=== PATIENT | female | born 1930 | race Caucasian/White ===

== ENCOUNTER 2017-07-16 15:35 | Emergency (ER) | payer OTHER ==
[~2017-07-16] VITALS: Ht 147.3 cm; Wt 52.0 kg
[~2017-07-16 15:35] MED LIST: APIX1TAB PO; ASPEC81 PO; CHOLTAB3 PO; EVS60 PO; EZET10TA63 PO; LEVO-217 PO; LISI-725 PO; METO100T14 PO; METO50TA16 PO; SIMV40TA2 PO; ZNTT/150 PO
[2017-07-16 15:37] VITALS: TEMP 36.5; Ht 147.3 cm; Wt 52.0 kg
--- NOTE | 2017-07-16 16:22 | EMERGENCY ROOM VISIT NOTE ---
History First contact with patient: 15:42 Chief Complaint: CONFUSION Stated Complaint: CONFUSED, HALLUCINATING History of Present Illness The patient is a 87 year old female who presents to the Emergency Room with complaints of hallucinations. She is accompanied by her grandnephew, who is one of her main caretakers. Her grandnephew notes that for the past 2 days she's been hallucinating. He called her on 2 occasions and stated that she has been seeing children in the house. He is gone over the house to investigate this, and they're not been any children there. When I asked the patient, the patient states that after her grandnephew came to investigate and stated there were no children there, she felt like perhaps she was seeing things. She also states that she's been hearing voices of her grandson and daughter outside of her house, when she looked outside they were there. Her grandnephew states that she does not have a grandson or daughter. The patient denies any nausea, vomiting, diarrhea or constipation. She states "My stomach always bothers me". Her grandson states that this is a chronic complaint. She has not had any urinary complaints including dysuria or urinary frequency. However the grandson states that he went over today, and noted that her urine in the toilet bowl was very concentrated. He denies noting any caryn purulence in the urine or blood. She denies any chest pain, palpitations, orthopnea, presyncope or syncope. She' s not had any worsening lower extremity edema. There is no history of falls at home, or head trauma. Her grandnephew view states that at her baseline she does very well. She is independent, lives alone, manage her own medications, and is usually alert and oriented to person place and time. Review of Systems A 10 point review of systems was negative unless stated above. Past Medical/Surgical History Medical Problems: (1) CAD (coronary artery disease) (2) Knee pain Surgical Problems: (1) Hx of CABG The patient difficulty providing her own medical history. History is gathered from review of medication. Coronary artery disease with CABG and stenting Hypothyroidism Hypertension Hyperlipidemia GERD Osteoporosis History of pacemaker placement Social History Smoking Status: Never Smoker Smokeless Tobacco Use: No Marital Status: Occupation Status: retired Current/Historical Medications Scheduled Apixaban (Eliquis), 1 TAB PO BID Aspirin Enteric Coated (Ecotrin Or Generic *), 81 MG PO DAILY Cholecalciferol (Vitamin D3), 1,000 INTER.UNIT PO DAILY Donepezil HCl (Donepezil HCl), 5 MG PO DAILY Ezetimibe (Zetia), 10 MG PO DAILY Levothyroxine Sodium (Levothyroxine Sodium), 25 MCG PO QAM Losartan Potassium (Losartan Potassium), 50 MG PO DAILY Metoprolol Tartrate (Lopressor) (Lopressor), 100 MG PO HS Metoprolol Tartrate (Lopressor) (Lopressor), 50 MG PO HS Ranitidine (Zantac), 150 MG PO BID Sertraline HCl (Sertraline HCl), 25 MG PO DAILY Simvastatin (Zocor), 40 MG PO QPM Allergies NKA Physical Exam Vital Signs Date Time Temp Pulse Resp B/P (MAP) Pulse Ox O2 Delivery O2 Flow Rate FiO2 07/16/17 18:25 71 173/103 95 07/16/17 16:50 65 173/101 96 Room Air 07/16/17 15:37 36.5 76 20 170/113 97 Room Air Pain Rating (0-10): 0 Physical Exam Constitutional: Vital signs as above were reviewed. Eyes: Pupils equal, round, and reactive to light. Extraocular muscles are intact. No proptosis. No photophobia. ENT: Mucous membranes are moist. Oropharynx is clear. No sinus tenderness. TMs are clear bilaterally. Cardiovascular: Heart with a irregular rate and rhythm. No pedal edema appreciated. Midline sternotomy scar well-healed Respiratory: Lungs clear to auscultation bilaterally. No wheezes, rales, or rhonchi appreciated. No accessory muscle use. No retractions. No increased work of breathing. GI: Abdomen soft, nontender, nondistended. Normal active bowel sounds. No abdominal hernias appreciated. No rebound. No guarding. Mild tenderness to palpation with left flank palpation : No CVA tenderness appreciated. Musculoskeletal: No midline cervical or vertebral tenderness. No gross deformities. No bony tenderness. No calf swelling or tenderness. Integumentary: Warm, dry, no rashes appreciated. Neurological: Patient awake, alert, and oriented x 3. Normal level of consciousness. Cranial nerves two through 12 grossly intact. Motor 5 out of 5 strength bilateral upper and lower extremities. Normal finger to nose testing Negative pronator drift Lymph: No cervical lymphadenopathy appreciated. Medical Decision & Procedures Laboratory Results 07/16/17 16:15 Red Blood Count 4.63, Mean Corpuscular Volume 90.9, Mean Corpuscular Hemoglobin 29.6, Mean Corpuscular Hemoglobin Concent 32.5, Mean Platelet Volume 11.9, Neutrophils (%) (Auto) 70.6, Lymphocytes (%) (Auto) 15.3, Monocytes (%) (Auto) 12.7, Eosinophils (%) (Auto) 1.0, Basophils (%) (Auto) 0.2, Neutrophils # (Auto ) 4.05, Lymphocytes # (Auto) 0.88, Monocytes # (Auto) 0.73, Eosinophils # (Auto ) 0.06, Basophils # (Auto) 0.01 07/16/17 16:15 Test 07/16/17 16:15 07/16/17 17:15 White Blood Count 5.74 K/uL (4.8-10.8) Red Blood Count 4.63 M/uL (4.2-5.4) Hemoglobin 13.7 g/dL (12.0-16.0) Hematocrit 42.1 % (37-47) Mean Corpuscular Volume 90.9 fL (80-100) Mean Corpuscular Hemoglobin 29.6 pg (25-34) Mean Corpuscular Hemoglobin Concent 32.5 g/dl (32-36) Platelet Count 188 K/uL (130-400) Mean Platelet Volume 11.9 fL (7.4-10.4) Neutrophils (%) (Auto) 70.6 % Lymphocytes (%) (Auto) 15.3 % Monocytes (%) (Auto) 12.7 % Eosinophils (%) (Auto) 1.0 % Basophils (%) (Auto) 0.2 % Neutrophils # (Auto) 4.05 K/uL (1.4-6.5) Lymphocytes # (Auto) 0.88 K/uL (1.2-3.4) Monocytes # (Auto) 0.73 K/uL (0.11-0.59) Eosinophils # (Auto) 0.06 K/uL (0-0.5) Basophils # (Auto) 0.01 K/uL (0-0.2) RDW Standard Deviation 49.3 fL (36.4-46.3) RDW Coefficient of Variation 14.8 % (11.5-14.5) Immature Granulocyte % (Auto) 0.2 % Immature Granulocyte # (Auto) 0.01 K/uL (0.00-0.02) Anion Gap 8.0 mmol/L (3-11) Est Creatinine Clear Calc Drug Dose 46.0 ml/min Estimated GFR () 94.3 Estimated GFR (Non- 81.4 BUN/Creatinine Ratio 32.8 (10-20) Calcium Level 8.9 mg/dl (8.5-10.1) Total Bilirubin 0.4 mg/dl (0.2-1) Aspartate Amino Transf (AST/SGOT) 18 U/L (15-37) Alanine Aminotransferase (ALT/SGPT) 15 U/L (12-78) Alkaline Phosphatase 63 U/L (45-117) Troponin I 0.016 ng/ml (0-0.045) Total Protein 6.1 gm/dl (6.4-8.2) Albumin 3.3 gm/dl (3.4-5.0) Globulin 2.8 gm/dl (2.5-4.0) Albumin/Globulin Ratio 1.2 (0.9-2) Thyroid Stimulating Hormone (TSH) 5.150 uIu/ml (0.300-4.500) Urine Color YELLOW Urine Appearance CLEAR (CLEAR) Urine pH 5.5 (4.5-7.5) Urine Specific [place] 1.025 (1.000-1.030) Urine Protein NEG (NEG) Urine Glucose (UA) NEG (NEG) Urine Ketones TRACE (NEG) Urine Occult Blood NEG (NEG) Urine Nitrite NEG (NEG) Urine Bilirubin NEG (NEG) Urine Urobilinogen NEG (NEG) Urine Leukocyte Esterase NEG (NEG) ED Course 15:45 - The patient was seen and evaluated by Dr. Erich Wasserman MD [facility] Orders: CBC, CMP, Trop, UA, EKG, CXR, CT brain non-contrast 16:00 - Discussed case with Dr. Arnold, ER attending physician 17:30 - Reviewed lab studies No acute increase in white count; normal troponin No evidence of pneumonia on x-ray; UA is grossly normal EKG reviewed: Atrial fibrillation, rate controlled at 69 beats per minutes, anterolateral T wave inversions with a previous EKG to compare to 17:50 - temperature to call patient's PCP to discuss further; was unable to contact 17:55 - Reassess the patient; she is feeling well at this time Discussed normal workup; as long as patient and family were comfortable going home, we will discharge back to the care of the PCP with emphasis on close follow-up Patient and grandnephew agreeable to the plan. Grandnephew does think she will be all right at home. He will help arrange follow-up tomorrow morning. 18:05 - Patient discharged home in stable condition Medical Decision The patient presents with hallucinations. Differential for his presentation is broad and includes urinary tract infection , pneumonia, electrolyte disturbance, dehydration, acute coronary syndrome, hypoxia. We pursued a fairly extensive lab workup on her here in the emergency department. There were no gross electro abnormalities. I I had a suspicion that perhaps her urine would be positive given the family members report of very concentrated-looking urine. However given the urine itself is fairly clean appearing. Chest x-ray was unremarkable for an acute process such as pneumonia and she was not hypoxic here in the emergency department. Review of her EKG did show atrial fibrillation that is rate controlled. She is also noted to be on Eliquisat home and therefore my suspicion for cardioembolic phenomenon is very low. She did have some anterolateral T-wave inversion, but in the setting of a normal troponin, as well as not reporting any chest pain, shortness of breath, I have a very low suspicion that her presentation is ACS- related. I sat down with the family discussed my findings with the patient and her grandnephew. I noted to them the negative lab workup pursued here in the emergency department, and as long as the patient and he felt she could manage safely at home, that I would be amenable to having him discharged and to follow up closely with her family doctor. Both the patient and grandnephew were agreement with this plan. The grandnephew noted he would make an appointment for the patient this week. I myself to make an attempt to call the primary care provider to discuss this case further but she was unavailable. The patient was feeling well at the time of discharge. In my opinion she had very good insight and seemed to be aware that her hallucinations were not actually there. At this time I I feel she can be discharged home, with close PCP follow-up, and vigilance from family members. I provided him with instructions on signs and symptoms that should prompt return to the primary care provider or the emergency room for evaluation. The patient was discharged home in stable condition. Head Trauma GCS Score: 15 Blood Pressure Screening Patient's blood pressure: Elevated blood pressure Blood pressure disposition: Elevated BP felt to be situational, Referred to PCP Impression Primary Impression: Hallucination Departure Information Dispostion Home / Self-Care Condition GOOD Referrals No Doctor, Assigned (PCP) Patient Instructions My [facility] Additional Instructions You came to the emergency department because of concerns for hallucinations. We checked her labs, and they were all normal. There is no sign of an infection. Your chest x-ray is negative for pneumonia. Your urine is negative for urinary tract infection. We checked your EKG which showed some abnormalities, but in the setting of your history of heart disease with bypass and stenting, and the fact that you are not having any cardiac symptoms, this does not need to be pursued further at this time. You have atrial fibrillation, which her heart rate is well- controlled and you're on a blood thinner, both of which are the appropriate therapies for this. Because your evaluation in the emergency room was normal, and you are feeling quite well, we felt it was safe to discharge home and have you follow up closely with her primary care provider. It is very important that you see your primary care provider this week to ensure that your symptoms continue to improve. If your symptoms fail to improve, acutely worsen, please seek medical attention immediately by either calling your primary care provider or going to your nearest emergency department. Otherwise, please see your primary care provider within 3 days to ensure that your symptoms continue to improve. It was a pleasure to be involved in your care and we wish you all the best.
--- NOTE | 2017-07-16 16:37 | DIAGNOSTIC IMAGING REPORT ---
CHEST ONE VIEW PORTABLE HISTORY: altered mental status; rule-out infection COMPARISON: None. FINDINGS: Left-sided dual-chamber pacemaker. The heart is mildly enlarged. No pneumothorax. No pleural effusions. No evidence for pulmonary edema. Incidental note is made of a right-sided azygos lobe. IMPRESSION: Mild cardiomegaly. No focal lung consolidations to suggest pneumonia. Electronically signed by: Vernon Saravia M.D. 07/16/2017 4:36 PM Dictated Date/Time: 07/16/2017 4:34 PM
[2017-07-16 16:39] LABS: BASO % 0.2 %; BASO ABS # 0.01 K/uL (0-0.2); COMPLETE YES; HEMATOCRIT 42.1 % (37-47); IG% 0.2 %; LYMPH % 15.3 %; LYMPH ABS # 0.88 K/uL (1.2-3.4); MEAN CELL VOLUME 90.9 fL (80-100); MEAN CORPUSCULAR HEMOGLOBIN 29.6 pg (25-34); MEAN CORPUSCULAR HGB CONC 32.5 g/dl (32-36); MEAN PLATELET VOLUME 11.9 fL (7.4-10.4); MONO % 12.7 %; NEUT % 70.6 %; PLATELET COUNT 188 K/uL (130-400); RED BLOOD COUNT 4.63 M/uL (4.2-5.4); WHITE BLOOD COUNT 5.74 K/uL (4.8-10.8)
--- NOTE | 2017-07-16 16:52 | DIAGNOSTIC IMAGING REPORT ---
HEAD CT NONCONTRAST CT DOSE: 537.48 mGy.cm HISTORY: Altered mental status, hallucinations x 2 days TECHNIQUE: Multiaxial CT images of the head were performed without the use of intravenous contrast. Automated exposure control was utilized for this study. A dose lowering technique was utilized adhering to the principles of ALARA. Comparison: Head CT 10/29/2010. Findings: The paranasal sinuses and mastoid air cells are clear. The calvarium and skull base are intact. There is no mass, hematoma, midline shift, acute infarct. White matter hypodensity is nonspecific but suggestive of microvascular ischemic change. The ventricles and sulci demonstrate mild age-related involutional changes. Impression: No significant change compared to the prior study. No acute intracranial abnormality. Electronically signed by: Vernon Saravia M.D. 07/16/2017 4:50 PM Dictated Date/Time: 07/16/2017 4:43 PM
[2017-07-16 17:00] LABS: BUN/CREATININE RATIO 32.8 (10-20); CALCIUM 8.9 mg/dl (8.5-10.1); CREATININE 0.64 mg/dl (0.60-1.20); POTASSIUM 3.9 mmol/L (3.5-5.1)
[2017-07-16 17:05] LABS: ALB/GLOB RATIO 1.2 (0.9-2)
[2017-07-16] MEDS ORDERED: CZR50 PO (17:06)
[2017-07-16] MEDS ORDERED: ARC5 PO (17:06)
[2017-07-16] MEDS ORDERED: LEVO25TA5 PO (17:06)
[2017-07-16] MEDS ORDERED: SERT1TAB88 PO (17:06)
[2017-07-16] MEDS ORDERED: CHOL1000 PO (17:08)
[2017-07-16 17:28] LABS: URINE APPEARANCE CLEAR (CLEAR); URINE BILIRUBIN NEG (NEG); URINE COLOR YELLOW; URINE NITRITE NEG (NEG); URINE PH 5.5 (4.5-7.5); URINE SPECIFIC GRAVITY 1.025 (1.000-1.030); UROBILINOGEN NEG (NEG); ZZUR CULT IF INDIC CLEAN CATCH NO
[2017-07-16 17:40] LABS: MANUAL MICROSCOPIC REQUIRED? NO; REVIEW REQ? NO
[2017-07-16 18:25] VITALS: BP 173/103; PULSE 71; O2SAT 95
--- NOTE | 2017-07-16 20:13 | EMERGENCY ROOM VISIT NOTE ---
History Report prepared by Satish: Brad Chao Under the Supervision of: Dr. Kal Arnold M.D. First contact with patient: 15:42 Chief Complaint: CONFUSION Stated Complaint: CONFUSED, HALLUCINATING History of Present Illness The patient is a 87 year old female who presents to the Emergency Room with complaints of intermittent visual and auditory hallucinations beginning two days ago. She states that she has been seeing children who are not actually there. She states that she has been hearing voices that are not there as well. The patient estimates that she has had four episodes where she believed to see children. She has no psychiatric history. Per family, the patient is normally independent at home. He denies any known recent falls, trauma, or head injury. He states the patient is at baseline mentally other than the hallucinations. The patient has a pacemaker in place. She has a history of CABG and has two cardiac stents in place. She has complained of a headache and abdominal pain, but states that these are normal for her. The patient denies any speech slur, fevers, chills, diaphoresis, numbness, or weakness. She denies any new changes to her ambulation. Source of History: patient, family Onset: two days ago Symptom Intensity: visual and auditory Quality: other (hallucinations) Timing: intermittent Associated Symptoms: + headache, + abdominal pain, No fevers, No chills, No diaphoresis Review of Systems See HPI for pertinent positives & negatives. A total of 10 systems reviewed and were otherwise negative. Past Medical & Surgical Medical Problems: (1) CAD (coronary artery disease) (2) Knee pain Surgical Problems: (1) Hx of CABG Family History No pertinent family history stated. Social History Smoking Status: Never Smoker Marital Status: Occupation Status: retired Current/Historical Medications Scheduled Apixaban (Eliquis), 1 TAB PO BID Aspirin Enteric Coated (Ecotrin Or Generic *), 81 MG PO DAILY Cholecalciferol (Vitamin D3), 1,000 INTER.UNIT PO DAILY Donepezil HCl (Donepezil HCl), 5 MG PO DAILY Ezetimibe (Zetia), 10 MG PO DAILY Levothyroxine Sodium (Levothyroxine Sodium), 25 MCG PO QAM Losartan Potassium (Losartan Potassium), 50 MG PO DAILY Metoprolol Tartrate (Lopressor) (Lopressor), 100 MG PO HS Metoprolol Tartrate (Lopressor) (Lopressor), 50 MG PO HS Ranitidine (Zantac), 150 MG PO BID Sertraline HCl (Sertraline HCl), 25 MG PO DAILY Simvastatin (Zocor), 40 MG PO QPM Allergies Coded Allergies: No Known Allergies (Unverified , 07/16/17) Physical Exam Vital Signs Date Time Temp Pulse Resp B/P (MAP) Pulse Ox O2 Delivery O2 Flow Rate FiO2 07/16/17 18:25 71 173/103 95 07/16/17 16:50 65 173/101 96 Room Air 07/16/17 15:37 36.5 76 20 170/113 97 Room Air Physical Exam Constitutional: Vital signs reviewed. Eyes: Pupils are equal round reactive to light. Conjunctiva are noninjected. ENT: Pharynx is clear without erythema or exudate. Mucous membranes are moist. Neck supple without meningeal signs. Respiratory: Clear to auscultation bilaterally. Breath sounds are equal bilaterally. Cardiovascular: Regular rate and rhythm. No rubs or gallops. GI: Soft, nondistended and nontender. Bowel sounds are present. Musculoskeletal: No peripheral edema. No lower extremity tenderness. Integumentary: No cyanosis. Neurological: Patient is awake, alert and oriented x3. Oriented to place, but thinks she is in [facility]. Cranial nerves II-XII are intact. Motor is 5 out of 5 all extremities. Sensation is intact to light touch all extremities. Normal speech. No pronator drift. No limb ataxia. Psychiatric: Normal affect. Medical Decision & Procedures ER Provider Diagnostic Interpretation: Radiology results as stated below per my review and the radiologist's interpretation: HEAD CT NONCONTRAST Findings: The paranasal sinuses and mastoid air cells are clear. The calvarium and skull base are intact. There is no mass, hematoma, midline shift, acute infarct. White matter hypodensity is nonspecific but suggestive of microvascular ischemic change. The ventricles and sulci demonstrate mild age-related involutional changes. Impression: No significant change compared to the prior study. No acute intracranial abnormality. Electronically signed by: Vernon Saravia M.D. 07/16/2017 4:50 PM CHEST ONE VIEW PORTABLE FINDINGS: Left-sided dual-chamber pacemaker. The heart is mildly enlarged. No pneumothorax. No pleural effusions. No evidence for pulmonary edema. Incidental note is made of a right-sided azygos lobe. IMPRESSION: Mild cardiomegaly. No focal lung consolidations to suggest pneumonia. Electronically signed by: Vernon Saravia M.D. 07/16/2017 4:36 PM Laboratory Results 07/16/17 16:15 Red Blood Count 4.63, Mean Corpuscular Volume 90.9, Mean Corpuscular Hemoglobin 29.6, Mean Corpuscular Hemoglobin Concent 32.5, Mean Platelet Volume 11.9, Neutrophils (%) (Auto) 70.6, Lymphocytes (%) (Auto) 15.3, Monocytes (%) (Auto) 12.7, Eosinophils (%) (Auto) 1.0, Basophils (%) (Auto) 0.2, Neutrophils # (Auto ) 4.05, Lymphocytes # (Auto) 0.88, Monocytes # (Auto) 0.73, Eosinophils # (Auto ) 0.06, Basophils # (Auto) 0.01 07/16/17 16:15 Test 07/16/17 16:15 07/16/17 17:15 White Blood Count 5.74 K/uL (4.8-10.8) Red Blood Count 4.63 M/uL (4.2-5.4) Hemoglobin 13.7 g/dL (12.0-16.0) Hematocrit 42.1 % (37-47) Mean Corpuscular Volume 90.9 fL (80-100) Mean Corpuscular Hemoglobin 29.6 pg (25-34) Mean Corpuscular Hemoglobin Concent 32.5 g/dl (32-36) Platelet Count 188 K/uL (130-400) Mean Platelet Volume 11.9 fL (7.4-10.4) Neutrophils (%) (Auto) 70.6 % Lymphocytes (%) (Auto) 15.3 % Monocytes (%) (Auto) 12.7 % Eosinophils (%) (Auto) 1.0 % Basophils (%) (Auto) 0.2 % Neutrophils # (Auto) 4.05 K/uL (1.4-6.5) Lymphocytes # (Auto) 0.88 K/uL (1.2-3.4) Monocytes # (Auto) 0.73 K/uL (0.11-0.59) Eosinophils # (Auto) 0.06 K/uL (0-0.5) Basophils # (Auto) 0.01 K/uL (0-0.2) RDW Standard Deviation 49.3 fL (36.4-46.3) RDW Coefficient of Variation 14.8 % (11.5-14.5) Immature Granulocyte % (Auto) 0.2 % Immature Granulocyte # (Auto) 0.01 K/uL (0.00-0.02) Anion Gap 8.0 mmol/L (3-11) Est Creatinine Clear Calc Drug Dose 46.0 ml/min Estimated GFR () 94.3 Estimated GFR (Non- 81.4 BUN/Creatinine Ratio 32.8 (10-20) Calcium Level 8.9 mg/dl (8.5-10.1) Total Bilirubin 0.4 mg/dl (0.2-1) Aspartate Amino Transf (AST/SGOT) 18 U/L (15-37) Alanine Aminotransferase (ALT/SGPT) 15 U/L (12-78) Alkaline Phosphatase 63 U/L (45-117) Troponin I 0.016 ng/ml (0-0.045) Total Protein 6.1 gm/dl (6.4-8.2) Albumin 3.3 gm/dl (3.4-5.0) Globulin 2.8 gm/dl (2.5-4.0) Albumin/Globulin Ratio 1.2 (0.9-2) Thyroid Stimulating Hormone (TSH) 5.150 uIu/ml (0.300-4.500) Urine Color YELLOW Urine Appearance CLEAR (CLEAR) Urine pH 5.5 (4.5-7.5) Urine Specific [place] 1.025 (1.000-1.030) Urine Protein NEG (NEG) Urine Glucose (UA) NEG (NEG) Urine Ketones TRACE (NEG) Urine Occult Blood NEG (NEG) Urine Nitrite NEG (NEG) Urine Bilirubin NEG (NEG) Urine Urobilinogen NEG (NEG) Urine Leukocyte Esterase NEG (NEG) Laboratory results as reviewed by me. ECG Indication: altered mental status Rate (beats per minute): 69 Rhythm: atrial fibrillation Findings: PVC, T-wave inversion (V3-V6) ED Course 1542: The patient was evaluated in room C5. A complete history and physical exam was performed. Medical Decision This is an 87-year-old female who presents with hallucinations. Differential diagnosis includes intracranial mass, intracranial hemorrhage, psychiatric illness, metabolic derangement, infection. I did perform a limited focused review of portions of the patient's old chart on the electronic medical record. The patient has had no recent pertinent visits to this hospital. I did evaluate the patient as noted above. IV access was established. The patient was placed on a continuous community service aide. I did order and personally review the patient's 12-lead EKG and chest x-ray as described above. I did order and review the patient's blood work as noted in the electronic medical record. Urinalysis is negative for infection. I did order a CT of the head. I did review the images myself as well as the radiology report as described above. There is no evidence of acute intracranial process. On reassessment the patient has no complaints. At this time the cause of her hallucinations of unclear. She will follow up closely with her doctor. She was discharged in good condition. Resident Physician Supervision Note: I did evaluate and examine this patient myself. I did guide management for the patient. I agree with the resident's (Dr. Wasserman) assessment as discussed. Please see the resident's dictation for further details. Medication Reconcilliation Current Medication List: was personally reviewed by me Blood Pressure Screening Patient's blood pressure: Elevated blood pressure Blood pressure disposition: Referred to PCP Impression Primary Impression: Hallucination Additional Impression: Poorly controlled blood pressure Scribe Attestation The scribe's documentation has been prepared under my direct and personally reviewed by me in its entirety. I confirm that the note above accurately reflects all work, treatment, procedures, and medical decision making performed by me. Departure Information Dispostion Home / Self-Care Referrals No Doctor, Assigned (PCP) Forms HOME CARE DOCUMENTATION FORM, IMPORTANT VISIT INFORMATION, WORK / SCHOOL INSTRUCTIONS Patient Instructions My [facility] Additional Instructions You came to the emergency department because of concerns for hallucinations. We checked her labs, and they were all normal. There is no sign of an infection. Your chest x-ray is negative for pneumonia. Your urine is negative for urinary tract infection. We checked your EKG which showed some abnormalities, but in the setting of your history of heart disease with bypass and stenting, and the fact that you are not having any cardiac symptoms, this does not need to be pursued further at this time. You have atrial fibrillation, which her heart rate is well- controlled and you're on a blood thinner, both of which are the appropriate therapies for this. Because your evaluation in the emergency room was normal, and you are feeling quite well, we felt it was safe to discharge home and have you follow up closely with her primary care provider. It is very important that you see your primary care provider this week to ensure that your symptoms continue to improve. If your symptoms fail to improve, acutely worsen, please seek medical attention immediately by either calling your primary care provider or going to your nearest emergency department. Otherwise, please see your primary care provider within 3 days to ensure that your symptoms continue to improve. It was a pleasure to be involved in your care and we wish you all the best. Problem Qualifiers
== END 2017-07-16 18:26 | disposition home or self-care (01) ==
LOC: C.EDB 15:36 → C.EDC 18:26
DX: R44.3 Hallucinations, unspecified (principal); I48.91 Unspecified atrial fibrillation; I25.10 Atherosclerotic heart disease of native coronary artery without angina pectoris; Z95.1 Presence of aortocoronary bypass graft; Z95.5 Presence of coronary angioplasty implant and graft; E03.9 Hypothyroidism, unspecified; I10 Essential (primary) hypertension; E78.5 Hyperlipidemia, unspecified; K21.9 Gastro-esophageal reflux disease without esophagitis; M81.0 Age-related osteoporosis without current pathological fracture; Z95.0 Presence of cardiac pacemaker; Z79.01 Long term (current) use of anticoagulants; Z79.899 Other long term (current) drug therapy; Z79.82 Long term (current) use of aspirin

== ENCOUNTER 2017-08-02 12:21 | Inpatient (IN) | payer OTHER ==
[~2017-08-02] VITALS: Ht 147.3 cm; Wt 54.9 kg
[~2017-08-02 12:21] MED LIST changes: +ARC5 PO; +CHOL1000 PO; -CHOLTAB3 PO; +CZR50 PO; -EVS60 PO; -LEVO-217 PO; +LEVO25TA5 PO; -LISI-725 PO; +SERT1TAB88 PO
[2017-08-02] MEDS ORDERED: MoRPHine SULFATE 4 MG/ML 1 ML CARP\\VIAL IV STA (13:07)
[2017-08-02] MEDS ORDERED: ONDANSETRON INJ 2 MG/ML 2 ML VIAL IV STA (13:07)
--- NOTE | 2017-08-02 13:41 | DIAGNOSTIC IMAGING REPORT ---
HEAD WITHOUT CONTRAST (CT) CLINICAL HISTORY: 87 years-old Female with fall; ? head strike. Acute head injury status post fall TECHNIQUE: Multiple axial CT images of the head were obtained without contrast. A dose lowering technique was utilized adhering to the principles of ALARA. CT DOSE: 638.56 mGycm COMPARISON: CT head 07/16/2017. FINDINGS: No acute intracranial hemorrhage, midline shift, mass, or large territorial ischemia. Moderate interval atrophy, notably involving the bilateral frontal lobes. Cavum septum lucidum noted. No definite extra-axial fluid collections. Moderate background chronic microvascular ischemic changes are noted. Cerebral vascular calcifications are seen at the level of the skull base. Remote lacunar infarction of the left lentiform nucleus. The calvarium is intact. The paranasal sinuses, mastoid air cells, and middle ear cavities are clear. IMPRESSION: 1. No acute intracranial abnormality. 2. Atrophy with chronic microvascular ischemic changes. The above report was generated using voice recognition software. It may contain grammatical, syntax or spelling errors. Electronically signed by: Jaspal Og M.D. 08/02/2017 1:40 PM Dictated Date/Time: 08/02/2017 1:37 PM
[2017-08-02] MEDS ORDERED: ASPI81TA28 PO (13:54)
--- NOTE | 2017-08-02 14:13 | DIAGNOSTIC IMAGING REPORT ---
PELVIS/BILATERAL HIP 2 VIEWS CLINICAL HISTORY: fall; L pelvis and hip pain trauma. Pain. COMPARISON STUDY: None FINDINGS: Subcapital fracture left hip mild superior displacement left femoral shaft. Moderate degenerative change right hip. No additional fracture. Soft tissue vascular calcifications. IMPRESSION: Subcapital fracture left hip with moderate superior migration left femoral shaft. The above report was generated using voice recognition software. It may contain grammatical, syntax or spelling errors. Electronically signed by: Cholo Lainez M.D. 08/02/2017 2:12 PM Dictated Date/Time: 08/02/2017 2:12 PM
[2017-08-02 14:30] LABS: BASO % 0.2 %; BASO ABS # 0.02 K/uL (0-0.2); COMPLETE YES; EOS % 0.3 %; HEMATOCRIT 43.2 % (37-47); IG% 0.4 %; LYMPH ABS # 0.73 K/uL (1.2-3.4); MEAN CELL VOLUME 91.9 fL (80-100); MEAN CORPUSCULAR HEMOGLOBIN 30.2 pg (25-34); MEAN CORPUSCULAR HGB CONC 32.9 g/dl (32-36); MEAN PLATELET VOLUME 12.1 fL (7.4-10.4); MONO % 5.8 %; NEUT % 87.3 %; PLATELET COUNT 191 K/uL (130-400)
[2017-08-02 14:32] LABS: BLOOD UREA NITROGEN 15 mg/dl (7-18); BUN/CREATININE RATIO 20.9 (10-20); CALCIUM 9.2 mg/dl (8.5-10.1); CARBON DIOXIDE 27 mmol/L (21-32); CHLORIDE 106 mmol/L (98-107); CREATININE 0.72 mg/dl (0.60-1.20); GLUCOSE 125 mg/dl (70-99); POTASSIUM 4.5 mmol/L (3.5-5.1); SODIUM 139 mmol/L (136-145)
[2017-08-02 14:37] LABS: PROTHROMBIN TIME (PATIENT) 10.8 SECONDS (9.0-12.0)
--- NOTE | 2017-08-02 14:41 | EMERGENCY ROOM VISIT NOTE ---
ED Visit Note First contact with patient: 12:46 87-year-old female fell earlier today and injured her hip. The patient was fully evaluated by Manuel Arnold PA-C. Please see his note. I also independently evaluated the patient. The patient does not appear to have a head injury but does appear to have a hip fracture. Patient will require further evaluation in the hospital. The hospitalist was consulted. A consult was also placed with orthopedics.
--- NOTE | 2017-08-02 14:51 | DIAGNOSTIC IMAGING REPORT ---
CHEST ONE VIEW PORTABLE HISTORY: 87 years-old Female hip fracture preoperative exam in a patient with acute left hip fracture COMPARISON: Chest radiograph 07/16/2017 TECHNIQUE: Portable upright AP view of the chest FINDINGS: Cardiac silhouette is moderately enlarged. Prior median sternotomy. Atherosclerosis of the aorta. Surgical clips project over the left heart border. Left subclavian pacer is noted with leads overlying the right atrium and right ventricle. Azygos lobe and fissure noted. There is no pneumothorax, pleural effusion or focal airspace consolidation. No overt pulmonary edema. Bones appear grossly intact. Degenerative changes of the shoulders and spine are noted. IMPRESSION: 1. No acute cardiopulmonary process. 2. Cardiomegaly without overt pulmonary edema. The above report was generated using voice recognition software. It may contain grammatical, syntax or spelling errors. Electronically signed by: Jaspal Og M.D. 08/02/2017 2:50 PM Dictated Date/Time: 08/02/2017 2:48 PM
[2017-08-02] MEDS ORDERED: ONDANSETRON INJ 2 MG/ML 2 ML VIAL IV PRN (15:30)
[2017-08-02] MEDS ORDERED: SOD PHOSPHATE/SOD BIPHOSPHATE ENEMA 132 ML BTL PR PRN (15:45)
[2017-08-02] MEDS ORDERED: BISACODYL 10 MG SUPP PR PRN (15:45)
[2017-08-02] MEDS ORDERED: NALOXONE HCL 0.4 MG/1 ML VIAL/CARP IV PRN (15:45)
[2017-08-02] MEDS ORDERED: MAGNESIUM HYDROXIDE SUSP 30 ML UDC PO PRN (15:45)
[2017-08-02] MEDS ORDERED: IV FLUIDS COMPLETED PRN (16:00)
--- NOTE | 2017-08-02 16:21 | EMERGENCY ROOM VISIT NOTE ---
ED Visit Note First contact with patient: 12:46 Chief Complaint: I fell and hurt my left hip. History of Present Illness: Ms. Espino is a 87-year-old white female who is brought into the ED via wheelchair accompanied by her grandnephew complaining of left hip pain following a fall. Patient and grandnephew reports that she is an independent person. She does have someone help her when she needs to go to the store but she lives alone. Reported today she was going to a clinic to get her flu shot. While stepping up to the curb she tripped on the curb and fell onto her left hip. An patient reports she's been having pain since that event which happened approximately 2 hours ago. It is also reported she struck her head but did not have a loss of consciousness. Patient feels she did not strike her head. Currently she is complaining of severe pain over the greater trochanter and the anterior aspect of the hip joint. She rates her discomfort 5/10. Her pain is nonradiating. Her pain worsens with palpation, weightbearing and all movements of the hip. She has not identified any alleviating factors related to the pain. She has not had any medications for pain prior to arrival at the hospital. She denies headache, dizziness, lightheadedness, abnormal neurological symptoms , neck pain, back pain, chest pain, shortness of breath, abdominal pain, nausea , vomiting, left lower extremity weakness/numbness/tingling, right lower extremity pain. Review of Systems: As noted above in history of present illness. All body systems were reviewed and found to be negative as noted above. Past Medical History: Coronary artery disease, atrial fibrillation, hypertension , bronchitis, status post CABG. Current Medications: Medications Dose Route/Sig Max Daily Dose Days Date Category Aspirin Ec (Aspirin) 81 Mg Tab 81 Mg PO DAILY 08/02/17 Reported Vitamin D3 (Cholecalciferol) 1,000 Unit Tab 1,000 Inter.unit PO DAILY 07/16/17 Reported Sertraline HCl 25 Mg Tab 25 Mg PO DAILY 07/16/17 Reported Donepezil HCl 5 Mg Tab 5 Mg PO HS 07/16/17 Reported Losartan Potassium 50 Mg Tab 50 Mg PO DAILY 07/16/17 Reported Levothyroxine Sodium 25 Mcg Tab 25 Mcg PO QAM 07/16/17 Reported Zocor (Simvastatin) 40 Mg Tab 40 Mg PO QPM 04/30/15 Reported Eliquis (Apixaban) 2.5 Mg Tab 1 Tab PO BID 04/30/15 Reported Lopressor (Metoprolol Tartrate) 100 Mg Tab 100 Mg PO HS 04/30/15 Reported Zantac (Ranitidine HCl) 150 Mg Tab 150 Mg PO BID 10/29/10 Reported Zetia (Ezetimibe) 10 Mg Tab 10 Mg PO DAILY 10/29/10 Reported Allergies to Medications: Patient denies. Social History: Patient is currently retired; she feels safe in her home environment; she denies tobacco and alcohol use. Physical Examination: Vital Signs: Date Time Temp Pulse Resp B/P (MAP) Pulse Ox O2 Delivery O2 Flow Rate FiO2 08/02/17 15:22 75 12 138/82 95 Room Air 08/02/17 14:12 81 16 174/101 97 Nasal Cannula 2.0 08/02/17 13:29 Nasal Cannula 2.0 08/02/17 13:01 74 08/02/17 12:38 37.3 76 18 168/93 93 Room Air GENERAL: 87-year-old female in mild to moderate distress due to pain, nontoxic- appearing, afebrile and hemodynamically stable. NEUROLOGICAL: Awake, alert and oriented to person, place but not time. Answering questions appropriately and following commands. Good hand eye coordination. No focal motor sensory deficits. Cranial nerves II through XII grossly intact. SKIN: Warm, dry and pink. No soft tissue eruptions or trauma noted. HEENT: Atraumatic and normocephalic. Skull: No bony deformity, bony tenderness , swelling or ecchymosis. No raccoon's eyes or ferreira signs. No drainage in the ears of the nostril; no hemotympanum. Face: No bony tenderness, swelling or ecchymosis. PERRL. Sclera white and conjunctiva pale . No malocclusion. No intraoral trauma. Airway patent. Trachea midline. No jugular venous distention. BACK: No tenderness over the bony cervical and thoracic spine. THORAX: Lungs sounds are clear to auscultation and equal bilaterally with symmetrical chest wall. No crepitus, tenderness, subcutaneous air or deformities noted. HEART: Irregular rate and rhythm. No gallops, rubs or murmurs are appreciated. ABDOMEN: Flat, soft and nontender. Positive bowel sounds in all quadrants. No guarding, rigidity or organomegaly. PELVIS: Stable and nontender to compression and rock. UPPER EXTREMITIES: No gross bony deformity. No tenderness over the shoulders, upper arms, elbows, forearms, wrists and hands. Distal pulses and sensation are intact. LOWER EXTREMITIES: No gross bony deformity. There is mild external rotation of the left hip but no shortening. She has moderate tenderness over the entire left hip joint without any palpable crepitus. There is no swelling or ecchymosis in this area. She refused to do range of motion throughout the left extremity due to pain in the hip. There was no tenderness over the hip, lower leg, foot or ankle. She was able to wiggle the toes against resistance. Throughout the foot the skin was warm and pink and capillary refill is brisk. The right extremity had no tenderness in the hip, knee, lower leg, ankle foot. She had full range of motion of these joints and she is able to wiggle her toes. The right foot is neurologically intact. ED Course: Patient is assessed as noted above. Patient's medication list was reviewed. Laboratory Testing: Test 08/02/17 13:05 08/02/17 15:21 Range/Units White Blood Count 12.10 4.8-10.8 K/uL Red Blood Count 4.70 4.2-5.4 M/uL Hemoglobin 14.2 12.0-16.0 g/dL Hematocrit 43.2 37-47 % Mean Corpuscular Volume 91.9 80-100 fL Mean Corpuscular Hemoglobin 30.2 25-34 pg Mean Corpuscular Hemoglobin Concent 32.9 32-36 g/dl Platelet Count 191 130-400 K/uL Mean Platelet Volume 12.1 7.4-10.4 fL Neutrophils (%) (Auto) 87.3 % Lymphocytes (%) (Auto) 6.0 % Monocytes (%) (Auto) 5.8 % Eosinophils (%) (Auto) 0.3 % Basophils (%) (Auto) 0.2 % Neutrophils # (Auto) 10.56 1.4-6.5 K/uL Lymphocytes # (Auto) 0.73 1.2-3.4 K/uL Monocytes # (Auto) 0.70 0.11-0.59 K/uL Eosinophils # (Auto) 0.04 0-0.5 K/uL Basophils # (Auto) 0.02 0-0.2 K/uL RDW Standard Deviation 50.9 36.4-46.3 fL RDW Coefficient of Variation 15.0 11.5-14.5 % Immature Granulocyte % (Auto) 0.4 % Immature Granulocyte # (Auto) 0.05 0.00-0.02 K/uL Prothrombin Time 10.8 9.0-12.0 SECONDS Prothromb Time International Ratio 1.0 0.9-1.1 Activated Partial Thromboplast Time 25.8 21.0-31.0 SECONDS Partial Thromboplastin Ratio 1.0 Sodium Level 139 136-145 mmol/L Potassium Level 4.5 3.5-5.1 mmol/L Chloride Level 106 98-107 mmol/L Carbon Dioxide Level 27 21-32 mmol/L Anion Gap 6.0 3-11 mmol/L Blood Urea Nitrogen 15 7-18 mg/dl Creatinine 0.72 0.60-1.20 mg/dl Estimated GFR () 88.5 Estimated GFR (Non- 76.4 BUN/Creatinine Ratio 20.9 10-20 Random Glucose 125 70-99 mg/dl Calcium Level 9.2 8.5-10.1 mg/dl Creatine Kinase MB Ratio 0-3.0 EKG: Was read by myself and reviewed with Dr. Romero; shows atrial fibrillation with a ventricular rate of 79 bpm. There is multiple ST abnormalities but this was compared to her previous from June 2017 and no acute changes were noted. Chest x-ray: Was read by myself and the radiologist showing no acute coronary/ pulmonary process, cardiomegaly without pulmonary edema. Head CT: Was reviewed by myself and read by the radiologist showing no acute intracranial abnormalities. Atrophy with chronic microvascular ischemic changes was noted. Pelvis and Hip X-Rays: Was read by myself and the radiologist and shows subcapital fracture of the left hip with moderate superior migration of the left femoral shaft. An IV lock was initiated and patient received 4 mg of morphine IV for pain and 4 mg of Zofran IV. Patient was reassessed multiple times during her stay in the emergency department. Patient's case was reviewed with Dr. Romero; we agreed on diagnostic approach, treatment, disposition and plan per Patient's case was [facility] with [facility]. Patient and granddaughter few were educated about today's findings and instructed on her treatment plan. Clinical Impression: Left hip fracture. Status post fall. Decision-Making: Initially for her fall I considered intracranial bleed, skull fracture, hip fracture, pelvis fracture and other causes. Disposition and Plan: Patient be brought in the hospital by the [facility]; please see their notes and orders for final disposition and plan.
[2017-08-02 17:11] VITALS: BP 171/98; PULSE 82; TEMP 36.5; O2SAT 94; Ht 147.3 cm; Wt 54.9 kg
[2017-08-02 17:19] LABS: CKMB/CK RATIO 2.6 (0-3.0)
[2017-08-02 17:27] LABS: URINE APPEARANCE CLEAR (CLEAR); URINE BILIRUBIN NEG (NEG); URINE COLOR YELLOW; URINE NITRITE NEG (NEG); URINE SPECIFIC GRAVITY 1.021 (1.000-1.030); UROBILINOGEN NEG (NEG); ZZURINE CULT IF INDIC CATH NO
[2017-08-02 17:34] LABS: MANUAL MICROSCOPIC REQUIRED? NO; REVIEW REQ? NO
--- NOTE | 2017-08-02 17:43 | History and Physical ---
History & Physical Date & Time of Service: Aug 02, 2017 at 16:18 Chief Complaint: Fell, Left Hip/Leg Pain Primary Care Physician: No Doctor, Assigned History of Present Illness Source: patient, family Pt is 87y/o F with PMH a-fib, HTN, CAD, CAD with hx bypass, stents, hypercholesterolemia, hypothyroidism, dementia, depression presents with c/o L hip pain. States pt was at [facility] where she lives, and missed a step and fell. Pt thinks she may have hit her head, but denies any LOC and reports remembers falling. States was unable to bear any weight to left leg. Pt' s friend called pt's great nephew and he brought her in to ER today. Nephew reports pt c/o LYLE intermittently and c/o LYLE earlier but now pt denies any current LYLE. Nephew also reports that pt a couple of weeks ago was having hallucinations "see children running in apartment" and she was evaluated at ER at that time with essentially negative workup. Nephew reports pt does often have some confusion. Pt lives alone at the [facility] and that pt is usually independent. Denies fever/chills, diaphoresis, N/V/D/C, dizziness, syncope, vision changes, neck pain, CP, SOB, orthopnea, palpitations, cough, sore throat, choking, otalgia, rhinorrhea, abdominal pain, extremity paresthesias, extremity edema, rashes, urinary symptoms. Attempted to call pt's PCP office to verify medical hx and meds however unable to reach. Called pt's pharmacy [facility] in [place] to confirm meds. Pt has losartan listed on med list, however pharmacy states that she hasn't had that filled in months. Pt states that she does all her own meds, but is unsure what she is using at this time. Unable to find any previous echo in pt's [facility] or [facility] records. In ER today Xray hip: subcapital fracture of L hip. CXR: no acute process, cardiomegaly without overt pulmonary edema. Negative CT scan head. EKG: a-fib, rate controlled. WBC: 12, H/H 14/43. GFR>60. BP:168/93, P:76, afebrile, O2: 93% on RA. Pt was given morphine 4mg and zofran 4mg in ER. Pt states that helped with pain, however family notes that pt more sleepy since the meds. Past Medical/Surgical History Medical Problems: (1) Atrial fibrillation Status: Chronic (2) CAD (coronary artery disease) Status: Chronic (3) Dementia Status: Chronic (4) Depression Status: Chronic (5) HTN (hypertension) Status: Chronic (6) Hx of cardiac pacemaker Status: Resolved (7) Hyperlipidemia Status: Chronic (8) Hypothyroidism Status: Chronic (9) Knee pain Status: Resolved Surgical Problems: (1) Hx of CABG Status: Chronic (2) Hx of heart artery stent Status: Resolved Family History FH: CAD (coronary artery disease) BROTHER (HI age 37) FH: cancer SISTER (cervical CA) Stroke FATHER Social History Smoking Status: Never Smoker Smokeless Tobacco Use: No Alcohol Use: none Drug Use: none Marital Status: Housing status: lives alone (lives in [facility]) Occupational Status: retired Allergies Coded Allergies: No Known Allergies (Unverified , 08/02/17) Home Medications Scheduled Apixaban (Eliquis), 1 TAB PO BID Aspirin (Aspirin Ec), 81 MG PO DAILY Cholecalciferol (Vitamin D3), 1,000 INTER.UNIT PO DAILY Donepezil HCl (Donepezil HCl), 5 MG PO HS Ezetimibe (Zetia), 10 MG PO DAILY Levothyroxine Sodium (Levothyroxine Sodium), 25 MCG PO QAM Losartan Potassium (Losartan Potassium), 50 MG PO DAILY Metoprolol Tartrate (Lopressor) (Lopressor), 100 MG PO HS Ranitidine (Zantac), 150 MG PO BID Sertraline HCl (Sertraline HCl), 25 MG PO DAILY Simvastatin (Zocor), 40 MG PO QPM Review of Systems See HPI for pertinent positives & negatives. All other systems reviewed and were otherwise negative Physical Exam Vital Signs Date Time Temp Pulse Resp B/P (MAP) Pulse Ox O2 Delivery O2 Flow Rate FiO2 08/02/17 15:22 75 12 138/82 95 Room Air 08/02/17 14:12 81 16 174/101 97 Nasal Cannula 2.0 08/02/17 13:29 Nasal Cannula 2.0 08/02/17 13:01 74 08/02/17 12:38 37.3 76 18 168/93 93 Room Air General Appearance: WD/WN, no apparent distress (pt lying supine in bed) Head: normocephalic, atraumatic Eyes: normal inspection, PERRL, EOMI, sclerae normal ENT: pharynx normal, + pertinent finding (hard of hearing) Neck: supple, no JVD, trachea midline, + pertinent finding (+approx 2cm soft non-tender mass to submental/submandibular region with no overlying skin discoloration) Respiratory/Chest: chest non-tender, lungs clear, normal breath sounds, no respiratory distress, no accessory muscle use Cardiovascular: no edema, normal peripheral pulses, + irregularly irregular Abdomen/GI: normal bowel sounds, non tender, soft Extremities/Musculoskelatal: no pedal edema, + pertinent finding (Noted left leg shortened and L foot mildly rotated laterally. Left hip:diffuse mild tenderness to palpation (examined after pt given pain med and reports much decreased pain). pt unable to attempt movement of left hip. no tenderness to L upper leg, L lower leg, L ankle or foot. Pedal pushes intact bilaterally with tenderness reproduced to left hip with left pedal push. Right hip/leg non-tender , ROM hip, knee, ankle intact. Upper arms bilaterally non-tender, ROM intact. Upper and Lower Bilaterally distal pulses intact, brisk capillary refill, sensation to light touch. ) Neurologic/Psych: alert, normal mood/affect, + pertinent finding (oriented to person, place, day, year, confused on month) Skin: normal color, warm/dry Diagnostics Laboratory Results Results Past 24 Hours Test 08/02/17 13:05 08/02/17 15:21 Range/Units White Blood Count 12.10 4.8-10.8 K/uL Red Blood Count 4.70 4.2-5.4 M/uL Hemoglobin 14.2 12.0-16.0 g/dL Hematocrit 43.2 37-47 % Mean Corpuscular Volume 91.9 80-100 fL Mean Corpuscular Hemoglobin 30.2 25-34 pg Mean Corpuscular Hemoglobin Concent 32.9 32-36 g/dl Platelet Count 191 130-400 K/uL Mean Platelet Volume 12.1 7.4-10.4 fL Neutrophils (%) (Auto) 87.3 % Lymphocytes (%) (Auto) 6.0 % Monocytes (%) (Auto) 5.8 % Eosinophils (%) (Auto) 0.3 % Basophils (%) (Auto) 0.2 % Neutrophils # (Auto) 10.56 1.4-6.5 K/uL Lymphocytes # (Auto) 0.73 1.2-3.4 K/uL Monocytes # (Auto) 0.70 0.11-0.59 K/uL Eosinophils # (Auto) 0.04 0-0.5 K/uL Basophils # (Auto) 0.02 0-0.2 K/uL RDW Standard Deviation 50.9 36.4-46.3 fL RDW Coefficient of Variation 15.0 11.5-14.5 % Immature Granulocyte % (Auto) 0.4 % Immature Granulocyte # (Auto) 0.05 0.00-0.02 K/uL Prothrombin Time 10.8 9.0-12.0 SECONDS Prothromb Time International Ratio 1.0 0.9-1.1 Activated Partial Thromboplast Time 25.8 21.0-31.0 SECONDS Partial Thromboplastin Ratio 1.0 Sodium Level 139 136-145 mmol/L Potassium Level 4.5 3.5-5.1 mmol/L Chloride Level 106 98-107 mmol/L Carbon Dioxide Level 27 21-32 mmol/L Anion Gap 6.0 3-11 mmol/L Blood Urea Nitrogen 15 7-18 mg/dl Creatinine 0.72 0.60-1.20 mg/dl Estimated GFR () 88.5 Estimated GFR (Non- 76.4 BUN/Creatinine Ratio 20.9 10-20 Random Glucose 125 70-99 mg/dl Calcium Level 9.2 8.5-10.1 mg/dl Creatine Kinase MB Ratio 0-3.0 Diagnostic Radiology CXR: IMPRESSION: 1. No acute cardiopulmonary process. 2. Cardiomegaly without overt pulmonary edema. HEAD CT: IMPRESSION: 1. No acute intracranial abnormality. 2. Atrophy with chronic microvascular ischemic changes. HIP/PELVIS XRAY: IMPRESSION: Subcapital fracture left hip with moderate superior migration left femoral shaft. EKG EKG: a-fib, rate 79 compared to EKG 06/2017 at that time a-fib rate 69 with ventricular-paced complexes and st,t wave abnormality Impression Assessment and Plan SUBCAPITAL LEFT HIP FRACTURE pt with acute hip fracture s/p fall. She was given morphine in ER with moderate relief of discomfort. Type and screen was ordered in ER. CXR: no acute, cardiomegaly, negative CT head, WBC:12, H/H 14/43, GFR>60, normal co-ags, pending U/A. -npo after midnight -ortho consult, ortho notified -anesthesia consult -morphine 2mg IV Q 4hrs prn pain -zofran prn -antibiotics as per ortho -bedrest -SCDs ATRIAL FIBRILLATION Rate 79, no CP, SOB or palpitations or dizziness reported. -pt with hx pacemaker will have pacer interrogation -will hold eliquis and ASA pending probable surgery -echo -cardiology consult for pre-op clearance. cardiology notified -cardiac markers added DEMENTIA Pt appears to be at baseline currently, but mildly somnolent occurred after morphine given -continue donepezil DEPRESSION -continue zoloft HTN -continue lopressor -continue losartan HYPOTHYROIDISM -pending TSH -continue levothyroxine GERD -continue zantac DYSLIPIDEMIA lipid panel 04/2017: total: 170, HDL:81, LDL: 74, Triglycerides: 74 -continue zocor, zetia Pt had A1c 5.7 in 04/2017 per outside records DVT PROPHYLAXIS -SCDs DISPOSITION -admit tele -DNR as per discussion with pt and family -Follows with Dr Garcia for routine care Pt was seen with Dr Cummins. See addendum ATTENDING ADDENDUM: pt seen and examined, in agreement with above H&P 87 yo F sustained a fall earlier , leading to left hip fracture , baseline dementia very poor historian , does not recall having dizzy spell , lightheadedness prior to fall says she just lost her balance and fell down Xray of hip shows left subcapital femoral fracture EKG Afib rate controlled A/P : gen ; elderly female no apparent distress HEENT: NAD HT: regular S1/S2 Lungs: CTA abdomen : soft, non tender ext ; no lower ext edema neuro: no focal deficit , baseline dementia A/P : FALL LEFT HIP FRACTURE : will need ORIF of left hip has been on Eliquis for hx of Afib kept on hold given advanced age /Cardiac arrhythmia moderate to high risk for surgery ordered for ECHO , cardiac eval for pre op pt denies of any chest pain , palpitation or SOB AFIB : rate controlled cont beta eleanor hold anticoagulation Eliquis for surgery DNR/DNI please refer to H&P above for further discussion of other issues Fabiola Cummins Level of Care Telemetry Resuscitation Status DO NOT RESUSCITATE VTE Prophylaxis VTE Risk Assessment Done? Y/N: Yes Risk Level: Moderate Given or contraindicated: SCD's Social Service Consult >80 yr.& Lives Alone
[2017-08-02] MEDS: SODIUM CHLORIDE 0.9% 1000ML 1,000 ML IV SCH (18:02)
[2017-08-02 18:59] VITALS: BP 166/86; PULSE 74; TEMP 36.8; O2SAT 91
--- NOTE | 2017-08-02 20:29 | Anesthesiology Progress Note ---
Anesthesia Progress Note Date of Service Aug 02, 2017. Progress Notes Ms. Espino is a very pleasant 87 year old female who is tentatively scheduled for bipolar hip from Dr. Waggoner. Patient has NKDA. She is a very poor historian so most of this information was found on chart review. Notable outpatient medications are eliquis, although not entire sure when her last dose was (08/02/17 vs 08/01/17), will have to clarify with patient's nephew. PSH significant for CABG, cardiac cath with stents and pacemaker although patient unsure when these were done. She is oriented to person, place and time and answers questions appropriately but again does not know much about her medical history. PMH significant for CAD, HTN, A fib, pacemaker insertion, GERD, OA, hypothyroidism, depression and dementia (called mild). She was living independently prior to fall. CXR shows cardiomegaly without overt pulmonary edema. EKG HR of 79, A fib and ST and T wave abnormalities. Labs WNL and H/H of 14.2/43.2. Exam shows irregular HR, somewhat limited ROM of neck, MP 3 (2 with phonation) and edentulous. At this point, hospitalist service stated patient is moderate to high risk for surgery. Cardiology consult has been placed along with echo and these should be completed prior to taking the patient to the OR. We will have to determine exactly when her last eliquis dose was as ALIN states to do a neuraxial anesthetic (spinal), this would need to be held for a minimum of three days. If she goes to the operating room either tomorrow or Saturday, patient will likely need a GETA with +/- arterial line monitoring. She was consented for this and had all questions answered. Patient does not have children or spouse so will involve her nephew (point of contact in the chart) in decision making.
--- NOTE | 2017-08-02 20:33 | CARDIOLOGY CONSULTATION ---
DATE OF CONSULTATION: 08/02/2017 REFERRING PHYSICIAN: Dr. Fabiola Cummins. REASON FOR CONSULTATION: Preoperative risk stratification. CHIEF COMPLAINT ON ADMISSION: Fall and hip pain. HISTORY OF PRESENT ILLNESS: Ms. Espino is an 87-year-old female who suffered a mechanical fall earlier today and injured her left hip. She is found to have a left-sided hip fracture. She carries a complex cardiovascular history listed below including remote coronary artery bypass grafting and what appears to be chronic atrial fibrillation, on chronic anticoagulation. The patient denies any chest discomfort or unusual shortness of breath. No orthopnea, PND, or change in functional capacity recently. No recent hospitalizations for acute coronary syndrome, congestive heart failure, or unstable dysrhythmia. There are no prior cardiac records available for review in the [facility] or [facility] records. She apparently follows with Dr. Coley for her cardiovascular care and Dr. Garcia for primary care. Her nephew and nephew's girlfriend are present at bedside. They note intermittent confusion, particularly in the morning. The patient reports hallucinations on nearly a daily basis. She was seen in the Emergency Department approximately 2 weeks ago for these complaints. Currently, her hip pain is controlled. She offers no other complaints at this time. REVIEW OF SYSTEMS: The pertinent positives noted above, a comprehensive 10-system review is otherwise negative. PAST MEDICAL HISTORY: 1. Coronary artery disease, status post coronary artery bypass grafting. 2. Atrial fibrillation. 3. Hypothyroidism. 4. Dyslipidemia. 5. Hypertension. 6. Depression. SURGICAL HISTORY: Coronary artery bypass grafting x3 and dual-chamber pacemaker implantation, unknown date and med specialist. History otherwise is unknown, this patient is a poor historian. SOCIAL HISTORY: The patient is a lifelong nonsmoker. She is and lives alone. FAMILY HISTORY: Negative for premature CAD or sudden cardiac ; however, noncontributory given patient's age. OUTPATIENT MEDICATIONS: 1. Eliquis 2.5 mg twice daily. 2. Aspirin 81 mg daily. 3. Donepezil 5 mg daily. 4. Zetia 10 mg daily. 5. Synthroid 25 mcg daily. 6. Losartan 50 mg daily. 7. Lopressor 100 mg at night, 50 mg in the a.m. 8. Zantac 150 mg twice daily. 9. Zoloft 25 mg daily. 10. Simvastatin 40 mg daily. ALLERGIES: No known drug allergies. ECG ON ADMISSION: Atrial fibrillation with diffuse ST-T wave abnormality in the inferior and anterolateral leads, consider ischemia. Compared to most recent ECG available from 07/16/2017. ST-T wave abnormality is more pronounced. LABORATORY DATA: White blood cell count 12.10, hemoglobin is 14.2, platelet count is 191. Sodium 139, chloride 106, CO2 is 27, BUN is 15, creatinine 0.72. Cardiac enzymes are negative. Her TSH is 7.970. INR is 1.0. Urinalysis is pending. Chest x-ray on admission demonstrates dual-chamber pacemaker, no congestive heart failure. CT of the head demonstrates no acute intracranial abnormality. Pelvis x-ray demonstrates subcapital fracture of the left hip with moderate superior migration of left femoral shaft. PHYSICAL EXAMINATION: VITAL SIGNS: Temperature is 37.3 degrees centigrade, pulse 75 beats per minute and regular, respiratory rate is 12 breaths per minute, blood pressure 138/82, SAO2 is 95% on room air. GENERAL: NAD, hard of hearing, poor historian. HEENT: Mucous membranes moist. No scleral icterus. Conjunctivae pink. NECK: Supple without JVD or HJR. No carotid bruit. HEART: Irregular with normal S1 and S2. There is no murmur, rub or gallop appreciated. LUNGS: Clear without rales, rhonchi or wheeze. ABDOMEN: Soft, nontender. No rebound or guarding. EXTREMITIES: Warm and dry without clubbing, cyanosis, or edema. NEUROLOGIC: Demonstrates no focal motor deficit. FINAL IMPRESSION: 1. An 87-year-old female with a fall and left-sided hip fracture. The patient is considered at least moderate perioperative risk. 2. Atrial fibrillation which may be chronic -- the patient is asymptomatic. 3. Abnormal ECG with ST-T wave abnormality as described above. 4. Chronic coronary artery disease without evidence of acute coronary syndrome or exertional angina. 5. Hypertension -- borderline controlled. 6. Dyslipidemia. 7. Hypothyroidism with elevated TSH. 8. Fall risk. PLAN AND RECOMMENDATIONS: Resting 2D transthoracic echo will be performed in a.m. to assess LV systolic function. We will obtain records from Dr. Coley to assess ECG compared to previous studies. Pacemaker interrogation will also be requested to assess duration of atrial fibrillation. She will continue her current cardiovascular medications including beta-eleanor, aspirin, losartan, Zetia, and simvastatin. Eliquis will be placed on hold. The patient ideally should have this medication held for 48 hours prior to any surgery to reduce bleeding risk. This was discussed with the patient and her family at bedside. Further recommendations pending review of medical records and 2D transthoracic echo in a.m. Thank you for allowing me to take part in the care of your patient. HUNTER
[2017-08-02] MEDS ORDERED: METOPROLOL TARTRATE 100 MG TAB PO SCH (21:00)
[2017-08-02] MEDS: METOPROLOL SUCC 50MG EXT REL TAB PO SCH (21:35)
[2017-08-02] MEDS: RANITIDINE HCL 150 MG TAB PO SCH (21:35)
[2017-08-02] MEDS: DOCUSATE SODIUM/SENNA 50/8.6MG TAB PO SCH (21:35)
[2017-08-02] MEDS: DONEPEZIL HCL 5 MG TAB PO SCH (21:36)
[2017-08-02] MEDS: SIMVASTATIN 40 MG TAB PO SCH (21:37)
--- NOTE | 2017-08-02 22:44 | DIAGNOSTIC IMAGING REPORT ---
LEFT FEMUR 2 VIEWS CLINICAL HISTORY: Fall with left leg pain. No femoral fracture. Findings: AP and crosstable lateral portable views of the left femur are correlated with left hip radiographs performed the same day 08/02/2017. The skeletal structures are osteopenic. There is an impacted and distracted subcapital fracture of the left femur. No additional femoral fracture is seen. The distal femur is intact. The knee joint is grossly maintained. Soft tissue edema is seen overlying the left hip. The visualized left hemipelvis appears maintained. There is advanced atherosclerotic calcification of the left femoral artery. Surgical clips are noted in the distal thigh. IMPRESSION: 1. There is an impacted and distracted subcapital fracture of the left femur, not significantly changed from today's earlier examination. 2. No distal femoral fracture is seen. Electronically signed by: Timothy Estrella M.D. 08/02/2017 10:43 PM Dictated Date/Time: 08/02/2017 10:40 PM
[2017-08-02 23:00] VITALS: BP 174/100; PULSE 89; TEMP 37.2; O2SAT 92
[2017-08-02] MEDS: MoRPHine SULFATE 2 MG/ML CARP IV PRN (23:28)
[2017-08-03] VITALS (10 sets, daily range): BP systolic 104–160; BP diastolic 56–89; PULSE 8–101; TEMP 36.4–36.9; O2SAT 92–97
[2017-08-03] MEDS ORDERED: CEFAZOLIN IV 2,000 MG in DEXTROSE 5% 50ML 50 ML IV SCH (06:00)
[2017-08-03] MEDS ORDERED: CEFAZOLIN 2000MG IV PUSH 10 ML IV SCH (06:00)
[2017-08-03] MEDS: LEVOTHYROXINE 25 MCG TAB PO SCH (06:16)
[2017-08-03 06:21] LABS: HEMATOCRIT 37.6 % (37-47); MEAN CELL VOLUME 91.9 fL (80-100); MEAN CORPUSCULAR HEMOGLOBIN 30.1 pg (25-34); MEAN CORPUSCULAR HGB CONC 32.7 g/dl (32-36); PLATELET COUNT 144 K/uL (130-400); RED BLOOD COUNT 4.09 M/uL (4.2-5.4); WHITE BLOOD COUNT 8.88 K/uL (4.8-10.8)
[2017-08-03 06:54] LABS: BUN/CREATININE RATIO 26.8 (10-20); CALCIUM 8.2 mg/dl (8.5-10.1); CREATININE 0.53 mg/dl (0.60-1.20); POTASSIUM 4.1 mmol/L (3.5-5.1)
[2017-08-03] MEDS: SODIUM CHLORIDE 0.9% 1000ML 1,000 ML IV SCH (07:36)
--- NOTE | 2017-08-03 08:41 | Progress Note ---
Medicine Progress Note Date & Time of Visit: Aug 03, 2017 at 08:29. Subjective seen sitting up in bed, comfortable oriented x 2, somewhat confused, but pleasant states she feels fine overall denies hip pain denies chest pain,dyspnea, palpitations no other symptoms Objective Last 8 Hrs Date Time Temp Pulse Resp B/P (MAP) Pulse Ox O2 Delivery O2 Flow Rate FiO2 08/03/17 04:02 Room Air 08/03/17 03:45 36.6 63 18 157/82 (107) 92 Room Air Physical Exam: General- oriented x2, not in distress Head- atraumatic Eyes- PERRL, EOMI, anicteric ENT- (+) hard of hearing, oropharynx clear Neck- supple, no JVD, no adenopathy, no thyromegaly; carotids +2/2, no bruits appreciated Lungs- clear to auscultation bilaterally Heart- normal rate, irregularly irregular rhythm; no murmurs Abdomen- normal bowel sounds, soft, nontender Extremities- no pretibial edema, no calf tenderness; peripheral pulses intact Neuro- alert, oriented x 2; PERRL, EOMI; no facial palsy; no dysarthria; motor 5 /5 bilaterally; sensation 100% Skin- warm & dry Laboratory Results: Last 24 Hours Test 08/02/17 13:05 08/02/17 16:20 08/03/17 05:37 White Blood Count 12.10 K/uL 8.88 K/uL Red Blood Count 4.70 M/uL 4.09 M/uL Hemoglobin 14.2 g/dL 12.3 g/dL Hematocrit 43.2 % 37.6 % Mean Corpuscular Volume 91.9 fL 91.9 fL Mean Corpuscular Hemoglobin 30.2 pg 30.1 pg Mean Corpuscular Hemoglobin Concent 32.9 g/dl 32.7 g/dl Platelet Count 191 K/uL 144 K/uL Mean Platelet Volume 12.1 fL 12.0 fL Neutrophils (%) (Auto) 87.3 % Lymphocytes (%) (Auto) 6.0 % Monocytes (%) (Auto) 5.8 % Eosinophils (%) (Auto) 0.3 % Basophils (%) (Auto) 0.2 % Neutrophils # (Auto) 10.56 K/uL Lymphocytes # (Auto) 0.73 K/uL Monocytes # (Auto) 0.70 K/uL Eosinophils # (Auto) 0.04 K/uL Basophils # (Auto) 0.02 K/uL RDW Standard Deviation 50.9 fL 50.0 fL RDW Coefficient of Variation 15.0 % 14.7 % Immature Granulocyte % (Auto) 0.4 % Immature Granulocyte # (Auto) 0.05 K/uL Prothrombin Time 10.8 SECONDS Prothromb Time International Ratio 1.0 Activated Partial Thromboplast Time 25.8 SECONDS Partial Thromboplastin Ratio 1.0 Sodium Level 139 mmol/L 139 mmol/L Potassium Level 4.5 mmol/L 4.1 mmol/L Chloride Level 106 mmol/L 106 mmol/L Carbon Dioxide Level 27 mmol/L 26 mmol/L Anion Gap 6.0 mmol/L 6.0 mmol/L Blood Urea Nitrogen 15 mg/dl 14 mg/dl Creatinine 0.72 mg/dl 0.53 mg/dl Estimated GFR () 88.5 100.3 Estimated GFR (Non- 76.4 86.6 BUN/Creatinine Ratio 20.9 26.8 Random Glucose 125 mg/dl 114 mg/dl Calcium Level 9.2 mg/dl 8.2 mg/dl Total Creatine Kinase 108 U/L Creatine Kinase MB 2.8 ng/ml Creatine Kinase MB Ratio 2.6 Troponin I < 0.015 ng/ml Thyroid Stimulating Hormone (TSH) 7.970 uIu/ml Urine Color YELLOW Urine Appearance CLEAR Urine pH 7.0 Urine Specific [place] 1.021 Urine Protein NEG Urine Glucose (UA) NEG Urine Ketones NEG Urine Occult Blood NEG Urine Nitrite NEG Urine Bilirubin NEG Urine Urobilinogen NEG Urine Leukocyte Esterase NEG Est Creatinine Clear Calc Drug Dose 55.5 ml/min Free Thyroxine 1.24 ng/dl Date/Time Source Procedure Growth Status 08/02/17 18:06 Nasal MRSA DNA Surveillance Screen - Final Specimen Negative for MRSA by DNA Probe Complete Assessment & Plan 87 year old female with history of CAD, CABG/Stent, s/p PM, A fib on Eliquis, HTN, Dementia and other problems noted below presented with fall and hip pain. SUBCAPITAL LEFT HIP FRACTURE S/P MECHANICAL FALL - pain under good control hemodynamically stable, denies cardiac symptoms - Ortho consulted, awaiting recommendations Cardiology consulted, echo and Pacemaker interrogation pending, at least moderate risk for cardiac surgery HISTORY OF CAD/CABG/STENT PLACEMENT ATRIAL FIBRILLATION ON ELIQUIS S/P PACEMAKER - denies cardiac symptoms A fib , rate controlled - Cardiology on board - Echo and PM interrogation pending - Eliquis and ASA on hold on Losartan, Metoprolol, Simvastatin DEMENTIA Pt appears to be at baseline currently -continue donepezil DEPRESSION -continue zoloft HTN -continue lopressor -continue losartan HYPOTHYROIDISM - TSH 7, free T4 normal subclinical hypothyroidism - continue Lthyroxine GERD -continue zantac DYSLIPIDEMIA lipid panel 04/2017: total: 170, HDL:81, LDL: 74, Triglycerides: 74 -continue zocor, zetia Pt had A1c 5.7 in 04/2017 per outside records DVT PROPHYLAXIS - will need Heparijn subcutaneous DISPOSITION anticipate d/c to Rehab/SNF when medically stable Ortho ff up Cardio ff up follows with Dr. Garcia Current Inpatient Medications: Current Inpatient Medications Medications (Trade) Dose Ordered Sig/Jyothi Route Start Time Stop Time Status Last Admin Dose Admin Ondansetron HCl (Zofran Inj) 4 mg Q6H PRN IV 08/02/17 15:30 09/01/17 15:29 Morphine Sulfate (MoRPHine SULFATE INJ) 2 mg Q4 PRN IV 08/02/17 15:45 08/16/17 15:44 08/02/17 23:28 2 MG Naloxone HCl (Narcan Inj) 0.1 mg PRN PRN IV 08/02/17 15:45 09/01/17 15:44 Senna/Docusate Sodium (Senokot S Tab) 2 tab HS PO 08/02/17 21:00 09/01/17 20:59 08/02/17 21:35 2 TAB Polyethylene (Miralax Powder Packet) 17 gm DAILY PRN PO 08/02/17 15:45 09/01/17 15:44 Magnesium Hydroxide (Milk Of Magnesia Susp) 30 ml DAILY PRN PO 08/02/17 15:45 09/01/17 15:44 Bisacodyl (Dulcolax Supp) 10 mg DAILY PRN [place] 08/02/17 15:45 09/01/17 15:44 Sodium Biphosphate/ Sodium Phosphate (Fleet Enema) 132 ml PRN PRN [place] 08/02/17 15:45 Miscellaneous (Iv Fluids Completed) 1 ea PRN PRN N/A 08/02/17 16:00 08/02/18 15:59 Donepezil HCl (Aricept Tab) 5 mg HS PO 08/02/17 21:00 09/01/17 20:59 08/02/17 21:36 5 MG EZETIMIBE (Zetia Tab) 10 mg DAILY PO 08/03/17 09:00 09/02/17 08:59 Levothyroxine Sodium (Synthroid Tab) 25 mcg DAILYBB PO 08/03/17 06:00 09/02/17 06:59 08/03/17 06:16 25 MCG Losartan Potassium (coZAAR TAB) 50 mg DAILY PO 08/03/17 09:00 09/02/17 08:59 Ranitidine HCl (zANTac TAB) 150 mg BID PO 08/02/17 21:00 09/01/17 20:59 08/02/17 21:35 150 MG Simvastatin (Zocor Tab) 40 mg QPM PO 08/02/17 21:00 09/01/17 20:59 08/02/17 21:37 40 MG Sertraline HCl (Zoloft Tab) 25 mg DAILY PO 08/03/17 09:00 09/02/17 08:59 Metoprolol Succinate (Toprol Xl Tab) 100 mg HS PO 08/02/17 21:00 09/01/17 20:59 08/02/17 21:35 100 MG Sodium Chloride 1,000 ml @ 75 mls/hr [id number] IV 08/02/17 18:00 09/01/17 17:59 08/03/17 07:36 75 MLS/HR Cefazolin Sodium 10 ml @ 2.5 mls/min PREOP IV 08/03/17 06:00 08/03/17 18:00
[2017-08-03] MEDS: SERTRALINE HCL 50 MG TAB PO SCH (08:48)
[2017-08-03] MEDS: RANITIDINE HCL 150 MG TAB PO SCH ×3 (08:48→20:51)
[2017-08-03] MEDS: EZETIMIBE 10MG TAB PO SCH (08:49)
[2017-08-03] MEDS: LOSARTAN POTASSIUM 50 MG TAB PO SCH (08:50)
--- NOTE | 2017-08-03 09:45 | ECHOCARDIOGRAM REPORT ---
*NOTICE TO RECEIVING [employer] This information is strictly Confidential and protected under [place] law. [place] law prohibits you from making any further disclosure of this information unless further disclosure is expressly permitted by the written consent of the person to whom it pertains or is authorized by law. A general authorization for the release of medical or other information is not sufficient for this purpose. Hospital accepts no responsibility if the information is made available to any other person, INCLUDING THE PATIENT. Interpretation Summary * Name: MANE FELICIANO Study Date: 08/03/2017 06:25 AM BP: 157/82 mmHg * Patient Location: C.2E\S\E203\S\1 HR: 63 * : 1930 (M/d/yyyy) Gender: Female Height: 57 in * Age: 87 yrs Ethnicity: [place] Weight: 111 lb * Ordering Physician: Kal Sexton * Referring Physician: Self, Referred * Performed By: Jerri Cardozo RDCS * * Reason For Study: AFIB * BSA: 1.4 m2 * -- Conclusions -- * The left ventricular cavity is small. * There is severe concentric left ventricular hypertrophy. * Left ventricular systolic function is normal. * The left ventricular wall motion is normal. * Ejection Fraction = 65-70%. * Diastolic dysfunction, Grade III (restrictive pattern), consistent with markedly increased left atrial pressure. * The left atrium is severely dilated. * There is mild mitral regurgitation. * There is moderate tricuspid regurgitation. * Right ventricular systolic pressure is elevated at 40-50mmHg. * There is a pacemaker lead in the right ventricle. Procedure Details * A complete two-dimensional transthoracic echocardiogram was performed (2D, M-mode, Doppler and color flow Doppler). Left Ventricle * The left ventricular cavity is small. * There is severe concentric left ventricular hypertrophy. * Left ventricular systolic function is normal. * Ejection Fraction = 65-70%. * The left ventricular wall motion is normal. Right Ventricle * The right ventricle is normal in size and function. * There is a pacemaker lead in the right ventricle. Atria * The left atrium is severely dilated. * Right atrial size is normal. * No ASD detected; PFO is not assessed. Mitral Valve * The mitral valve anatomy is normal. * There is no mitral valve stenosis. * There is mild mitral regurgitation. Tricuspid Valve * The tricuspid valve anatomy is normal. * There is no tricuspid stenosis. * There is moderate tricuspid regurgitation. * Right ventricular systolic pressure is elevated at 40-50mmHg. Aortic Valve * The aortic valve is trileaflet. * Aortic valve sclerosis moderate, without significant aortic valvular stenosis. * No aortic regurgitation is present. Pulmonic Valve * The pulmonic valve is not well visualized. Great Vessels * The aortic root is normal size. Pericardium/Pleural * There is no pericardial effusion. Great Vessels * Normal inferior vena cava diameter and respiratory variation suggests normal central venous pressure. Left Ventricular Diastolic Function * Diastolic dysfunction, Grade III (restrictive pattern), consistent with markedly increased left atrial pressure. MMode 2D Measurements and Calculations IVSd 1.4 cm IVSs 1.8 cm LVIDd 3.7 cm LVIDs 2.4 cm LVPWd 1.6 cm LVPWs 2.1 cm IVS/LVPW 0.87 FS 34.9 % EDV(Teich) 57.6 ml ESV(Teich) 20.1 ml EF(Teich) 65.0 % EDV(cubed) 50.1 ml ESV(cubed) 13.8 ml EF(cubed) 72.4 % % IVS thick 33.1 % % LVPW thick 34.8 % LV mass(C)d 198.7 grams LV mass(C)dI 141.9 grams/m\S\2 LV mass(C)s 198.1 grams LV mass(C)sI 141.5 grams/m\S\2 SV(Teich) 37.4 ml SI(Teich) 26.7 ml/m\S\2 SV(cubed) 36.3 ml SI(cubed) 25.9 ml/m\S\2 Ao root diam 2.8 cm Ao root area 6.1 cm\S\2 LVOT diam 1.9 cm LVOT area 2.7 cm\S\2 LVAd ap4 20.3 cm\S\2 LVLd ap4 6.7 cm EDV(MOD-sp4) 53.3 ml EDV(sp4-el) 52.3 ml LVAs ap4 11.9 cm\S\2 LVLs ap4 6.1 cm ESV(MOD-sp4) 24.5 ml ESV(sp4-el) 20.0 ml EF(MOD-sp4) 54.0 % EF(sp4-el) 61.8 % LVAd ap2 20.3 cm\S\2 LVLd ap2 6.9 cm EDV(MOD-sp2) 53.1 ml EDV(sp2-el) 50.5 ml LVAs ap2 11.1 cm\S\2 LVLs ap2 5.9 cm ESV(MOD-sp2) 20.8 ml ESV(sp2-el) 17.7 ml EF(MOD-sp2) 60.8 % EF(sp2-el) 65.0 % LVLd %diff 3.1 % EDV(MOD-bp) 52.9 ml LVLs %diff -3.15 % ESV(MOD-bp) 23.0 ml EF(MOD-bp) 56.6 % SV(MOD-sp4) 28.8 ml SI(MOD-sp4) 20.5 ml/m\S\2 SV(MOD-sp2) 32.3 ml SI(MOD-sp2) 23.0 ml/m\S\2 SV(MOD-bp) 30.0 ml SI(MOD-bp) 21.4 ml/m\S\2 SV(sp4-el) 32.3 ml SI(sp4-el) 23.1 ml/m\S\2 SV(sp2-el) 32.9 ml SI(sp2-el) 23.5 ml/m\S\2 Doppler Measurements and Calculations MV E max ruthie 133.3 cm/sec MV dec time 0.21 sec Ao V2 max 119.7 cm/sec Ao max PG 5.7 mmHg Ao max PG (full) 3.6 mmHg TOSHIA(V,A) 1.6 cm\S\2 TOSHIA(V,D) 1.6 cm\S\2 LV V1 max PG 2.1 mmHg LV V1 max 72.5 cm/sec TR max ruthie 331.7 cm/sec
--- NOTE | 2017-08-03 09:57 | Orthopedic Consultation ---
Orthopedic Consultation Date of Consultation: Aug 03, 2017. Attending Physician: Matt Parker MD History of Present Illness The patient is an 87-year-old female who presented to [facility] [place] after a fall sustained on 08/02/2017 with complaints of inability to walk with complaints of left hip pain. She was found to have a left hip fracture and subsequently admitted for surgical intervention and medical management. The patient denies losing consciousness however she is a poor historian. She denies any pain in her upper extremities or right lower extremity. She denies any numbness or tingling in her left lower extremity. Past Medical/Surgical History Medical Problems: (1) Hallucination Status: Acute Family History FH: CAD (coronary artery disease) BROTHER ([place] age 37) FH: cancer SISTER (cervical [place]) Stroke FATHER Social History Smoking Status: Never Smoker Smokeless Tobacco Use: No Alcohol Use: none Drug Use: none Marital Status: Occupation Status: retired Allergies Coded Allergies: No Known Allergies (Unverified , 08/02/17) Home Medications Scheduled Apixaban (Eliquis), 1 TAB PO BID Aspirin (Aspirin Ec), 81 MG PO DAILY Cholecalciferol (Vitamin D3), 1,000 INTER.UNIT PO DAILY Donepezil HCl (Donepezil HCl), 5 MG PO HS Ezetimibe (Zetia), 10 MG PO DAILY Levothyroxine Sodium (Levothyroxine Sodium), 25 MCG PO QAM Losartan Potassium (Losartan Potassium), 50 MG PO DAILY Metoprolol Tartrate (Lopressor) (Lopressor), 100 MG PO HS Ranitidine (Zantac), 150 MG PO BID Sertraline HCl (Sertraline HCl), 25 MG PO DAILY Simvastatin (Zocor), 40 MG PO QPM Current Inpatient Medications Current Inpatient Medications Medications (Trade) Dose Ordered Sig/Jyothi Route Start Time Stop Time Status Last Admin Dose Admin Ondansetron HCl (Zofran Inj) 4 mg Q6H PRN IV 08/02/17 15:30 09/01/17 15:29 Morphine Sulfate (MoRPHine SULFATE INJ) 2 mg Q4 PRN IV 08/02/17 15:45 08/16/17 15:44 08/02/17 23:28 2 MG Naloxone HCl (Narcan Inj) 0.1 mg PRN PRN IV 08/02/17 15:45 09/01/17 15:44 Senna/Docusate Sodium (Senokot S Tab) 2 tab HS PO 08/02/17 21:00 09/01/17 20:59 08/02/17 21:35 2 TAB Polyethylene (Miralax Powder Packet) 17 gm DAILY PRN PO 08/02/17 15:45 09/01/17 15:44 Magnesium Hydroxide (Milk Of Magnesia Susp) 30 ml DAILY PRN PO 08/02/17 15:45 09/01/17 15:44 Bisacodyl (Dulcolax Supp) 10 mg DAILY PRN [place] 08/02/17 15:45 09/01/17 15:44 Sodium Biphosphate/ Sodium Phosphate (Fleet Enema) 132 ml PRN PRN [place] 08/02/17 15:45 Miscellaneous (Iv Fluids Completed) 1 ea PRN PRN N/A 08/02/17 16:00 08/02/18 15:59 Donepezil HCl (Aricept Tab) 5 mg HS PO 08/02/17 21:00 09/01/17 20:59 08/02/17 21:36 5 MG EZETIMIBE (Zetia Tab) 10 mg DAILY PO 08/03/17 09:00 09/02/17 08:59 08/03/17 08:49 10 MG Levothyroxine Sodium (Synthroid Tab) 25 mcg DAILYBB PO 08/03/17 06:00 09/02/17 06:59 08/03/17 06:16 25 MCG Losartan Potassium (coZAAR TAB) 50 mg DAILY PO 08/03/17 09:00 09/02/17 08:59 08/03/17 08:50 50 MG Ranitidine HCl (zANTac TAB) 150 mg BID PO 08/02/17 21:00 09/01/17 20:59 08/03/17 08:48 150 MG Simvastatin (Zocor Tab) 40 mg QPM PO 08/02/17 21:00 09/01/17 20:59 08/02/17 21:37 40 MG Sertraline HCl (Zoloft Tab) 25 mg DAILY PO 08/03/17 09:00 09/02/17 08:59 08/03/17 08:48 25 MG Metoprolol Succinate (Toprol Xl Tab) 100 mg HS PO 08/02/17 21:00 09/01/17 20:59 08/02/17 21:35 100 MG Sodium Chloride 1,000 ml @ 60 mls/hr [id number] IV 08/02/17 18:00 09/01/17 17:59 08/03/17 07:36 75 MLS/HR Cefazolin Sodium 10 ml @ 2.5 mls/min PREOP IV 08/03/17 06:00 08/03/17 18:00 Review of Systems ROS negative exception for those mentioned in HPI above. Physical Exam Date Time Temp Pulse Resp B/P (MAP) Pulse Ox O2 Delivery O2 Flow Rate FiO2 08/03/17 08:00 94 Nasal Cannula 2.0 08/03/17 08:00 36.9 77 14 160/80 (106) 94 Nasal Cannula 2.0 08/03/17 04:02 Room Air 08/03/17 03:45 36.6 63 18 157/82 (107) 92 Room Air 08/03/17 00:02 Room Air 08/03/17 00:01 149/89 (109) 08/02/17 23:00 37.2 89 16 174/100 (124) 92 Room Air 08/02/17 20:00 Room Air 08/02/17 18:59 36.8 74 18 166/86 (112) 91 Room Air 08/02/17 17:11 36.5 82 18 171/98 94 Room Air 08/02/17 15:22 75 12 138/82 95 Room Air 08/02/17 14:12 81 16 174/101 97 Nasal Cannula 2.0 08/02/17 13:29 Nasal Cannula 2.0 08/02/17 13:01 74 08/02/17 12:38 37.3 76 18 168/93 93 Room Air NAD AO to person/place B/L UE NVSI +M/R/U/AIN/PIN SILT grossly, +2 radial pulse, compartments soft, full painless ROM shoulder, elbow, wrist, fingers. RLE NVSI +EHL/FHL/TA/GS SILT grossly, CR< 2 seconds, +2 DP Pulse, compartments soft NT, full painless ROM hip, knee, ankle LLE NVSI +EHL/FHL/TA/GS SILT grossly, CR< 2 seconds, +2 DP Pulse, compartments soft NT, no tenderness to palpation to knee or ankle, +log roll, ROM deferred secondary to fracture, skin intact over left hip. Laboratory Results Last 24 Hours Test 08/02/17 13:05 08/02/17 16:20 08/03/17 05:37 White Blood Count 12.10 K/uL 8.88 K/uL Red Blood Count 4.70 M/uL 4.09 M/uL Hemoglobin 14.2 g/dL 12.3 g/dL Hematocrit 43.2 % 37.6 % Mean Corpuscular Volume 91.9 fL 91.9 fL Mean Corpuscular Hemoglobin 30.2 pg 30.1 pg Mean Corpuscular Hemoglobin Concent 32.9 g/dl 32.7 g/dl Platelet Count 191 K/uL 144 K/uL Mean Platelet Volume 12.1 fL 12.0 fL Neutrophils (%) (Auto) 87.3 % Lymphocytes (%) (Auto) 6.0 % Monocytes (%) (Auto) 5.8 % Eosinophils (%) (Auto) 0.3 % Basophils (%) (Auto) 0.2 % Neutrophils # (Auto) 10.56 K/uL Lymphocytes # (Auto) 0.73 K/uL Monocytes # (Auto) 0.70 K/uL Eosinophils # (Auto) 0.04 K/uL Basophils # (Auto) 0.02 K/uL RDW Standard Deviation 50.9 fL 50.0 fL RDW Coefficient of Variation 15.0 % 14.7 % Immature Granulocyte % (Auto) 0.4 % Immature Granulocyte # (Auto) 0.05 K/uL Prothrombin Time 10.8 SECONDS Prothromb Time International Ratio 1.0 Activated Partial Thromboplast Time 25.8 SECONDS Partial Thromboplastin Ratio 1.0 Sodium Level 139 mmol/L 139 mmol/L Potassium Level 4.5 mmol/L 4.1 mmol/L Chloride Level 106 mmol/L 106 mmol/L Carbon Dioxide Level 27 mmol/L 26 mmol/L Anion Gap 6.0 mmol/L 6.0 mmol/L Blood Urea Nitrogen 15 mg/dl 14 mg/dl Creatinine 0.72 mg/dl 0.53 mg/dl Estimated GFR () 88.5 100.3 Estimated GFR (Non- 76.4 86.6 BUN/Creatinine Ratio 20.9 26.8 Random Glucose 125 mg/dl 114 mg/dl Calcium Level 9.2 mg/dl 8.2 mg/dl Total Creatine Kinase 108 U/L Creatine Kinase MB 2.8 ng/ml Creatine Kinase MB Ratio 2.6 Troponin I < 0.015 ng/ml Thyroid Stimulating Hormone (TSH) 7.970 uIu/ml Urine Color YELLOW Urine Appearance CLEAR Urine pH 7.0 Urine Specific [place] 1.021 Urine Protein NEG Urine Glucose (UA) NEG Urine Ketones NEG Urine Occult Blood NEG Urine Nitrite NEG Urine Bilirubin NEG Urine Urobilinogen NEG Urine Leukocyte Esterase NEG Est Creatinine Clear Calc Drug Dose 55.5 ml/min Free Thyroxine 1.24 ng/dl Assessment & Plan 87 yo Female with displaced left femoral neck fracture -Will plan for left hip hemiarthroplasty as soon as patient medically optimized/ cleared by medicine/cardiology, patient seen this morning after echocardiogram, currently not NPO, actively eating breakfast. -Cardiac recs appreciated, echo/pacemaker interrogation/clearance pending, per recs, would hold Eliquis 48 hours prior to surgery -NPO after midnight tonight, patient on schedule for 7am 08/04/17. 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 -Consent obtained from WILL Espino Sr, he can be reached at his sons number Henri Espino Jr ([phone]).
--- NOTE | 2017-08-03 10:55 | PROGRESS NOTE ---
DATE: 08/03/2017 The patient seen and examined. Chart, medications, telemetry reviewed. SUBJECTIVE: The patient is confused but notes no complaints this morning. Notes no chest discomfort. Notes no dizziness or lightheadedness. Denies any chest pains or chest discomfort. OBJECTIVE: VITAL SIGNS: Heart rate is 77, blood pressure is 160/80. Telemetry reveals atrial fibrillation with controlled ventricular response rate, intermittent ventricular pacing on exam. NECK: Thin. There is no jugular venous distention. LUNGS: Clear to auscultation. CARDIOVASCULAR: Irregular, irregular with a grade 1-2/6 systolic murmur at the apex. There is no diastolic murmur. PMI is nondisplaced. ABDOMEN: Soft, nondistended. EXTREMITIES: Without cyanosis or clubbing. There is no significant edema. LABORATORY DATA: White cell count 8.8, hemoglobin is 12.3. Sodium is 139, potassium is 4.1, chloride is 106, bicarbonate is 26, BUN is 14, creatinine 0.53. TSH is 7.9. Echocardiogram on my review, this morning reveals moderate to severe left ventricular hypertrophy with small left ventricular cavity size, ejection fraction 65-70% without wall motion abnormalities, severe left atrial dilatation, mild mitral and moderate tricuspid insufficiency and indirect evidence of mild pulmonary hypertension. EKG reveals atrial fibrillation, rate of 82. Intermittent ventricular pacing. ST and T-wave abnormality consistent with left ventricular hypertrophy. IMPRESSION: An 87-year-old female, poor historian with underlying mild dementia who suffered a mechanical fall and hip fracture is anticipating a hip repair. Overall operative risk elevated due to patient's morbidities though no cardiac contraindications for proceeding with surgery. No signs of heart failure, angina or myocardial infarction. LV systolic function is preserved. Pacemaker function is appropriate. Recommend continuing usual medications perioperatively, consider treating underlying hypothyroidism. During her hospital stays patient has been on Eliquis and Eliquis has been held, anticoagulation should not be an issue at this point in time for surgical intervention. We would resume Eliquis postoperatively but noting Eliquis with resultant immediate anticoagulation when began may consider holding 6-24 hours postoperatively before resuming. We will follow patient in the hospital. [facility] CENTERMassiel
[2017-08-03] MEDS: MoRPHine SULFATE 2 MG/ML CARP IV PRN ×2 (11:43→16:01)
[2017-08-03] MEDS ORDERED: HALOPERIDOL LACTATE 5 MG/ML 1 ML VIAL IM STA (11:55)
[2017-08-03] MEDS ORDERED: ACETAMINOPHEN IV 100 ML IV PRN (16:30)
[2017-08-03] MEDS: DONEPEZIL HCL 5 MG TAB PO SCH ×2 (20:36→20:51)
[2017-08-03] MEDS: SIMVASTATIN 40 MG TAB PO SCH ×2 (20:37→20:52)
[2017-08-03] MEDS: METOPROLOL SUCC 50MG EXT REL TAB PO SCH ×2 (20:37→20:51)
[2017-08-03] MEDS: DOCUSATE SODIUM/SENNA 50/8.6MG TAB PO SCH ×2 (20:38→20:51)
[2017-08-03] MEDS ORDERED: OLANZAPINE 10 MG/2.1 ML SDV IM STA (20:49)
[2017-08-04] VITALS (23 sets, daily range): BP systolic 94–184; BP diastolic 55–96; PULSE 94–107; TEMP 36.5–36.8; O2SAT 91–100
[2017-08-04] MEDS: SODIUM CHLORIDE 0.9% 1000ML 1,000 ML IV SCH ×3 (01:57→23:43)
[2017-08-04] MEDS: LEVOTHYROXINE 25 MCG TAB PO SCH (04:39)
[2017-08-04] MEDS: MoRPHine SULFATE 2 MG/ML CARP IV PRN ×2 (04:40→21:01)
[2017-08-04] MEDS ORDERED: ROPIVACAINE 5MG/ML 30 ML 150 MG, BUPIVACAINE 0.5% MPF INJ 30 ML, EpINEphrine HCL INJ 0.... INFIL SCH ×8 (06:00)
[2017-08-04] MEDS ORDERED: SODIUM CHLORIDE 0.9% 1000ML 1,000 ML IV PRN (06:44)
[2017-08-04] MEDS ORDERED: FENTANYL CITRATE INJ 50 MCG/1 ML 2 ML VIAL IV PRN (06:45)
[2017-08-04] MEDS ORDERED: EpHEDrine SULFATE INJ 50 MG/ML AMP IV PRN (06:45)
[2017-08-04] MEDS ORDERED: PHENYLEPHRINE 100MCG/ML 5ML SYR IV PRN (06:45)
[2017-08-04] MEDS ORDERED: HYDROmorphone INJ 1 MG/ML SYR IV PRN (06:45)
[2017-08-04] MEDS ORDERED: ONDANSETRON INJ 2 MG/ML 2 ML VIAL IV PRN ×2 (06:45→10:00)
[2017-08-04] MEDS ORDERED: ATROPINE SULFATE 0.1 MG/ML 5ML SYR IV PRN (06:45)
[2017-08-04] MEDS ORDERED: LABETALOL HCL IV 5 MG/ML 20ML IV PRN (06:45)
[2017-08-04] MEDS ORDERED: FENTANYL CITRATE INJ 50 MCG/1 ML 2 ML VIAL ONE (06:47)
[2017-08-04] MEDS ORDERED: MIDAZOLAM HCL 1 MG/ML 2ML VIAL ONE (06:47)
[2017-08-04] MEDS ORDERED: BACITRACIN 50000 UNIT VIAL ONE (07:22)
--- NOTE | 2017-08-04 07:40 | History & Physical Bridge Note ---
H&P Re-Evaluation Bridge Note: I have examined the patient, reviewed the History & Physical and in the interval since the performance of the History & Physical I have noted the following changes of clinical significance: No changes noted
[2017-08-04] MEDS ORDERED: GLYCOPYRROLATE INJ 0.2 MG/ML VIAL ONE (08:32)
[2017-08-04] MEDS ORDERED: ONDANSETRON INJ 2 MG/ML 2 ML VIAL ONE (08:32)
[2017-08-04] MEDS ORDERED: PROPOFOL IV EMULSION 10 MG/ML 20 ML VIAL IV ONE (08:32)
[2017-08-04] MEDS ORDERED: NEOSTIGMINE METHYLSULFATE 5 MG/5 ML SYR ONE (08:32)
[2017-08-04] MEDS ORDERED: LIDOCAINE HCL 2% 2 ML VIAL (20MG/ML) ONE (08:32)
[2017-08-04] MEDS ORDERED: DEXAMETHASONE SOD INJ 4 MG/ML VIAL ONE (08:32)
[2017-08-04] MEDS ORDERED: CEFAZOLIN SOD 1 GM VIAL ONE (08:33)
[2017-08-04] MEDS ORDERED: PHENYLEPHRINE 100MCG/ML 5ML SYR ONE (08:33)
[2017-08-04] MEDS ORDERED: ESMOLOL HCL 10 MG/ML 10 ML VIAL ONE (08:33)
[2017-08-04] MEDS ORDERED: METOPROLOL TARTRATE 1 MG/ML VIAL ONE (08:33)
[2017-08-04] MEDS ORDERED: ROCURONIUM BROMIDE 10 MG/ML 5 ML VIAL IV ONE (08:33)
[2017-08-04] MEDS ORDERED: OXYCODONE HCL IR 5 MG TAB (IMMEDIATE RELEASE) PO PRN (10:00)
[2017-08-04] MEDS ORDERED: ACETAMINOPHEN 325 MG TAB PO PRN (10:00)
[2017-08-04] MEDS ORDERED: COUGH DROP (SUGAR FREE) LOZ 24 LOZ/1 BOX PO PRN (10:00)
[2017-08-04] MEDS ORDERED: CEFAZOLIN IV 1,000 MG in DEXTROSE 5% 50ML 50 ML IV SCH (10:00)
--- NOTE | 2017-08-04 10:15 | [facility] Operative Report ---
Operative Report Operative Date Aug 04, 2017. Pre-Operative Diagnosis Subcapital Left Hip Fracture Post-Operative Diagnosis Subcapital Left Hip Fracture Procedure(s) Performed Left Bipolar Hip Prosthesis Surgeon Edilson Oceanographic Meteorologist Surgeon(s) Samir Nelson PA-C Estimated Blood Loss 75CC Findings see dictated op note Specimens A: Left Femoral Head Drains none Anesthesia general Complication(s) None Disposition Recovery Room / PACU Indications 87 yo Female with displaced left femoral neck fracture sustained after a fall. The patient was medically stabilized on 08/04/17. I indicated the patient for left hip hemiarthroplasty. The WILL Henri Espino was informed of the risks and benefits of surgery, which included but not limited to infection, bleeding, blood clots, damage to nerves, vessels, bone and soft tissue, dislocation, leg length discrepancy, need for additional surgery and . The patients family collectively chose to move forward with surgical intervention and informed consent was obtained. Description of Procedure Following induction of adequate anesthesia, the patient was transferred to the OR table and placed in the lateral decubitus position with right hip down. The left hip was prepped and draped in usual sterile manner. A posterior incision was made. Subcutaneous tissue was sharply dissected. Electro cautery was used for hemostasis. Fascia was incised throughout the length of the wound and the piriformis was identified. The short external rotators were divided from the posterior aspect of the femur and a capsulotomy was performed. Tagging sutures were placed in the pirimformis and capsule utilizing Vicryl. Next our attention was turned towards the femoral neck fracture. The fracture was relatively high on the calcar and decision was made to proceed with the oscillating saw and create the calcar osteotomy. This bone fragment was removed. Following this, tenaculum and cob elevater was utilized to remove the femoral head. This was measured on the back table and the 42mm femoral head was chosen as the size to be used. Attention was turned to the acetabulum which was found to have no significant arthritis. All bony debris was removed. A sponge was placed in the acetabulum. Attention was then turned to the proximal femur where box osteotome was used to gain access to the femoral canal. A canal finder and power lateralizing reamer were utilized to further open. Sequential raspings were taken up to a size 12, which was sunk completely and trial reduction was carried out and a +0 x 22 mm femoral head was chosen the size to be used with the 42 bipolar cup. Following a trial reduction, the hip was found to be stable to 45 degrees of internal rotation and 90 degrees of flexion with equal leg lengths. The calcar reamer was utilized to smooth the calcar and the instruments and trial components were removed. The hip was thoroughly irrigated with pulsatile irrigation. The canal was irrigated and dried, cement restrictor was placed and [place] cement was mixed. The 12 low demand fracture stem was placed with a 10 mm centralizer and this was held in position well. All excess cement was removed and cement hardened. Following this, another trial reduction was carried out and again a +0 neck size was chosen as the size to be used. The final head and neck were impacted into position and the hip was reduced and was found to be stable to 45 degrees of internal rotation and 90 degrees of flexion. The wound was again irrigated. The [facility] joint mix was injected throughout the hip and the capsule was repaired using 5 fiberwire sutures through drill holes. Following this, the short external rotators were reapproximated to the posterior aspect of the femur also through drill holes and these were tied. Once again the wound was copiously irrigated with sterile saline solution. Fascia was closed using #1 Vicryl [id number] sutures, subcutaneous tissue was closed using 2-0 vicryl, and skin was closed with marquise. Sterile dressings xeroform, 4x4's , abd's, foam tape were applied. The patient was taken to recovery room in stable and good condition. She tolerated the procedure well. I attest to the content of the Intraoperative Record and any orders documented therein. Any exceptions are noted below. Due to the complex nature of the procedure, the entire surgery was performed with the operational assistance of Samir Nelson PA-C. The conservation assistant, under direct supervision, was involved in the actual performance of all aspects of the surgical procedure including hemostasis, tissue retraction and incision, instrument management, patient positioning, and wound closure. I attest to the content of the Intraoperative Record and any orders documented therein. Any exceptions are noted below. I attest to the content of the Intraoperative Record and any orders documented therein. Any exceptions are noted below.
--- NOTE | 2017-08-04 10:36 | DIAGNOSTIC IMAGING REPORT ---
LEFT HIP 2 VIEWS CLINICAL HISTORY: Postoperative examination. FINDINGS: AP and crosstable lateral portable views of left hip are compared to study dated 08/02/2017. The skeletal structures are osteopenic. A unipolar left hip arthroplasty is in near-anatomic alignment. No acute fracture is seen. The visualized left hemipelvis appears intact. There are expected postoperative findings overlying the left hip including skin clips, soft tissue swelling, and subcutaneous gas. Atherosclerotic calcification is noted in the left femoral artery. IMPRESSION: Expected postoperative findings status post left hip arthroplasty. No acute fracture is seen. Electronically signed by: Timothy Estrella M.D. 08/04/2017 10:34 AM Dictated Date/Time: 08/04/2017 10:33 AM
--- NOTE | 2017-08-04 10:45 | Anesthesiology Progress Note ---
Anesthesia Post Op Note Date & Time Aug 04, 2017 at 10:45 Vital Signs Pain Intensity: 0 Vital Signs Past 12 Hours Date Time Temp Pulse Resp B/P (MAP) Pulse Ox O2 Delivery O2 Flow Rate FiO2 08/04/17 10:35 101 16 149/96 96 Nasal Cannula 4 08/04/17 10:25 101 16 152/99 95 Nasal Cannula 4 08/04/17 10:15 109 16 166/101 99 Oxymask 10 08/04/17 10:05 113 16 165/107 95 Oxymask 10 08/04/17 09:58 37. 99 16 166/109 97 Oxymask 10 08/04/17 06:59 36.8 96 17 144/88 (106) 93 Room Air 08/04/17 04:08 36.6 100 20 143/86 (105) 99 Nasal Cannula 1.5 08/04/17 04:02 Nasal Cannula 2.0 08/04/17 00:02 Nasal Cannula 2.0 08/03/17 23:04 36.4 101 16 123/59 (80) 97 Nasal Cannula 1.5 Notes Mental Status: alert / awake / arousable, participated in evaluation Pt Amnestic to Procedure: Yes Nausea / Vomiting: adequately controlled Pain: adequately controlled Airway Patency, RR, SpO2: stable & adequate BP & HR: stable & adequate Hydration State: stable & adequate Anesthetic Complications: no major complications apparent
--- NOTE | 2017-08-04 11:15 | Orthopedic Progress Note ---
Orthopedic Progress Note Date of Service Aug 04, 2017. Subjective Reports: feeling well Additional Notes: Post op progress note Patient seen in PACU, comfortable, no acutes issues, does not follow commands. Objective LLE: exam limited, patient does not follow commands +2DP pulse, CR < 2 seconds, compartments soft, NT. Abduction pillow in place, dressing CDI. Date Time Temp Pulse Resp B/P (MAP) Pulse Ox O2 Delivery O2 Flow Rate FiO2 08/04/17 10:35 101 16 149/96 96 Nasal Cannula 4 08/04/17 10:25 101 16 152/99 95 Nasal Cannula 4 08/04/17 10:15 109 16 166/101 99 Oxymask 10 08/04/17 10:05 113 16 165/107 95 Oxymask 10 08/04/17 09:58 37. 99 16 166/109 97 Oxymask 10 08/04/17 06:59 36.8 96 17 144/88 (106) 93 Room Air 08/04/17 04:08 36.6 100 20 143/86 (105) 99 Nasal Cannula 1.5 08/04/17 04:02 Nasal Cannula 2.0 08/04/17 00:02 Nasal Cannula 2.0 08/03/17 23:04 36.4 101 16 123/59 (80) 97 Nasal Cannula 1.5 08/03/17 20:00 Nasal Cannula 2.0 08/03/17 19:05 36.8 89 19 104/56 (72) 93 Nasal Cannula 2.0 08/03/17 17:19 36.8 85 20 139/78 94 Room Air 2.0 08/03/17 16:00 94 Nasal Cannula 2.0 08/03/17 15:21 36.8 85 20 139/78 (98) 95 1.0 08/03/17 12:00 94 Nasal Cannula 2.0 08/03/17 11:47 36.7 8 15 118/76 (90) 95 Nasal Cannula 1.0 Assessment & Plan Assessment: s/p L Hip Hemiarthroplasty Plan: -Pain controlled -WBAT LLE -PT/OT -Posterior hip precautions -Ancef x 24 -Restart patients home anticoagulation on 08/05/17 am, Eliquis and asa 81mg -AM labs
[2017-08-04] MEDS: LOSARTAN POTASSIUM 50 MG TAB PO SCH (11:51)
[2017-08-04] MEDS: RANITIDINE HCL 150 MG TAB PO SCH ×2 (11:51→21:00)
[2017-08-04] MEDS: EZETIMIBE 10MG TAB PO SCH (11:51)
[2017-08-04] MEDS: SERTRALINE HCL 50 MG TAB PO SCH (11:51)
--- NOTE | 2017-08-04 12:13 | Progress Note ---
Medicine Progress Note Date & Time of Visit: Aug 04, 2017 at 12:09. Subjective patient s/p hip surgery seen in tele floor alert, oriented x 1, somewhat confused but follows all commands denies pain ,nausea, chest pain, dyspnea, dizziness, palpitations repeating "i want to go home" no other symptoms Objective Last 8 Hrs Date Time Temp Pulse Resp B/P (MAP) Pulse Ox O2 Delivery O2 Flow Rate FiO2 08/04/17 12:00 103 14 139/96 (110) 92 08/04/17 10:35 101 16 149/96 96 Nasal Cannula 4 08/04/17 10:25 101 16 152/99 95 Nasal Cannula 4 08/04/17 10:15 109 16 166/101 99 Oxymask 10 08/04/17 10:05 113 16 165/107 95 Oxymask 10 08/04/17 09:58 37. 99 16 166/109 97 Oxymask 10 08/04/17 06:59 36.8 96 17 144/88 (106) 93 Room Air Physical Exam: General- oriented x2, not in distress Head- atraumatic Eyes- anicteric ENT- (+) hard of hearing, oropharynx clear Neck- supple, no JVD, no adenopathy Lungs- clear to auscultation bilaterally Heart- normal rate, irregularly irregular rhythm; no murmurs Abdomen- normal bowel sounds, soft, nontender Extremities- no pretibial edema, no calf tenderness; peripheral pulses intact left hip: (+) dressing in place, no bleeding Neuro- alert, oriented x 2; PERRL, EOMI; no facial palsy; no dysarthria; motor 5 /5 bilaterally; sensation 100% Skin- warm & dry Assessment & Plan 87 year old female with history of CAD, CABG/Stent, s/p PM, A fib on Eliquis, HTN, Dementia and other problems noted below presented with fall and hip pain. SUBCAPITAL LEFT HIP FRACTURE S/P MECHANICAL FALL - post op day 0 stable overall - continue usual cardiac medications resume Eliquis and ASA tomorrow as per Ortho HISTORY OF CAD/CABG/STENT PLACEMENT ATRIAL FIBRILLATION ON ELIQUIS S/P PACEMAKER - denies cardiac symptoms A fib , rate controlled - Cardiology evaluated preoperatively - Echo and PM interrogation performed - resume Eliquis and ASA tomorrow as per Ortho on Losartan, Metoprolol, Simvastatin DEMENTIA - had episodes of confusion -continue donepezil DEPRESSION -continue zoloft HTN -continue lopressor -continue losartan - add PRN Enalaprilat HYPOTHYROIDISM - TSH 7, free T4 normal subclinical hypothyroidism - continue Lthyroxine GERD -continue zantac DYSLIPIDEMIA lipid panel 04/2017: total: 170, HDL:81, LDL: 74, Triglycerides: 74 -continue zocor, zetia Pt had A1c 5.7 in 04/2017 per outside records DVT PROPHYLAXIS Eliquis to be started tomorrow DISPOSITION anticipate d/c to Rehab/SNF when medically stable Ortho ff up Cardio ff up follows with Dr. Garcia Current Inpatient Medications: Current Inpatient Medications Medications (Trade) Dose Ordered Sig/Jyothi Route Start Time Stop Time Status Last Admin Dose Admin Morphine Sulfate (MoRPHine SULFATE INJ) 2 mg Q4 PRN IV 08/02/17 15:45 08/16/17 15:44 08/04/17 04:40 2 MG Naloxone HCl (Narcan Inj) 0.1 mg PRN PRN IV 08/02/17 15:45 09/01/17 15:44 Polyethylene (Miralax Powder Packet) 17 gm DAILY PRN PO 08/02/17 15:45 09/01/17 15:44 Magnesium Hydroxide (Milk Of Magnesia Susp) 30 ml DAILY PRN PO 08/02/17 15:45 09/01/17 15:44 Bisacodyl (Dulcolax Supp) 10 mg DAILY PRN TX 08/02/17 15:45 09/01/17 15:44 Sodium Biphosphate/ Sodium Phosphate (Fleet Enema) 132 ml PRN PRN TX 08/02/17 15:45 Miscellaneous (Iv Fluids Completed) 1 ea PRN PRN N/A 08/02/17 16:00 08/02/18 15:59 Donepezil HCl (Aricept Tab) 5 mg HS PO 08/02/17 21:00 09/01/17 20:59 08/02/17 21:36 5 MG EZETIMIBE (Zetia Tab) 10 mg DAILY PO 08/03/17 09:00 09/02/17 08:59 08/04/17 11:51 10 MG Levothyroxine Sodium (Synthroid Tab) 25 mcg DAILYBB PO 08/03/17 06:00 09/02/17 06:59 08/04/17 04:39 25 MCG Losartan Potassium (coZAAR TAB) 50 mg DAILY PO 08/03/17 09:00 09/02/17 08:59 08/04/17 11:51 50 MG Ranitidine HCl (zANTac TAB) 150 mg BID PO 08/02/17 21:00 09/01/17 20:59 08/04/17 11:51 150 MG Simvastatin (Zocor Tab) 40 mg QPM PO 08/02/17 21:00 09/01/17 20:59 08/02/17 21:37 40 MG Sertraline HCl (Zoloft Tab) 25 mg DAILY PO 08/03/17 09:00 09/02/17 08:59 08/04/17 11:51 25 MG Metoprolol Succinate (Toprol Xl Tab) 100 mg HS PO 08/02/17 21:00 09/01/17 20:59 08/02/17 21:35 100 MG Acetaminophen 100 ml @ 400 mls/hr Q8H PRN IV 08/03/17 16:30 09/02/17 16:29 08/03/17 17:44 400 MLS/HR Ropivacaine 150 mg/Bupivacaine HCl 30 ml/ Epinephrine HCl 0.15 mg/Ketorolac Tromethamine 30 mg/Dexamethasone Sodium Phosphate 4 mg/Ketamine HCl 10 mg/Clonidine 100 mcg/Sodium Chloride 93.35 ml @ 0 mls/hr TODAY@06 INFIL 08/04/17 06:00 08/04/17 18:00 08/04/17 09:34 93.2 MLS/HR Sodium Chloride 1,000 ml @ 85 mls/hr [id number] IV 08/04/17 09:51 09/03/17 09:50 08/04/17 11:56 85 MLS/HR Ondansetron HCl (Zofran Inj) 4 mg Q6H PRN IV 08/04/17 10:00 09/03/17 09:59 08/04/17 11:46 4 MG Acetaminophen (Tylenol Tab) 650 mg Q6H PRN PO 08/04/17 10:00 09/03/17 09:59 Oxycodone HCl (Roxicodone Immediate Rel Tab) 5 mg Q4H PRN PO 08/04/17 10:00 08/18/17 09:59 Menthol (Nice Ansley) 1 ansley Q2H PRN PO 08/04/17 10:00 09/03/17 09:59 Senna/Docusate Sodium (Senokot S Tab) 2 tab HS PO 08/04/17 21:00 09/03/17 20:59 Polyethylene (Miralax Powder Packet) 17 gm Q6 PO 08/06/17 06:00 09/05/17 05:59 Apixaban (Eliquis Tab) 2.5 mg BID PO 08/05/17 08:00 09/04/17 07:59 Aspirin (Ecotrin Tab) 81 mg QAM PO 08/05/17 09:00 09/04/17 08:59 Cefazolin Sodium 1000 mg/Syringe 5 ml @ 1.667 mls/ min Q8H IV 08/04/17 16:00 08/05/17 00:02
[2017-08-04] MEDS ORDERED: ENALAPRILAT IV 0.625 MG in DEXTROSE 5% 25ML 25 ML IV PRN (12:15)
[2017-08-04] MEDS: CEFAZOLIN IV 1,000 MG in SYRINGE 0 ML IV SCH (16:13)
[2017-08-04] MEDS: SODIUM CHLORIDE 0.9% 500ML 500 ML IV SCH ×2 (18:21→18:46)
[2017-08-04] MEDS ORDERED: NURSING VERBAL MED ORDER ONE (19:00)
[2017-08-04 20:21] LABS: COMPLETE YES; ECHINOCYTES 1+; HEMATOCRIT 33.3 % (37-47); IG% 0.2 %; LYMPH % 2.7 %; LYMPH ABS # 0.22 K/uL (1.2-3.4); MEAN CELL VOLUME 91.7 fL (80-100); MEAN CORPUSCULAR HEMOGLOBIN 29.8 pg (25-34); MEAN CORPUSCULAR HGB CONC 32.4 g/dl (32-36); MEAN PLATELET VOLUME 12.1 fL (7.4-10.4); MONO % 7.3 %; NEUT % 89.8 %; OVALOCYTES 1+; PLATELET COUNT 127 K/uL (130-400); PLT ESTIMATE NORMAL; RED BLOOD COUNT 3.63 M/uL (4.2-5.4); WHITE BLOOD COUNT 8.24 K/uL (4.8-10.8)
[2017-08-04] MEDS: DOCUSATE SODIUM/SENNA 50/8.6MG TAB PO SCH (20:59)
[2017-08-04] MEDS: DONEPEZIL HCL 5 MG TAB PO SCH ×2 (20:59→21:00)
[2017-08-04] MEDS: METOPROLOL SUCC 50MG EXT REL TAB PO SCH (21:00)
[2017-08-04] MEDS: SIMVASTATIN 40 MG TAB PO SCH (21:00)
[2017-08-04] MEDS ORDERED: HALOPERIDOL 1 MG TAB PO PRN (21:30)
[2017-08-04] MEDS ORDERED: HALOPERIDOL LACTATE 5 MG/ML 1 ML VIAL ONE (21:32)
[2017-08-04] MEDS: HALOPERIDOL LACTATE 5 MG/ML 1 ML VIAL IM PRN (21:34)
[2017-08-04] MEDS ORDERED: OLANZAPINE 10 MG/2.1 ML SDV IM STA (22:55)
[2017-08-05] VITALS (12 sets, daily range): BP systolic 94–149; BP diastolic 62–88; PULSE 77–130; TEMP 36.4–37.1; O2SAT 93–99
[2017-08-05] MEDS: CEFAZOLIN IV 1,000 MG in SYRINGE 0 ML IV SCH (00:22)
[2017-08-05] MEDS: MoRPHine SULFATE 2 MG/ML CARP IV PRN (03:04)
[2017-08-05] MEDS: HALOPERIDOL LACTATE 5 MG/ML 1 ML VIAL IM PRN (04:30)
[2017-08-05] MEDS ORDERED: METOPROLOL TARTRATE 1 MG/ML VIAL IV ONE (04:59)
[2017-08-05] MEDS ORDERED: OLANZAPINE 10 MG/2.1 ML SDV IM STA (04:59)
[2017-08-05] MEDS: LEVOTHYROXINE 25 MCG TAB PO SCH (05:17)
--- NOTE | 2017-08-05 05:17 | Progress Note ---
Internal Med Progress Note Date of Service: Aug 05, 2017. Provider Documentation: Made aware by RN of tamiko ennis, cardiac rate 130s. Patient agitated. Patient refused nighttime PO beta eleanor. IV beta eleanor RTC for now. Will relay to AM provider. Vital Signs: Date Time Temp Pulse Resp B/P (MAP) Pulse Ox O2 Delivery O2 Flow Rate FiO2 08/05/17 09:11 2.0 08/05/17 07:00 37.1 121 22 125/88 (100) 93 Nasal Cannula 2.0 08/05/17 06:35 130 08/05/17 06:21 132 08/05/17 06:04 129 116/80 (92) 08/05/17 06:00 130 08/05/17 05:29 111 123/69 08/05/17 04:59 127 127/62 (83) 08/05/17 04:45 125 08/05/17 04:00 Nasal Cannula 2.0 Oxymask 08/05/17 03:50 119 08/05/17 02:59 36.8 97 22 94/80 (85) 97 Nasal Cannula 2.0 08/05/17 00:02 Nasal Cannula 2.0 Oxymask 08/04/17 23:03 36.8 94 20 95/77 (83) 93 Room Air 08/04/17 20:41 122/67 (85) 08/04/17 20:26 110/62 (78) 08/04/17 20:00 Oxymask 4.0 08/04/17 20:00 114/71 (85) 08/04/17 19:48 132/60 (84) 08/04/17 19:38 115/69 (84) 08/04/17 19:20 129/58 (81) 08/04/17 19:03 36.7 100 22 115/59 (77) 99 Oxymask 4.0 08/04/17 19:01 113/55 (74) 08/04/17 18:46 94/61 (72) 08/04/17 18:32 102/62 (75) 08/04/17 18:22 100/57 (71) 08/04/17 17:53 100/63 (75) 08/04/17 16:00 96 Oxymask 4.0 08/04/17 15:41 107/82 (90) 08/04/17 15:01 36.7 99 20 101/73 (82) 100 Oxymask 4.0 08/04/17 14:35 116/71 (86) 08/04/17 14:04 101 15 95/56 (69) 99 Oxymask 08/04/17 12:55 36.5 107 20 114/70 (85) 92 Oxymask 4.0 08/04/17 12:00 103 14 139/96 (110) 92 08/04/17 12:00 91 Room Air 08/04/17 11:05 36.5 106 17 184/96 (125) 91 Nasal Cannula 4.0 08/04/17 10:35 101 16 149/96 96 Nasal Cannula 4 Lab Results: Results Past 24 Hours Test 08/04/17 19:13 08/05/17 05:21 Range/Units White Blood Count 8.24 9.53 4.8-10.8 K/uL Red Blood Count 3.63 3.47 4.2-5.4 M/uL Hemoglobin 10.8 10.3 12.0-16.0 g/dL Hematocrit 33.3 32.0 37-47 % Mean Corpuscular Volume 91.7 92.2 80-100 fL Mean Corpuscular Hemoglobin 29.8 29.7 25-34 pg Mean Corpuscular Hemoglobin Concent 32.4 32.2 32-36 g/dl Platelet Count 127 131 130-400 K/uL Mean Platelet Volume 12.1 11.4 7.4-10.4 fL Neutrophils (%) (Auto) 89.8 82.7 % Lymphocytes (%) (Auto) 2.7 4.6 % Monocytes (%) (Auto) 7.3 12.5 % Eosinophils (%) (Auto) 0.0 0.0 % Basophils (%) (Auto) 0.0 0.0 % Neutrophils # (Auto) 7.40 7.88 1.4-6.5 K/uL Lymphocytes # (Auto) 0.22 0.44 1.2-3.4 K/uL Monocytes # (Auto) 0.60 1.19 0.11-0.59 K/uL Eosinophils # (Auto) 0.00 0.00 0-0.5 K/uL Basophils # (Auto) 0.00 0.00 0-0.2 K/uL RDW Standard Deviation 50.6 51.6 36.4-46.3 fL RDW Coefficient of Variation 14.8 15.1 11.5-14.5 % Immature Granulocyte % (Auto) 0.2 0.2 % Immature Granulocyte # (Auto) 0.02 0.02 0.00-0.02 K/uL Platelet Estimate NORMAL Ovalocytes 1+ Echinocytes 1+ Sodium Level 140 136-145 mmol/L Potassium Level 3.5 3.5-5.1 mmol/L Chloride Level 107 98-107 mmol/L Carbon Dioxide Level 22 21-32 mmol/L Anion Gap 11.0 3-11 mmol/L Blood Urea Nitrogen 15 7-18 mg/dl Creatinine 0.80 0.60-1.20 mg/dl Est Creatinine Clear Calc Drug Dose 37.9 ml/min Estimated GFR () 77.9 Estimated GFR (Non- 67.2 BUN/Creatinine Ratio 19.2 10-20 Random Glucose 103 70-99 mg/dl Calcium Level 8.0 8.5-10.1 mg/dl Magnesium Level 1.8 1.8-2.4 mg/dl
[2017-08-05 05:50] LABS: COMPLETE YES; IG% 0.2 %; LYMPH % 4.6 %; LYMPH ABS # 0.44 K/uL (1.2-3.4); MEAN CELL VOLUME 92.2 fL (80-100); MEAN CORPUSCULAR HEMOGLOBIN 29.7 pg (25-34); MEAN CORPUSCULAR HGB CONC 32.2 g/dl (32-36); MEAN PLATELET VOLUME 11.4 fL (7.4-10.4); MONO % 12.5 %; NEUT % 82.7 %; PLATELET COUNT 131 K/uL (130-400); RED BLOOD COUNT 3.47 M/uL (4.2-5.4); WHITE BLOOD COUNT 9.53 K/uL (4.8-10.8)
[2017-08-05] MEDS ORDERED: METOPROLOL TARTRATE 1 MG/ML VIAL IV STA (06:07)
[2017-08-05 06:27] LABS: BUN/CREATININE RATIO 19.2 (10-20); CREATININE 0.8 mg/dl (0.60-1.20); MAGNESIUM 1.8 mg/dl (1.8-2.4); POTASSIUM 3.5 mmol/L (3.5-5.1)
[2017-08-05] MEDS ORDERED: LACTATED RINGER'S 1000ML 1,000 ML IV ONE (07:00)
[2017-08-05] MEDS ORDERED: MAGNESIUM SULFATE 1GM / D5W 1 GM in PREMIXED IN D5W 100 ML IV STA (07:07)
[2017-08-05] MEDS: SERTRALINE HCL 50 MG TAB PO SCH (07:46)
[2017-08-05] MEDS: RANITIDINE HCL 150 MG TAB PO SCH ×2 (07:46→20:37)
[2017-08-05] MEDS: ASPIRIN 81 MG ECTAB PO SCH (07:46)
[2017-08-05] MEDS: LOSARTAN POTASSIUM 50 MG TAB PO SCH (07:46)
[2017-08-05] MEDS: APIXABAN 2.5 MG TAB PO SCH ×3 (07:46→20:38)
[2017-08-05] MEDS: EZETIMIBE 10MG TAB PO SCH (07:46)
[2017-08-05] MEDS: POTASSIUM CHLR 10 MEQ / WTR 10 MEQ in PREMIXED WATER 100 ML IV SCH ×5 (07:46→13:02)
[2017-08-05] MEDS ORDERED: METOPROLOL SUCC 50MG EXT REL TAB PO ONE ×2 (09:20→15:15)
--- NOTE | 2017-08-05 09:29 | Orthopedic Progress Note ---
Orthopedic Progress Note Date of Service Aug 05, 2017. Subjective Additional Notes: Patient seen laying in bed, nurse at bedside, patient confused, does not respond to questioning or follow commands. Objective LLE: exam limited, patient does not follow commands, actively moving bilateral feet and toes +2DP pulse, CR < 2 seconds, compartments soft, NT. Abduction pillow in place, dressing CDI. Date Time Temp Pulse Resp B/P (MAP) Pulse Ox O2 Delivery O2 Flow Rate FiO2 08/05/17 09:11 2.0 08/05/17 07:00 37.1 121 22 125/88 (100) 93 Nasal Cannula 2.0 08/05/17 06:35 130 08/05/17 06:21 132 08/05/17 06:04 129 116/80 (92) 08/05/17 06:00 130 08/05/17 05:29 111 123/69 08/05/17 04:59 127 127/62 (83) 08/05/17 04:45 125 08/05/17 04:00 Nasal Cannula 2.0 Oxymask 08/05/17 03:50 119 08/05/17 02:59 36.8 97 22 94/80 (85) 97 Nasal Cannula 2.0 08/05/17 00:02 Nasal Cannula 2.0 Oxymask 08/04/17 23:03 36.8 94 20 95/77 (83) 93 Room Air 08/04/17 20:41 122/67 (85) 08/04/17 20:26 110/62 (78) 08/04/17 20:00 Oxymask 4.0 08/04/17 20:00 114/71 (85) 08/04/17 19:48 132/60 (84) 08/04/17 19:38 115/69 (84) 08/04/17 19:20 129/58 (81) 08/04/17 19:03 36.7 100 22 115/59 (77) 99 Oxymask 4.0 08/04/17 19:01 113/55 (74) 08/04/17 18:46 94/61 (72) 08/04/17 18:32 102/62 (75) 08/04/17 18:22 100/57 (71) 08/04/17 17:53 100/63 (75) 08/04/17 16:00 96 Oxymask 4.0 08/04/17 15:41 107/82 (90) 08/04/17 15:01 36.7 99 20 101/73 (82) 100 Oxymask 4.0 08/04/17 14:35 116/71 (86) 08/04/17 14:04 101 15 95/56 (69) 99 Oxymask 08/04/17 12:55 36.5 107 20 114/70 (85) 92 Oxymask 4.0 08/04/17 12:00 103 14 139/96 (110) 92 08/04/17 12:00 91 Room Air 08/04/17 11:05 36.5 106 17 184/96 (125) 91 Nasal Cannula 4.0 08/04/17 10:35 101 16 149/96 96 Nasal Cannula 4 08/04/17 10:25 101 16 152/99 95 Nasal Cannula 4 08/04/17 10:15 109 16 166/101 99 Oxymask 10 08/04/17 10:05 113 16 165/107 95 Oxymask 10 08/04/17 09:58 37. 99 16 166/109 97 Oxymask 10 Laboratory Results 24 Hours: Test 08/04/17 19:13 08/05/17 05:21 White Blood Count 8.24 K/uL 9.53 K/uL Red Blood Count 3.63 M/uL 3.47 M/uL Hemoglobin 10.8 g/dL 10.3 g/dL Hematocrit 33.3 % 32.0 % Mean Corpuscular Volume 91.7 fL 92.2 fL Mean Corpuscular Hemoglobin 29.8 pg 29.7 pg Mean Corpuscular Hemoglobin Concent 32.4 g/dl 32.2 g/dl Platelet Count 127 K/uL 131 K/uL Mean Platelet Volume 12.1 fL 11.4 fL Neutrophils (%) (Auto) 89.8 % 82.7 % Lymphocytes (%) (Auto) 2.7 % 4.6 % Monocytes (%) (Auto) 7.3 % 12.5 % Eosinophils (%) (Auto) 0.0 % 0.0 % Basophils (%) (Auto) 0.0 % 0.0 % Neutrophils # (Auto) 7.40 K/uL 7.88 K/uL Lymphocytes # (Auto) 0.22 K/uL 0.44 K/uL Monocytes # (Auto) 0.60 K/uL 1.19 K/uL Eosinophils # (Auto) 0.00 K/uL 0.00 K/uL Basophils # (Auto) 0.00 K/uL 0.00 K/uL Assessment & Plan Assessment: s/p L Hip Hemiarthroplasty POD#1 Plan: -Would hold narcotic pain medication secondary to confusion, according to MAR received morphine IV at 0300. -WBAT LLE -PT/OT - when medically stable -Posterior hip precautions -Ancef x 24 -DVT PPX - Eliquis and asa 81mg -Hgb - 10.3
--- NOTE | 2017-08-05 09:35 | Cardiology Follow-Up ---
Subjective General Date of Service: Aug 05, 2017. Chief Complaint: hip fx; afib Pt evaluation today including: conversation w/ patient, physical exam, chart review, lab review, review of studies, conversation w/ home care consultant, review of inpatient medication list History of Present Illness Patient post op day 1 left hip hemiarthroplasty. Patient confused, demented. ? Baseline. ROS not able to be performed. Telemetry reviewed - afib with rates 100-120 On review of admission and outpatient med lists - differing doses of Lopressor and toprol Xl listed. Patient did not receive oral metoprolol x 2 days. HR's currently elevated. Has been receiving IV metoprolol PRN Per nurse, now tolerating PO meds and food. Allergies Coded Allergies: No Known Allergies (Unverified , 08/02/17) Social History Smoking Status: Never Smoker Hx Tobacco Use In Past Year?: No Hx Alcohol Use - Type And Amou: No Hx Substance Use - Type And Am: No Problem List Medical Problems: (1) Hallucination Status: Acute Review of Systems Respiratory: + see HPI Cardiac: + see HPI Physical Exam Vital Signs Last Vital Signs Documentation Date Time Temp Pulse Resp B/P (MAP) Pulse Ox O2 Delivery O2 Flow Rate FiO2 08/05/17 09:11 2.0 08/05/17 07:00 37.1 121 22 125/88 (100) 93 Nasal Cannula Physical Exam Constitutional: Level of Distress: acutely ill, chronically ill Psychiatric: Mental Status: confused, agitated Lungs: Respiratory effort: good air movement Cardiovascular: Heart Auscultation: tachycardia, II/ MAE, irregular rate rhythm Extremities: no edema Assessment and Plan Assessment and Plan 87-year-old female 1. POD 1 left hip hemiarthroplasty 2. Afib with RVR in the post op setting, chronic afib. -Oral metoprolol held over the last few days. -Several Lopressor/toprol doses listed on admission records and outpatient records -start toprol 50 mg this AM. -monitor HR and BP response -Anticoagulation therapy resumed today 3. Hypothyroidism - treat 4. Dementia -? baseline -will need rehab/placement Patient seen and examined. Agree with above Will give second dose of Toprol this afternoon for a total of 100 mg. Heart rates are being driven by agitation , pain. Will need to watch volume status, stop IV fluids when PO intake starts. Mariano Cheng MD Case discussed with Dr. Cheng. Will follow. Laboratory Results Last 24 Hours Test 08/04/17 19:13 08/05/17 05:21 White Blood Count 8.24 K/uL 9.53 K/uL Red Blood Count 3.63 M/uL 3.47 M/uL Hemoglobin 10.8 g/dL 10.3 g/dL Hematocrit 33.3 % 32.0 % Mean Corpuscular Volume 91.7 fL 92.2 fL Mean Corpuscular Hemoglobin 29.8 pg 29.7 pg Mean Corpuscular Hemoglobin Concent 32.4 g/dl 32.2 g/dl Platelet Count 127 K/uL 131 K/uL Mean Platelet Volume 12.1 fL 11.4 fL Neutrophils (%) (Auto) 89.8 % 82.7 % Lymphocytes (%) (Auto) 2.7 % 4.6 % Monocytes (%) (Auto) 7.3 % 12.5 % Eosinophils (%) (Auto) 0.0 % 0.0 % Basophils (%) (Auto) 0.0 % 0.0 % Neutrophils # (Auto) 7.40 K/uL 7.88 K/uL Lymphocytes # (Auto) 0.22 K/uL 0.44 K/uL Monocytes # (Auto) 0.60 K/uL 1.19 K/uL Eosinophils # (Auto) 0.00 K/uL 0.00 K/uL Basophils # (Auto) 0.00 K/uL 0.00 K/uL RDW Standard Deviation 50.6 fL 51.6 fL RDW Coefficient of Variation 14.8 % 15.1 % Immature Granulocyte % (Auto) 0.2 % 0.2 % Immature Granulocyte # (Auto) 0.02 K/uL 0.02 K/uL Platelet Estimate NORMAL Ovalocytes 1+ Echinocytes 1+ Sodium Level 140 mmol/L Potassium Level 3.5 mmol/L Chloride Level 107 mmol/L Carbon Dioxide Level 22 mmol/L Anion Gap 11.0 mmol/L Blood Urea Nitrogen 15 mg/dl Creatinine 0.80 mg/dl Est Creatinine Clear Calc Drug Dose 37.9 ml/min Estimated GFR () 77.9 Estimated GFR (Non- 67.2 BUN/Creatinine Ratio 19.2 Random Glucose 103 mg/dl Calcium Level 8.0 mg/dl Magnesium Level 1.8 mg/dl
--- NOTE | 2017-08-05 09:57 | Progress Note ---
Medicine Progress Note Date & Time of Visit: Aug 05, 2017 at 09:50. Subjective was noted have delirium overnight, also was in a fib with RVR this morning still in a fib with HR 120s confused, not in distress does not seem to be in pain, distress ate breakfast no other symptoms Objective Last 8 Hrs Date Time Temp Pulse Resp B/P (MAP) Pulse Ox O2 Delivery O2 Flow Rate FiO2 08/05/17 09:11 2.0 08/05/17 07:00 37.1 121 22 125/88 (100) 93 Nasal Cannula 2.0 08/05/17 06:35 130 08/05/17 06:21 132 08/05/17 06:04 129 116/80 (92) 08/05/17 06:00 130 08/05/17 05:29 111 123/69 08/05/17 04:59 127 127/62 (83) 08/05/17 04:45 125 08/05/17 04:00 Nasal Cannula 2.0 Oxymask 08/05/17 03:50 119 08/05/17 02:59 36.8 97 22 94/80 (85) 97 Nasal Cannula 2.0 Physical Exam: General- confused, not in distress Eyes- anicteric ENT- (+) hard of hearing Neck- supple, no JVD Lungs- clear breath sounds bilaterally Heart- tachycardic rate, irregularly irregular rhythm; no murmurs Abdomen- normal bowel sounds, soft, nontender Extremities- no pretibial edema, no calf tenderness; peripheral pulses intact left hip: (+) dressing in place, no bleeding, no hematoma Neuro- alert, not oriented, otherwise no other gross focal deficits Skin- warm & dry Laboratory Results: Last 24 Hours Test 08/04/17 19:13 08/05/17 05:21 White Blood Count 8.24 K/uL 9.53 K/uL Red Blood Count 3.63 M/uL 3.47 M/uL Hemoglobin 10.8 g/dL 10.3 g/dL Hematocrit 33.3 % 32.0 % Mean Corpuscular Volume 91.7 fL 92.2 fL Mean Corpuscular Hemoglobin 29.8 pg 29.7 pg Mean Corpuscular Hemoglobin Concent 32.4 g/dl 32.2 g/dl Platelet Count 127 K/uL 131 K/uL Mean Platelet Volume 12.1 fL 11.4 fL Neutrophils (%) (Auto) 89.8 % 82.7 % Lymphocytes (%) (Auto) 2.7 % 4.6 % Monocytes (%) (Auto) 7.3 % 12.5 % Eosinophils (%) (Auto) 0.0 % 0.0 % Basophils (%) (Auto) 0.0 % 0.0 % Neutrophils # (Auto) 7.40 K/uL 7.88 K/uL Lymphocytes # (Auto) 0.22 K/uL 0.44 K/uL Monocytes # (Auto) 0.60 K/uL 1.19 K/uL Eosinophils # (Auto) 0.00 K/uL 0.00 K/uL Basophils # (Auto) 0.00 K/uL 0.00 K/uL RDW Standard Deviation 50.6 fL 51.6 fL RDW Coefficient of Variation 14.8 % 15.1 % Immature Granulocyte % (Auto) 0.2 % 0.2 % Immature Granulocyte # (Auto) 0.02 K/uL 0.02 K/uL Platelet Estimate NORMAL Ovalocytes 1+ Echinocytes 1+ Sodium Level 140 mmol/L Potassium Level 3.5 mmol/L Chloride Level 107 mmol/L Carbon Dioxide Level 22 mmol/L Anion Gap 11.0 mmol/L Blood Urea Nitrogen 15 mg/dl Creatinine 0.80 mg/dl Est Creatinine Clear Calc Drug Dose 37.9 ml/min Estimated GFR () 77.9 Estimated GFR (Non- 67.2 BUN/Creatinine Ratio 19.2 Random Glucose 103 mg/dl Calcium Level 8.0 mg/dl Magnesium Level 1.8 mg/dl Assessment & Plan 87 year old female with history of CAD, CABG/Stent, s/p PM, A fib on Eliquis, HTN, Dementia and other problems noted below presented with fall and hip pain. SUBCAPITAL LEFT HIP FRACTURE S/P MECHANICAL FALL - post op day 1 Hg decreased to 10 no signs of active bleeding monitor - appreciate Ortho recommendations - continue usual cardiac medications resume Eliquis and ASA - PT/OT HISTORY OF CAD/CABG/STENT PLACEMENT ATRIAL FIBRILLATION ON ELIQUIS S/P PACEMAKER - Cardiology evaluated preoperatively - Echo and PM interrogation performed - (+) a fib with RVR since last night Metoprolol held yesterday due to low BP/patient declines Metoprolol restarted today at a lower dose, monitor response - ok with Surgery to resume Eliquis and ASA on Losartan, Metoprolol, Simvastatin - monitor DEMENTIA (+) delirium overnight likely multifactorial: hospital delirium, s/p surgery, from morphine? - d/c Morphine--> PRN Ofirmev and Tramadol -continue donepezil - monitor DEPRESSION -continue zoloft HTN -continue lopressor -continue losartan - add PRN Enalaprilat HYPOTHYROIDISM - TSH 7, free T4 normal subclinical hypothyroidism - continue Lthyroxine GERD -continue zantac DYSLIPIDEMIA lipid panel 04/2017: total: 170, HDL:81, LDL: 74, Triglycerides: 74 -continue zocor, zetia Pt had A1c 5.7 in 04/2017 per outside records DVT PROPHYLAXIS Eliquis and ASA DISPOSITION anticipate d/c to Rehab/SNF when medically stable Ortho ff up Dr. Waggoner Cardio ff up Dr. Cheng PCP ff up Dr. Garcia Current Inpatient Medications: Current Inpatient Medications Medications (Trade) Dose Ordered Sig/Jyothi Route Start Time Stop Time Status Last Admin Dose Admin Morphine Sulfate (MoRPHine SULFATE INJ) 2 mg Q4 PRN IV 08/02/17 15:45 08/16/17 15:44 08/05/17 03:04 2 MG Naloxone HCl (Narcan Inj) 0.1 mg PRN PRN IV 08/02/17 15:45 09/01/17 15:44 Polyethylene (Miralax Powder Packet) 17 gm DAILY PRN PO 08/02/17 15:45 09/01/17 15:44 Magnesium Hydroxide (Milk Of Magnesia Susp) 30 ml DAILY PRN PO 08/02/17 15:45 09/01/17 15:44 Bisacodyl (Dulcolax Supp) 10 mg DAILY PRN ME 08/02/17 15:45 09/01/17 15:44 Sodium Biphosphate/ Sodium Phosphate (Fleet Enema) 132 ml PRN PRN ME 08/02/17 15:45 Miscellaneous (Iv Fluids Completed) 1 ea PRN PRN N/A 08/02/17 16:00 08/02/18 15:59 Donepezil HCl (Aricept Tab) 5 mg HS PO 08/02/17 21:00 09/01/17 20:59 08/02/17 21:36 5 MG EZETIMIBE (Zetia Tab) 10 mg DAILY PO 08/03/17 09:00 09/02/17 08:59 08/05/17 07:46 10 MG Levothyroxine Sodium (Synthroid Tab) 25 mcg DAILYBB PO 08/03/17 06:00 09/02/17 06:59 08/05/17 05:17 25 MCG Losartan Potassium (coZAAR TAB) 50 mg DAILY PO 08/03/17 09:00 09/02/17 08:59 08/05/17 07:46 50 MG Ranitidine HCl (zANTac TAB) 150 mg BID PO 08/02/17 21:00 09/01/17 20:59 08/05/17 07:46 150 MG Simvastatin (Zocor Tab) 40 mg QPM PO 08/02/17 21:00 09/01/17 20:59 08/02/17 21:37 40 MG Sertraline HCl (Zoloft Tab) 25 mg DAILY PO 08/03/17 09:00 09/02/17 08:59 08/05/17 07:46 25 MG Acetaminophen 100 ml @ 400 mls/hr Q8H PRN IV 08/03/17 16:30 09/02/17 16:29 08/03/17 17:44 400 MLS/HR Sodium Chloride 1,000 ml @ 85 mls/hr [id number] IV 08/04/17 09:51 09/03/17 09:50 08/04/17 23:43 85 MLS/HR Ondansetron HCl (Zofran Inj) 4 mg Q6H PRN IV 08/04/17 10:00 09/03/17 09:59 08/04/17 11:46 4 MG Acetaminophen (Tylenol Tab) 650 mg Q6H PRN PO 08/04/17 10:00 09/03/17 09:59 Oxycodone HCl (Roxicodone Immediate Rel Tab) 5 mg Q4H PRN PO 08/04/17 10:00 08/18/17 09:59 Menthol (Nice Ansley) 1 ansley Q2H PRN PO 08/04/17 10:00 09/03/17 09:59 Senna/Docusate Sodium (Senokot S Tab) 2 tab HS PO 08/04/17 21:00 09/03/17 20:59 Polyethylene (Miralax Powder Packet) 17 gm Q6 PO 08/06/17 06:00 09/05/17 05:59 Apixaban (Eliquis Tab) 2.5 mg BID PO 08/05/17 08:00 09/04/17 07:59 08/05/17 07:46 2.5 MG Aspirin (Ecotrin Tab) 81 mg QAM PO 08/05/17 09:00 09/04/17 08:59 08/05/17 07:46 81 MG Enalaprilat 0.625 mg/Dextrose 25.5 ml @ 100 mls/hr Q6H PRN IV 08/04/17 12:15 09/03/17 12:14 Lactated Ringer's 1,000 ml @ 80 mls/hr [id number] ONCE IV 08/05/17 07:00 08/05/17 19:29 08/05/17 07:45 80 MLS/HR Potassium Chloride 10 meq/ Prmx 100 ml @ 100 mls/hr Q1H IV 08/05/17 07:00 08/05/17 11:59 08/05/17 09:03 100 MLS/HR Metoprolol Succinate (Toprol Xl Tab) 50 mg QAM PO 08/06/17 09:00 09/05/17 08:59 Tramadol HCl (Ultram Tab) 50 mg Q6H PRN PO 08/05/17 09:45 09/04/17 09:44 UNV
--- NOTE | 2017-08-05 10:31 | Clinical Documentation Query ---
CLINICAL DOCUMENTATION QUERY An 87 yo female admitted with left hip pain s/p fall. Patient's initial neurological evaluation documents oriented to person, place, day, year, confused to month. Post surgical intervention, patient's neurological evaluation documents patient was not following commands to oriented x 1, somewhat confused but follows commands. In your clinical opinion is this patient being managed for: ( ) Encephalopathy, resolving ( X) Not Agree ( X ) Other explanation of clinical findings (Please Explain) Possible Delirium, Multifactorial ( ) Unable to determine (Please Define) ( ) Need to Discuss The medical record reflects the following clinical findings, treatment, and risk factors. Clinical Indicators: Altered mental status s/p surgical intervention and morphine administration Treatment: Confusion assessment, neuro checks, one on one observation Risk Factors: Age, s/p surgical intervention, dementia Encephalopathy is a term for any diffuse disease of the brain that alters brain function or structure. There are many causes of encephalopathy including: advanced or severe disease states such as liver or kidney disease, infection, lack of oxygen to the brain, brain tumor or increased intracranial pressure, prolonged exposure to toxic substances including drug and alcohol abuse, trauma, poor nutrition and lack of adequate blood flow to the brain. 33-67% of all CABG patients develop post CABG encephalopathy. ([employer], 07/2002) Please clarify and document your clinical opinion in the progress notes and discharge summary. Terms such as "probable", "suspected", "likely", "questionable", "possible", or "still to be ruled out" are acceptable. IF IN AGREEMENT, YOU MUST DOCUMENT ABOVE DIAGNOSTIC STATEMENT IN DAILY PROGRESS NOTES AND DISCHARGE SUMMARY. This document is not part of the patient's record. Thank You, Libby Wise RN [phone]
[2017-08-05] MEDS ORDERED: METOPROLOL TARTRATE 1 MG/ML VIAL IV. SCH (12:00)
[2017-08-05] MEDS: TRAMADOL HCL 50 MG TAB PO PRN (13:05)
[2017-08-05] MEDS: DOCUSATE SODIUM/SENNA 50/8.6MG TAB PO SCH (20:37)
[2017-08-05] MEDS: SIMVASTATIN 40 MG TAB PO SCH (20:38)
[2017-08-05] MEDS: DONEPEZIL HCL 5 MG TAB PO SCH (20:39)
[2017-08-06] VITALS (12 sets, daily range): BP systolic 105–154; BP diastolic 61–114; PULSE 93–139; TEMP 36.6–37.3; O2SAT 92–100
[2017-08-06] MEDS ORDERED: METOPROLOL SUCC 50MG EXT REL TAB PO ONE (01:44)
[2017-08-06 02:32] LABS: COMPLETE YES; EOS % 0.6 %; HEMATOCRIT 31.7 % (37-47); IG% 0.3 %; LYMPH % 8.2 %; LYMPH ABS # 0.56 K/uL (1.2-3.4); MEAN CORPUSCULAR HEMOGLOBIN 29.3 pg (25-34); MEAN CORPUSCULAR HGB CONC 31.5 g/dl (32-36); MEAN PLATELET VOLUME 11.3 fL (7.4-10.4); MONO % 12.2 %; NEUT % 78.7 %; PLATELET COUNT 145 K/uL (130-400); RED BLOOD COUNT 3.41 M/uL (4.2-5.4); WHITE BLOOD COUNT 6.86 K/uL (4.8-10.8)
[2017-08-06 02:54] LABS: BUN/CREATININE RATIO 30.8 (10-20); CALCIUM 8.4 mg/dl (8.5-10.1); CREATININE 0.62 mg/dl (0.60-1.20); POTASSIUM 4.6 mmol/L (3.5-5.1)
[2017-08-06] MEDS ORDERED: METOPROLOL TARTRATE 1 MG/ML VIAL IV STA (05:12)
[2017-08-06] MEDS ORDERED: METOPROLOL TARTRATE 1 MG/ML VIAL ONE (05:24)
[2017-08-06] MEDS: POLYETHYLENE (MIRALAX) 17 GM PACK PO SCH ×3 (05:30→18:00)
[2017-08-06] MEDS: LEVOTHYROXINE 25 MCG TAB PO SCH (05:30)
[2017-08-06] MEDS: RANITIDINE HCL 150 MG TAB PO SCH ×2 (07:45→21:00)
[2017-08-06] MEDS: EZETIMIBE 10MG TAB PO SCH (07:45)
[2017-08-06] MEDS: ASPIRIN 81 MG ECTAB PO SCH (07:45)
[2017-08-06] MEDS: APIXABAN 2.5 MG TAB PO SCH ×2 (07:45→21:00)
[2017-08-06] MEDS: LOSARTAN POTASSIUM 50 MG TAB PO SCH (07:45)
[2017-08-06] MEDS: SERTRALINE HCL 50 MG TAB PO SCH (07:45)
[2017-08-06] MEDS ORDERED: METOPROLOL SUCC 50MG EXT REL TAB PO SCH ×2 (09:00→21:00)
--- NOTE | 2017-08-06 11:23 | Orthopedic Progress Note ---
Orthopedic Progress Note Date of Service Aug 06, 2017. Subjective Reports: feeling well, Denies: complaints Additional Notes: Patient seen at bedside with nurse, resting comfortably, no acute issues. Patient less agitated today. Objective LLE: exam limited, patient does not follow commands, actively moving bilateral feet and toes +2DP pulse, CR < 2 seconds, compartments soft, NT. Abduction pillow in place, dressing CDI. Date Time Temp Pulse Resp B/P (MAP) Pulse Ox O2 Delivery O2 Flow Rate FiO2 08/06/17 10:54 37.1 114 20 105/71 (82) 100 Oxymask 4.0 08/06/17 10:21 99 Oxymask 4.0 08/06/17 08:31 Nasal Cannula 2.0 Oxymask 08/06/17 08:14 37.0 127 18 141/61 (87) 99 Oxymask 4.0 08/06/17 05:28 128 08/06/17 04:54 124 08/06/17 04:02 Nasal Cannula 2.0 Oxymask 08/06/17 03:50 36.6 120 22 125/82 (96) 100 Oxymask 4.0 08/06/17 02:44 118 08/06/17 01:39 128 132/84 (100) 08/06/17 01:32 131 08/06/17 00:30 112 08/06/17 00:00 Nasal Cannula 2.0 Oxymask 08/05/17 23:59 36.4 77 20 96/77 (83) 97 Nasal Cannula 2.0 08/05/17 20:00 Nasal Cannula 2.0 Oxymask 08/05/17 19:04 36.5 77 18 106/76 (86) 99 Nasal Cannula 2.0 08/05/17 16:40 Nasal Cannula 2.0 Oxymask 08/05/17 15:20 36.7 102 18 120/80 (93) 97 Nasal Cannula 2.0 08/05/17 12:47 Nasal Cannula 2.0 Oxymask Laboratory Results 24 Hours: Test 08/06/17 02:01 White Blood Count 6.86 K/uL Red Blood Count 3.41 M/uL Hemoglobin 10.0 g/dL Hematocrit 31.7 % Mean Corpuscular Volume 93.0 fL Mean Corpuscular Hemoglobin 29.3 pg Mean Corpuscular Hemoglobin Concent 31.5 g/dl Platelet Count 145 K/uL Mean Platelet Volume 11.3 fL Neutrophils (%) (Auto) 78.7 % Lymphocytes (%) (Auto) 8.2 % Monocytes (%) (Auto) 12.2 % Eosinophils (%) (Auto) 0.6 % Basophils (%) (Auto) 0.0 % Neutrophils # (Auto) 5.40 K/uL Lymphocytes # (Auto) 0.56 K/uL Monocytes # (Auto) 0.84 K/uL Eosinophils # (Auto) 0.04 K/uL Basophils # (Auto) 0.00 K/uL Assessment & Plan Assessment: s/p L Hip Hemiarthroplasty POD#2 Plan: -Hold narcotic pain medication secondary to confusion -WBAT LLE -PT/OT - when medically stable -Posterior hip precautions -Dressing change -DVT PPX - Eliquis and asa 81mg -Hgb - 10.0
[2017-08-06] MEDS ORDERED: METOPROLOL SUCC 25MG EXT REL TAB PO STA (12:56)
[2017-08-06] MEDS: METOPROLOL SUCC 50MG EXT REL TAB PO STA (12:56)
--- NOTE | 2017-08-06 13:35 | PROGRESS NOTE ---
DATE: 08/06/2017 The patient seen and examined. Chart, medications, telemetry reviewed. SUBJECTIVE: The patient appears more sedate. This morning, heart rates are still trending higher. Has received additional dose of IV metoprolol last night and earlier this morning. The patient denies any specific complaints. OBJECTIVE: VITAL SIGNS: Heart rate is 110. Blood pressure is 105/70. NECK: Thin. There is no jugular venous distention. LUNGS: Reveal mildly diminished breath sounds with poor inspiratory effort. CARDIOVASCULAR: Irregular, irregular. There is no S3 gallop. ABDOMEN: Soft, nontender. EXTREMITIES: Without cyanosis or clubbing. There is trace pedal edema. IMPRESSION: An 87-year-old female with history of chronic atrial fibrillation with elevated ventricular response rates, currently postoperatively after a fall and hip fracture. Pacemakers function appropriately. Review of findings notes chronically elevated atrial arrhythmia rates. PLAN: Titrate beta eleanor out further. Increasing metoprolol succinate to 75 mg twice per day, giving additional 25 mg p.o. now.
--- NOTE | 2017-08-06 16:49 | Progress Note ---
Medicine Progress Note Date & Time of Visit: Aug 06, 2017 at 16:11. Subjective Patient was sleeping, difficult to awaken, per staff the patient has not slept in 2 days and finally managed to fall asleep this AM. Patient does awaken but is still confused/disoriented, has poor PO intake. HR have been elevated and required IV metoprolol this AM. No other events noted. Objective Last 8 Hrs Date Time Temp Pulse Resp B/P (MAP) Pulse Ox O2 Delivery O2 Flow Rate FiO2 08/06/17 15:34 37.3 93 18 113/69 (84) 92 Room Air 08/06/17 12:24 Nasal Cannula 2.0 Oxymask 08/06/17 10:54 37.1 114 20 105/71 (82) 100 Oxymask 4.0 08/06/17 10:21 99 Oxymask 4.0 08/06/17 08:31 Nasal Cannula 2.0 Oxymask 08/06/17 08:14 37.0 127 18 141/61 (87) 99 Oxymask 4.0 Physical Exam: GENERAL: Patient is in no acute distress. Sleeping, awakens to aversive stimuli HEENT: No acute trauma, normocephalic, mucous membranes moist, no nasal congestion, no scleral icterus. NECK: No stridor, trachea is midline. LUNGS: Clear to auscultation bilaterally, no wheeze, no rhonchi, breath sounds equal. HEART: Without murmurs gallops or rubs, irregularly irregular ABDOMEN: Soft, nontender, bowel sounds positive EXTREMITIES: No cyanosis or edema, left thigh surgical bandage NEUROLOGIC: Drowsy, somnolent, no acute motor or sensory deficits, no focal weakness. SKIN: No rash, no jaundice, no diaphoresis. Laboratory Results: Last 24 Hours Test 08/06/17 02:01 White Blood Count 6.86 K/uL Red Blood Count 3.41 M/uL Hemoglobin 10.0 g/dL Hematocrit 31.7 % Mean Corpuscular Volume 93.0 fL Mean Corpuscular Hemoglobin 29.3 pg Mean Corpuscular Hemoglobin Concent 31.5 g/dl Platelet Count 145 K/uL Mean Platelet Volume 11.3 fL Neutrophils (%) (Auto) 78.7 % Lymphocytes (%) (Auto) 8.2 % Monocytes (%) (Auto) 12.2 % Eosinophils (%) (Auto) 0.6 % Basophils (%) (Auto) 0.0 % Neutrophils # (Auto) 5.40 K/uL Lymphocytes # (Auto) 0.56 K/uL Monocytes # (Auto) 0.84 K/uL Eosinophils # (Auto) 0.04 K/uL Basophils # (Auto) 0.00 K/uL RDW Standard Deviation 52.6 fL RDW Coefficient of Variation 15.4 % Immature Granulocyte % (Auto) 0.3 % Immature Granulocyte # (Auto) 0.02 K/uL Sodium Level 143 mmol/L Potassium Level 4.6 mmol/L Chloride Level 110 mmol/L Carbon Dioxide Level 27 mmol/L Anion Gap 6.0 mmol/L Blood Urea Nitrogen 19 mg/dl Creatinine 0.62 mg/dl Est Creatinine Clear Calc Drug Dose 48.9 ml/min Estimated GFR () 95.3 Estimated GFR (Non- 82.2 BUN/Creatinine Ratio 30.8 Random Glucose 119 mg/dl Calcium Level 8.4 mg/dl Magnesium Level 2.0 mg/dl Assessment & Plan LEFT HIP FRACTURE SECONDARY TO MECHANICAL FALL: -s/p left hip hemiarthroplasty POD#2 -opioid medications held due to worsening encephalopathy -Hb decreased to 10, likely related to post op anemia as no active bleeding noted -Ortho consulted, appreciate recommendations -therapy, activity as per Ortho orders CAD: -prior CABG, and previous PCI with stent -Cardiology evaluated the patient preop as well -TTE Report: -- Conclusions -- * The left ventricular cavity is small. * There is severe concentric left ventricular hypertrophy. * Left ventricular systolic function is normal. * The left ventricular wall motion is normal. * Ejection Fraction = 65-70%. * Diastolic dysfunction, Grade III (restrictive pattern), consistent with markedly increased left atrial pressure. * The left atrium is severely dilated. * There is mild mitral regurgitation. * There is moderate tricuspid regurgitation. * Right ventricular systolic pressure is elevated at 40-50mmHg. * There is a pacemaker lead in the right ventricle. -continued on ASA, Losartan, Metoprolol, Simvastatin ATRIAL FIBRILLATION: S/P pacemaker -has been in A fib with RVR -PM interrogation performed -Metoprolol held due to low BP/patient declines; was restarted yesterday and titrated up today per Cardio -resumed Eliquis and ASA as ok with Ortho -required PRN IV metoprolol last evening DEMENTIA: with ACUTE ENCEPHALOPATHY -had episodes of delirium overnight and early this AM -likely multifactorial: hospital delirium, s/p surgery, possibly from morphine -Morphine stopped--> PRN Ofirmev and Tramadol -continue donepezil -monitor DEPRESSION: -continue zoloft HTN: -continue home meds -monitor and titrate meds as needed HYPOTHYROIDISM: -TSH 7, free T4 normal, subclinical hypothyroidism -continue Lthyroxine GERD: -continue zantac DYSLIPIDEMIA: -previous lipid panel from 04/2017: total: 170, HDL:81, LDL: 74, Triglycerides: 74 -continue zocor and zetia Current Inpatient Medications: Current Inpatient Medications Medications (Trade) Dose Ordered Sig/Jyothi Route Start Time Stop Time Status Last Admin Dose Admin Morphine Sulfate (MoRPHine SULFATE INJ) 2 mg Q4 PRN IV 08/02/17 15:45 08/16/17 15:44 08/05/17 03:04 2 MG Naloxone HCl (Narcan Inj) 0.1 mg PRN PRN IV 08/02/17 15:45 09/01/17 15:44 Polyethylene (Miralax Powder Packet) 17 gm DAILY PRN PO 08/02/17 15:45 09/01/17 15:44 Magnesium Hydroxide (Milk Of Magnesia Susp) 30 ml DAILY PRN PO 08/02/17 15:45 09/01/17 15:44 Bisacodyl (Dulcolax Supp) 10 mg DAILY PRN AR 08/02/17 15:45 09/01/17 15:44 Sodium Biphosphate/ Sodium Phosphate (Fleet Enema) 132 ml PRN PRN AR 08/02/17 15:45 Miscellaneous (Iv Fluids Completed) 1 ea PRN PRN N/A 08/02/17 16:00 08/02/18 15:59 Donepezil HCl (Aricept Tab) 5 mg HS PO 08/02/17 21:00 09/01/17 20:59 08/02/17 21:36 5 MG EZETIMIBE (Zetia Tab) 10 mg DAILY PO 08/03/17 09:00 09/02/17 08:59 08/06/17 07:45 10 MG Levothyroxine Sodium (Synthroid Tab) 25 mcg DAILYBB PO 08/03/17 06:00 09/02/17 06:59 11/7/17 05:30 25 MCG Losartan Potassium (coZAAR TAB) 50 mg DAILY PO 08/03/17 09:00 09/02/17 08:59 08/06/17 07:45 50 MG Ranitidine HCl (zANTac TAB) 150 mg BID PO 08/02/17 21:00 09/01/17 20:59 08/06/17 07:45 150 MG Simvastatin (Zocor Tab) 40 mg QPM PO 08/02/17 21:00 09/01/17 20:59 08/05/17 20:38 40 MG Sertraline HCl (Zoloft Tab) 25 mg DAILY PO 08/03/17 09:00 09/02/17 08:59 08/06/17 07:45 25 MG Acetaminophen 100 ml @ 400 mls/hr Q8H PRN IV 08/03/17 16:30 09/02/17 16:29 08/03/17 17:44 400 MLS/HR Ondansetron HCl (Zofran Inj) 4 mg Q6H PRN IV 08/04/17 10:00 09/03/17 09:59 08/04/17 11:46 4 MG Acetaminophen (Tylenol Tab) 650 mg Q6H PRN PO 08/04/17 10:00 09/03/17 09:59 Oxycodone HCl (Roxicodone Immediate Rel Tab) 5 mg Q4H PRN PO 08/04/17 10:00 08/18/17 09:59 Menthol (Nice Ansley) 1 ansley Q2H PRN PO 08/04/17 10:00 09/03/17 09:59 Senna/Docusate Sodium (Senokot S Tab) 2 tab HS PO 08/04/17 21:00 09/03/17 20:59 Polyethylene (Miralax Powder Packet) 17 gm Q6 PO 08/06/17 06:00 09/05/17 05:59 08/06/17 11:55 17 GM Apixaban (Eliquis Tab) 2.5 mg BID PO 08/05/17 08:00 09/04/17 07:59 08/06/17 07:45 2.5 MG Aspirin (Ecotrin Tab) 81 mg QAM PO 08/05/17 09:00 09/04/17 08:59 08/06/17 07:45 81 MG Enalaprilat 0.625 mg/Dextrose 25.5 ml @ 100 mls/hr Q6H PRN IV 08/04/17 12:15 09/03/17 12:14 Tramadol HCl (Ultram Tab) 50 mg Q6H PRN PO 08/05/17 09:45 09/04/17 09:44 08/05/17 13:05 50 MG Metoprolol Succinate (Toprol Xl Tab) 75 mg BID PO 08/06/17 21:00 09/05/17 08:59
[2017-08-06] MEDS: METOPROLOL SUCC 50MG EXT REL TAB PO SCH (21:00)
[2017-08-06] MEDS: DONEPEZIL HCL 5 MG TAB PO SCH (21:00)
[2017-08-06] MEDS: SIMVASTATIN 40 MG TAB PO SCH (21:00)
[2017-08-06] MEDS: DOCUSATE SODIUM/SENNA 50/8.6MG TAB PO SCH (21:00)
[2017-08-07] VITALS (8 sets, daily range): BP systolic 125–158; BP diastolic 70–100; PULSE 88–140; TEMP 36.5–37.4; O2SAT 92–100
[2017-08-07] MEDS ORDERED: METOPROLOL TARTRATE 1 MG/ML VIAL ONE (03:52)
[2017-08-07] MEDS: LEVOTHYROXINE 25 MCG TAB PO SCH (05:49)
[2017-08-07] MEDS: POLYETHYLENE (MIRALAX) 17 GM PACK PO SCH ×5 (05:50→21:28)
[2017-08-07 06:36] LABS: CREATININE 0.44 mg/dl (0.60-1.20)
--- NOTE | 2017-08-07 07:40 | Orthopedic Progress Note ---
Orthopedic Progress Note Date of Service Aug 07, 2017. Subjective Additional Notes: No acute issues overnight, patient confused, denies pain. Objective LLE: exam limited, patient does not follow commands, actively moving bilateral feet and toes +2DP pulse, CR < 2 seconds, compartments soft, NT. Abduction pillow in place, dressing CDI. Date Time Temp Pulse Resp B/P (MAP) Pulse Ox O2 Delivery O2 Flow Rate FiO2 08/07/17 06:57 36.9 137 16 146/100 (115) 100 Humidified Oxygen 2.0 08/07/17 04:00 Oxymask 2.0 08/07/17 03:57 140 158/70 08/07/17 03:47 37.4 140 16 158/70 (99) 95 Oxymask 2.0 08/07/17 00:00 Oxymask 2.0 08/06/17 22:56 37.3 139 16 154/114 (127) 100 Oxymask 2.0 08/06/17 20:00 Oxymask 2.0 08/06/17 19:02 36.9 121 20 125/82 (96) 94 Room Air 08/06/17 16:00 Oxymask 2.0 08/06/17 15:34 37.3 93 18 113/69 (84) 92 Room Air 08/06/17 12:24 Nasal Cannula 2.0 Oxymask 08/06/17 10:54 37.1 114 20 105/71 (82) 100 Oxymask 4.0 08/06/17 10:21 99 Oxymask 4.0 08/06/17 08:31 Nasal Cannula 2.0 Oxymask 08/06/17 08:14 37.0 127 18 141/61 (87) 99 Oxymask 4.0 Assessment & Plan Assessment: s/p L Hip Hemiarthroplasty POD#2 Plan: -Hold narcotic pain medication secondary to confusion -WBAT LLE -PT/OT - when medically stable -Posterior hip precautions -Dressing change -DVT PPX - Eliquis and asa 81mg -Orthopedically stable, will sign off today, call with questions.
[2017-08-07] MEDS: APIXABAN 2.5 MG TAB PO SCH ×2 (07:50→21:28)
[2017-08-07] MEDS: LOSARTAN POTASSIUM 50 MG TAB PO SCH (07:51)
[2017-08-07] MEDS: ASPIRIN 81 MG ECTAB PO SCH (07:51)
[2017-08-07] MEDS: SERTRALINE HCL 50 MG TAB PO SCH (07:52)
[2017-08-07] MEDS: EZETIMIBE 10MG TAB PO SCH (07:52)
[2017-08-07] MEDS: RANITIDINE HCL 150 MG TAB PO SCH ×2 (07:52→21:28)
[2017-08-07] MEDS: METOPROLOL SUCC 50MG EXT REL TAB PO SCH ×2 (07:52→21:28)
[2017-08-07] MEDS: METOPROLOL TARTRATE 1 MG/ML VIAL IV PRN ×2 (08:17→14:04)
--- NOTE | 2017-08-07 09:18 | Cardiology Follow-Up ---
Subjective General Date of Service: Aug 07, 2017. Chief Complaint: hip fx; afib Pt evaluation today including: conversation w/ patient, physical exam, chart review, lab review, review of studies, review of inpatient medication list History of Present Illness Patient confused and mildly agitated. ROS not able to be performed. Telemetry reviewed - Atrial fibrillation with persistent elevated rates. Received toprol 75 mg daily and IV metoprolol this morning. Allergies Coded Allergies: No Known Allergies (Unverified , 08/02/17) Social History Smoking Status: Never Smoker Hx Tobacco Use In Past Year?: No Hx Alcohol Use - Type And Amou: No Hx Substance Use - Type And Am: No Problem List Medical Problems: (1) Hallucination Status: Acute Review of Systems Respiratory: + see HPI Cardiac: + see HPI Physical Exam Vital Signs Last Vital Signs Documentation Date Time Temp Pulse Resp B/P (MAP) Pulse Ox O2 Delivery O2 Flow Rate FiO2 08/07/17 08:17 135 147/84 08/07/17 06:57 36.9 16 100 Humidified Oxygen 2.0 Physical Exam Constitutional: Level of Distress: acutely ill, chronically ill Psychiatric: Mental Status: confused, agitated Lungs: Respiratory effort: good air movement Auscultation: no wheezing, no rales/crackles Cardiovascular: Heart Auscultation: tachycardia, II/ MAE, irregular rate rhythm Extremities: no edema Assessment and Plan Assessment and Plan 87-year-old female 1. Post op left hip hemiarthroplasty 2. Afib with RVR in the post op setting, chronic afib. -Increase Toprol to 100 mg BID today -Eliquis resumed 3. Hypothyroidism - treat 4. Dementia -? baseline -will need rehab/placement 5. PPM in situ - appropriate function per review of interrogation -persistently elevated ventricular rates noted. Case discussed with Dr. Cheng. Will follow. Patient personally seen, plan as above. Will increase Toprol as above noting need ofr consistent administration. Mariano Cheng MD Laboratory Results Last 24 Hours Test 08/07/17 05:20 Creatinine 0.44 mg/dl Est Creatinine Clear Calc Drug Dose 69.7 ml/min Estimated GFR () 106.7 Estimated GFR (Non- 92.0
[2017-08-07] MEDS ORDERED: METOPROLOL SUCC 25MG EXT REL TAB PO ONE (09:30)
[2017-08-07] MEDS: TRAMADOL HCL 50 MG TAB PO PRN (11:26)
--- NOTE | 2017-08-07 14:11 | Consultant Recommendations ---
Lip And Gate Builder Recommendations Date of Service Aug 07, 2017. Lip And Gate Builder Recommendations [facility] DISCHARGE INSTRUCTIONS: HIP FRACTURE SELF CARE INSTRUCTIONS: A. You are to ambulate with a walker or crutches for approximately 6 weeks. B. You are WEIGHT BEARING TOLERATE on your operative lower extremity for at least 6 weeks. C. Wear low heeled shoes with non-slip soles D. Be sure that your floors are free of things that could trip you throw rugs, electrical cords, and small objects. Avoid wet and waxed floors, especially with crutches/walker/cane. E. Try to walk several times a day with rest periods between. F. You may shower 48 hours after surgery and get the incision area wet, but DO NOT soak or submerge incision area in water. (No baths, swimming pools, hot tubs ) G. You may have a large, band-aid like dressing over your incision (Aquacel). This will remain on your incision for 7 days, and then can be removed. You CAN shower with this on. If incision is leaking through the dressing, please call the office . H. Do NOT apply soap or any ointment/lotions directly over incision. I. You may use ice as needed to operative site. SPECIAL CARE INSTRUCTIONS: VERY IMPORTANT TO READ AND REVIEW A. You may be at risk for phlebitis or blood clots. a. Wear surgical stockings (NYLA hose) for 2 weeks after surgery to improve circulation and reduce swelling. b. Take your home medication eliquis and aspirin as directed by your medical doctor. This is your blood thinner. c. If you are on Coumadin- you will have daily/weekly blood work to monitor your levels. This will be done by either your family physician/ sliding joint maker (if you are on Coumadin chronically) versus your orthopedic surgeon. Expect a phone call the day of or the day after your blood work is drawn to adjust your dose accordingly. B. There are a few signs you need to watch for after you are home. Call [facility] at [phone] if you experience any of the following: a. If you have a temperature of 101 degrees or higher. b. Sudden increase in pain in your hip not relieved by rest or pain medication. c. Any fluid or drainage from the incision; redness of the incision. d. Shortness of breath or chest pain. B. Please call [facility] at [phone] if you have any questions or concerns about your operation or recovery. C. Call your physician if: a. Temperature is greater than 101 degrees (F). b. Pain is not relieved by prescribed pain medications. c. Increase drainage or redness from incision. d. Unanswered questions or concerns. D. Pain Medication: a. You will be prescribed pain medication upon discharge that should last till your first post-operative appointment. b. If you experience nausea and/or skin rash, discontinue this medication and contact our office for an alternative medication. c. Caution- narcotic pain medication can cause constipation. FOLLOW UP VISIT: Please call [facility] at [phone] to schedule a follow up appointment 10-14 days from the date of your surgery date.
[2017-08-07] MEDS ORDERED: DIGOXIN 0.25 MG TAB PO ONE (17:15)
--- NOTE | 2017-08-07 19:05 | Progress Note ---
Medicine Progress Note Date & Time of Visit: Aug 07, 2017 at 19:05. Subjective Patient is awake but very confused, makes no eye contact, does not answer any questions, does not follow any commands. Appears to be staring at the ceiling and grabbing at the air and at her blankets. HR remained elevated overnight, required IV PRN lopressor. Objective Last 8 Hrs Date Time Temp Pulse Resp B/P (MAP) Pulse Ox O2 Delivery O2 Flow Rate FiO2 08/07/17 17:53 123 08/07/17 16:15 Nasal Cannula 2.0 Oxymask 08/07/17 16:01 36.5 120 23 142/86 (104) 93 Room Air 08/07/17 14:04 119 130/92 08/07/17 12:15 Nasal Cannula 2.0 Oxymask 08/07/17 11:10 131 26 125/95 (105) 96 Room Air Physical Exam: GENERAL: Patient is in no acute distress. Sleeping, awakens to aversive stimuli HEENT: No acute trauma, normocephalic, mucous membranes moist, no nasal congestion, no scleral icterus. NECK: No stridor, trachea is midline. LUNGS: Clear to auscultation bilaterally, no wheeze, no rhonchi, breath sounds equal. HEART: Without murmurs gallops or rubs, irregularly irregular ABDOMEN: Soft, nontender, bowel sounds positive EXTREMITIES: No cyanosis or edema, left thigh surgical bandage NEUROLOGIC: Drowsy, somnolent, no acute motor or sensory deficits, no focal weakness. SKIN: No rash, no jaundice, no diaphoresis. Laboratory Results: Last 24 Hours Test 08/07/17 05:20 Creatinine 0.44 mg/dl Est Creatinine Clear Calc Drug Dose 69.7 ml/min Estimated GFR () 106.7 Estimated GFR (Non- 92.0 Assessment & Plan LEFT HIP FRACTURE SECONDARY TO MECHANICAL FALL: -s/p left hip hemiarthroplasty POD#3 -opioid medications held due to worsening encephalopathy -Hb decreased to 10, likely related to post op anemia as no active bleeding noted -Ortho consulted, appreciate recommendations -therapy, activity as per Ortho orders CAD: -prior CABG, and previous PCI with stent -Cardiology evaluated the patient preop as well -TTE Report: -- Conclusions -- * The left ventricular cavity is small. * There is severe concentric left ventricular hypertrophy. * Left ventricular systolic function is normal. * The left ventricular wall motion is normal. * Ejection Fraction = 65-70%. * Diastolic dysfunction, Grade III (restrictive pattern), consistent with markedly increased left atrial pressure. * The left atrium is severely dilated. * There is mild mitral regurgitation. * There is moderate tricuspid regurgitation. * Right ventricular systolic pressure is elevated at 40-50mmHg. * There is a pacemaker lead in the right ventricle. -continued on ASA, Losartan, Metoprolol, Simvastatin ATRIAL FIBRILLATION: S/P pacemaker -has been in A fib with RVR -PM interrogation performed -Metoprolol held due to low BP/patient declines; was restarted yesterday and titrated up today per Cardio -resumed Eliquis and ASA as ok with Ortho -required PRN IV metoprolol last evening DEMENTIA: with ACUTE ENCEPHALOPATHY -continues to have confusion -likely multifactorial: hospital delirium, s/p surgery, possibly from morphine, no focal neurologic deficits -Morphine stopped--> PRN Ofirmev and Tramadol -continue donepezil -monitor DEPRESSION: -continue zoloft HTN: -continue home meds -monitor and titrate meds as needed HYPOTHYROIDISM: -TSH 7, free T4 normal, subclinical hypothyroidism -continue Lthyroxine GERD: -continue zantac DYSLIPIDEMIA: -previous lipid panel from 04/2017: total: 170, HDL:81, LDL: 74, Triglycerides: 74 -continue zocor and zetia Current Inpatient Medications: Current Inpatient Medications Medications (Trade) Dose Ordered Sig/Jyothi Route Start Time Stop Time Status Last Admin Dose Admin Naloxone HCl (Narcan Inj) 0.1 mg PRN PRN IV 08/02/17 15:45 09/01/17 15:44 Polyethylene (Miralax Powder Packet) 17 gm DAILY PRN PO 08/02/17 15:45 09/01/17 15:44 Magnesium Hydroxide (Milk Of Magnesia Susp) 30 ml DAILY PRN PO 08/02/17 15:45 09/01/17 15:44 Bisacodyl (Dulcolax Supp) 10 mg DAILY PRN [place] 08/02/17 15:45 09/01/17 15:44 Sodium Biphosphate/ Sodium Phosphate (Fleet Enema) 132 ml PRN PRN [place] 08/02/17 15:45 Miscellaneous (Iv Fluids Completed) 1 ea PRN PRN N/A 08/02/17 16:00 08/02/18 15:59 Donepezil HCl (Aricept Tab) 5 mg HS PO 08/02/17 21:00 09/01/17 20:59 08/02/17 21:36 5 MG EZETIMIBE (Zetia Tab) 10 mg DAILY PO 08/03/17 09:00 09/02/17 08:59 08/07/17 07:52 10 MG Levothyroxine Sodium (Synthroid Tab) 25 mcg DAILYBB PO 08/03/17 06:00 09/02/17 06:59 08/07/17 05:49 25 MCG Losartan Potassium (coZAAR TAB) 50 mg DAILY PO 08/03/17 09:00 09/02/17 08:59 08/07/17 07:51 50 MG Ranitidine HCl (zANTac TAB) 150 mg BID PO 08/02/17 21:00 09/01/17 20:59 08/07/17 07:52 150 MG Simvastatin (Zocor Tab) 40 mg QPM PO 08/02/17 21:00 09/01/17 20:59 08/05/17 20:38 40 MG Sertraline HCl (Zoloft Tab) 25 mg DAILY PO 08/03/17 09:00 09/02/17 08:59 08/07/17 07:52 25 MG Acetaminophen 100 ml @ 400 mls/hr Q8H PRN IV 08/03/17 16:30 09/02/17 16:29 08/03/17 17:44 400 MLS/HR Ondansetron HCl (Zofran Inj) 4 mg Q6H PRN IV 08/04/17 10:00 09/03/17 09:59 08/04/17 11:46 4 MG Acetaminophen (Tylenol Tab) 650 mg Q6H PRN PO 08/04/17 10:00 09/03/17 09:59 Menthol (Nice Ansley) 1 ansley Q2H PRN PO 08/04/17 10:00 09/03/17 09:59 Senna/Docusate Sodium (Senokot S Tab) 2 tab HS PO 08/04/17 21:00 09/03/17 20:59 Polyethylene (Miralax Powder Packet) 17 gm Q6 PO 08/06/17 06:00 09/05/17 05:59 08/07/17 14:04 17 GM Apixaban (Eliquis Tab) 2.5 mg BID PO 08/05/17 08:00 09/04/17 07:59 08/07/17 07:50 2.5 MG Aspirin (Ecotrin Tab) 81 mg QAM PO 08/05/17 09:00 09/04/17 08:59 08/07/17 07:51 81 MG Enalaprilat 0.625 mg/Dextrose 25.5 ml @ 100 mls/hr Q6H PRN IV 08/04/17 12:15 09/03/17 12:14 Tramadol HCl (Ultram Tab) 50 mg Q6H PRN PO 08/05/17 09:45 09/04/17 09:44 08/07/17 11:26 50 MG Metoprolol Tartrate (Lopressor Iv) 2.5 mg Q4 PRN IV 08/07/17 03:45 09/06/17 03:44 08/07/17 14:04 2.5 MG Metoprolol Succinate (Toprol Xl Tab) 100 mg BID PO 08/07/17 21:00 09/06/17 20:59
[2017-08-07] MEDS: SIMVASTATIN 40 MG TAB PO SCH (21:28)
[2017-08-07] MEDS: DONEPEZIL HCL 5 MG TAB PO SCH (21:28)
[2017-08-07] MEDS: DOCUSATE SODIUM/SENNA 50/8.6MG TAB PO SCH (21:28)
[2017-08-08] VITALS (12 sets, daily range): BP systolic 135–157; BP diastolic 84–99; PULSE 101–138; TEMP 36.3–37.2; O2SAT 93–96
[2017-08-08] MEDS: METOPROLOL TARTRATE 1 MG/ML VIAL IV PRN (00:39)
[2017-08-08] MEDS ORDERED: NURSING VERBAL MED ORDER ONE (03:30)
[2017-08-08] MEDS ORDERED: METOPROLOL TARTRATE 1 MG/ML VIAL IV ONE (03:45)
[2017-08-08] MEDS: LEVOTHYROXINE 25 MCG TAB PO SCH (05:39)
[2017-08-08] MEDS: POLYETHYLENE (MIRALAX) 17 GM PACK PO SCH ×3 (05:39→17:14)
[2017-08-08 06:05] LABS: HEMATOCRIT 31.1 % (37-47); MEAN CELL VOLUME 91.2 fL (80-100); MEAN CORPUSCULAR HEMOGLOBIN 29.3 pg (25-34); MEAN CORPUSCULAR HGB CONC 32.2 g/dl (32-36); MEAN PLATELET VOLUME 10.9 fL (7.4-10.4); PLATELET COUNT 196 K/uL (130-400); RED BLOOD COUNT 3.41 M/uL (4.2-5.4); WHITE BLOOD COUNT 6.27 K/uL (4.8-10.8)
[2017-08-08 06:53] LABS: BUN/CREATININE RATIO 34.9 (10-20); CALCIUM 8.2 mg/dl (8.5-10.1); CREATININE 0.48 mg/dl (0.60-1.20); POTASSIUM 3.6 mmol/L (3.5-5.1)
[2017-08-08] MEDS: METOPROLOL SUCC 50MG EXT REL TAB PO SCH ×2 (07:56→22:11)
[2017-08-08] MEDS: SERTRALINE HCL 50 MG TAB PO SCH (07:56)
[2017-08-08] MEDS: LOSARTAN POTASSIUM 50 MG TAB PO SCH (07:56)
[2017-08-08] MEDS: RANITIDINE HCL 150 MG TAB PO SCH ×2 (07:56→22:10)
[2017-08-08] MEDS: EZETIMIBE 10MG TAB PO SCH (07:56)
[2017-08-08] MEDS: ASPIRIN 81 MG ECTAB PO SCH (07:57)
[2017-08-08] MEDS: APIXABAN 2.5 MG TAB PO SCH ×2 (07:57→22:10)
[2017-08-08] MEDS ORDERED: DIGOXIN 0.25 MG TAB PO ONE (09:30)
--- NOTE | 2017-08-08 10:21 | Cardiology Follow-Up ---
Subjective General Date of Service: Aug 08, 2017. Chief Complaint: hip fx; afib Pt evaluation today including: physical exam, chart review, lab review, review of studies, review of inpatient medication list History of Present Illness Patient confused. ROS not able to be performed. Telemetry reviewed - Afib with RVR, rates ranging 110-150 bpm Allergies Coded Allergies: No Known Allergies (Unverified , 08/02/17) Social History Smoking Status: Never Smoker Hx Tobacco Use In Past Year?: No Hx Alcohol Use - Type And Amou: No Hx Substance Use - Type And Am: No Problem List Medical Problems: (1) Hallucination Status: Acute Review of Systems Respiratory: + see HPI Cardiac: + see HPI Physical Exam Vital Signs Last Vital Signs Documentation Date Time Temp Pulse Resp B/P (MAP) Pulse Ox O2 Delivery O2 Flow Rate FiO2 08/08/17 08:15 36.3 124 18 140/87 (104) 96 Room Air 08/07/17 16:15 2.0 Physical Exam Constitutional: Level of Distress: acutely ill, chronically ill Psychiatric: Mental Status: lethargic, confused Lungs: Respiratory effort: good air movement Auscultation: no wheezing, no rales/crackles Cardiovascular: Heart Auscultation: tachycardia, II/ MAE, irregular rate rhythm Extremities: no edema Assessment and Plan Assessment and Plan 87-year-old female 1. Post op left hip hemiarthroplasty 2. Afib with RVR in the post op setting, chronic afib. -Toprol to 100 mg BID -Digoxin added 0.25 mg BID today, then 0.125 mg daily tomorrow -Eliquis resumed 3. Hypothyroidism - treat 4. Dementia -? baseline -will need rehab/placement 5. PPM in situ - appropriate function per review of interrogation -persistently elevated ventricular rates noted. Case discussed with Dr. Cheng. Will follow. Patient seen and examined, plan as outlined. Mariano Cheng MD Laboratory Results Last 24 Hours Test 08/08/17 05:54 White Blood Count 6.27 K/uL Red Blood Count 3.41 M/uL Hemoglobin 10.0 g/dL Hematocrit 31.1 % Mean Corpuscular Volume 91.2 fL Mean Corpuscular Hemoglobin 29.3 pg Mean Corpuscular Hemoglobin Concent 32.2 g/dl RDW Standard Deviation 49.2 fL RDW Coefficient of Variation 14.8 % Platelet Count 196 K/uL Mean Platelet Volume 10.9 fL Sodium Level 141 mmol/L Potassium Level 3.6 mmol/L Chloride Level 108 mmol/L Carbon Dioxide Level 27 mmol/L Anion Gap 6.0 mmol/L Blood Urea Nitrogen 17 mg/dl Creatinine 0.48 mg/dl Est Creatinine Clear Calc Drug Dose 63.0 ml/min Estimated GFR () 103.7 Estimated GFR (Non- 89.4 BUN/Creatinine Ratio 34.9 Random Glucose 124 mg/dl Calcium Level 8.2 mg/dl
[2017-08-08] MEDS ORDERED: DIGOXIN 0.25 MG TAB PO SCH (16:00)
--- NOTE | 2017-08-08 18:42 | Progress Note ---
Medicine Progress Note Date & Time of Visit: Aug 08, 2017 at 18:42. Subjective Patient is more awake and calm today, she was visited by family earlier today per staff. Still does not answer questions, was not verbal during my assessment. PO intake improved. Overnight HRs were elevated and was given lopressor IV. No other events noted. Objective Last 8 Hrs Date Time Temp Pulse Resp B/P (MAP) Pulse Ox O2 Delivery O2 Flow Rate FiO2 08/08/17 17:14 119 08/08/17 16:00 Room Air 08/08/17 15:50 36.8 119 22 145/88 (107) 95 Room Air 08/08/17 12:00 Room Air 08/08/17 11:27 37.2 130 16 135/84 (101) 96 Room Air Physical Exam: GENERAL: Patient is in no acute distress. Awake, looking around, makes eye contact HEENT: No acute trauma, normocephalic, mucous membranes moist, no nasal congestion, no scleral icterus. NECK: No stridor, trachea is midline. LUNGS: Clear to auscultation bilaterally, no wheeze, no rhonchi, breath sounds equal. HEART: Without murmurs gallops or rubs, irregularly irregular ABDOMEN: Soft, nontender, bowel sounds positive EXTREMITIES: No cyanosis or edema, left thigh surgical bandage NEUROLOGIC: Not following commands but witnessed moving all extremities, no acute motor or sensory deficits, no focal weakness. SKIN: No rash, no jaundice, no diaphoresis. Laboratory Results: Last 24 Hours Test 08/08/17 05:54 White Blood Count 6.27 K/uL Red Blood Count 3.41 M/uL Hemoglobin 10.0 g/dL Hematocrit 31.1 % Mean Corpuscular Volume 91.2 fL Mean Corpuscular Hemoglobin 29.3 pg Mean Corpuscular Hemoglobin Concent 32.2 g/dl RDW Standard Deviation 49.2 fL RDW Coefficient of Variation 14.8 % Platelet Count 196 K/uL Mean Platelet Volume 10.9 fL Sodium Level 141 mmol/L Potassium Level 3.6 mmol/L Chloride Level 108 mmol/L Carbon Dioxide Level 27 mmol/L Anion Gap 6.0 mmol/L Blood Urea Nitrogen 17 mg/dl Creatinine 0.48 mg/dl Est Creatinine Clear Calc Drug Dose 63.0 ml/min Estimated GFR () 103.7 Estimated GFR (Non- 89.4 BUN/Creatinine Ratio 34.9 Random Glucose 124 mg/dl Calcium Level 8.2 mg/dl Assessment & Plan LEFT HIP FRACTURE SECONDARY TO MECHANICAL FALL: -s/p left hip hemiarthroplasty POD#4 -opioid medications held due to worsening encephalopathy -Hb decreased to 10, likely related to post op anemia as no active bleeding noted -Ortho consulted, appreciate recommendations -therapy, activity as per Ortho orders CAD: -prior CABG, and previous PCI with stent -Cardiology evaluated the patient preop as well -TTE Report: -- Conclusions -- * The left ventricular cavity is small. * There is severe concentric left ventricular hypertrophy. * Left ventricular systolic function is normal. * The left ventricular wall motion is normal. * Ejection Fraction = 65-70%. * Diastolic dysfunction, Grade III (restrictive pattern), consistent with markedly increased left atrial pressure. * The left atrium is severely dilated. * There is mild mitral regurgitation. * There is moderate tricuspid regurgitation. * Right ventricular systolic pressure is elevated at 40-50mmHg. * There is a pacemaker lead in the right ventricle. -continued on ASA, Losartan, Metoprolol, Simvastatin ATRIAL FIBRILLATION: S/P pacemaker -has been in A fib with RVR -PM interrogation performed, appropriate -Metoprolol held due to low BP/patient declines; titrated up again today per Cardio -digoxin was also added this admission -resumed Eliquis and ASA as ok with Ortho -required PRN IV metoprolol last evening again -HR 100-130 DEMENTIA: with ACUTE ENCEPHALOPATHY -continues to have confusion -likely multifactorial: hospital delirium, s/p surgery, possibly from morphine, no focal neurologic deficits -Morphine stopped--> PRN Ofirmev and Tramadol -continue donepezil -monitor -seems more calm today but still not answering questions or following commands -vitals and labs and clinical exam not suspicious for infection but will check urine DEPRESSION: -continue zoloft HTN: -continue home meds -monitor and titrate meds as needed HYPOTHYROIDISM: -TSH 7, free T4 normal, subclinical hypothyroidism -continue Lthyroxine GERD: -continue zantac DYSLIPIDEMIA: -previous lipid panel from 04/2017: total: 170, HDL:81, LDL: 74, Triglycerides: 74 -continue zocor and zetia Current Inpatient Medications: Current Inpatient Medications Medications (Trade) Dose Ordered Sig/Jyothi Route Start Time Stop Time Status Last Admin Dose Admin Naloxone HCl (Narcan Inj) 0.1 mg PRN PRN IV 08/02/17 15:45 09/01/17 15:44 Polyethylene (Miralax Powder Packet) 17 gm DAILY PRN PO 08/02/17 15:45 09/01/17 15:44 Magnesium Hydroxide (Milk Of Magnesia Susp) 30 ml DAILY PRN PO 08/02/17 15:45 09/01/17 15:44 Bisacodyl (Dulcolax Supp) 10 mg DAILY PRN [place] 08/02/17 15:45 09/01/17 15:44 Sodium Biphosphate/ Sodium Phosphate (Fleet Enema) 132 ml PRN PRN [place] 08/02/17 15:45 Miscellaneous (Iv Fluids Completed) 1 ea PRN PRN N/A 08/02/17 16:00 08/02/18 15:59 Donepezil HCl (Aricept Tab) 5 mg HS PO 08/02/17 21:00 09/01/17 20:59 08/07/17 21:28 5 MG EZETIMIBE (Zetia Tab) 10 mg DAILY PO 08/03/17 09:00 09/02/17 08:59 08/08/17 07:56 10 MG Levothyroxine Sodium (Synthroid Tab) 25 mcg DAILYBB PO 08/03/17 06:00 09/02/17 06:59 08/08/17 05:39 25 MCG Losartan Potassium (coZAAR TAB) 50 mg DAILY PO 08/03/17 09:00 09/02/17 08:59 08/08/17 07:56 50 MG Ranitidine HCl (zANTac TAB) 150 mg BID PO 08/02/17 21:00 09/01/17 20:59 08/08/17 07:56 150 MG Simvastatin (Zocor Tab) 40 mg QPM PO 08/02/17 21:00 09/01/17 20:59 08/07/17 21:28 40 MG Sertraline HCl (Zoloft Tab) 25 mg DAILY PO 08/03/17 09:00 09/02/17 08:59 08/08/17 07:56 25 MG Acetaminophen 100 ml @ 400 mls/hr Q8H PRN IV 08/03/17 16:30 09/02/17 16:29 08/03/17 17:44 400 MLS/HR Ondansetron HCl (Zofran Inj) 4 mg Q6H PRN IV 08/04/17 10:00 09/03/17 09:59 08/04/17 11:46 4 MG Acetaminophen (Tylenol Tab) 650 mg Q6H PRN PO 08/04/17 10:00 09/03/17 09:59 Menthol (Nice Ansley) 1 ansley Q2H PRN PO 08/04/17 10:00 09/03/17 09:59 Senna/Docusate Sodium (Senokot S Tab) 2 tab HS PO 08/04/17 21:00 09/03/17 20:59 08/07/17 21:28 2 TAB Polyethylene (Miralax Powder Packet) 17 gm Q6 PO 08/06/17 06:00 09/05/17 05:59 08/08/17 17:14 17 GM Apixaban (Eliquis Tab) 2.5 mg BID PO 08/05/17 08:00 09/04/17 07:59 08/08/17 07:57 2.5 MG Aspirin (Ecotrin Tab) 81 mg QAM PO 08/05/17 09:00 09/04/17 08:59 08/08/17 07:57 81 MG Enalaprilat 0.625 mg/Dextrose 25.5 ml @ 100 mls/hr Q6H PRN IV 08/04/17 12:15 09/03/17 12:14 Tramadol HCl (Ultram Tab) 50 mg Q6H PRN PO 08/05/17 09:45 09/04/17 09:44 08/07/17 11:26 50 MG Metoprolol Tartrate (Lopressor Iv) 2.5 mg Q4 PRN IV 08/07/17 03:45 09/06/17 03:44 08/08/17 00:39 2.5 MG Metoprolol Succinate (Toprol Xl Tab) 100 mg BID PO 08/07/17 21:00 09/06/17 20:59 08/08/17 07:56 100 MG Digoxin (Lanoxin Tab) 0.25 mg DAILY@16 PO 08/08/17 16:00 09/07/17 15:59 08/08/17 17:14 0.25 MG Digoxin (Lanoxin Tab) 0.125 mg QAM PO 08/09/17 09:00 09/08/17 08:59
[2017-08-08] MEDS: SIMVASTATIN 40 MG TAB PO SCH (22:10)
[2017-08-08] MEDS: DONEPEZIL HCL 5 MG TAB PO SCH (22:10)
[2017-08-08] MEDS: DOCUSATE SODIUM/SENNA 50/8.6MG TAB PO SCH (22:10)
[2017-08-09] VITALS (8 sets, daily range): BP systolic 132–156; BP diastolic 79–99; PULSE 95–117; TEMP 36.4–37.2; O2SAT 95–97
[2017-08-09] MEDS: POLYETHYLENE (MIRALAX) 17 GM PACK PO SCH ×4 (06:10→18:00)
[2017-08-09] MEDS: LEVOTHYROXINE 25 MCG TAB PO SCH (06:10)
[2017-08-09] MEDS: SERTRALINE HCL 50 MG TAB PO SCH (07:41)
[2017-08-09] MEDS: EZETIMIBE 10MG TAB PO SCH (07:41)
[2017-08-09] MEDS: ASPIRIN 81 MG ECTAB PO SCH (07:41)
[2017-08-09] MEDS: LOSARTAN POTASSIUM 50 MG TAB PO SCH (07:41)
[2017-08-09] MEDS: METOPROLOL SUCC 50MG EXT REL TAB PO SCH ×2 (07:42→19:46)
[2017-08-09] MEDS: DIGOXIN 0.125 MG TAB PO SCH (07:42)
[2017-08-09] MEDS: APIXABAN 2.5 MG TAB PO SCH ×2 (07:42→19:45)
[2017-08-09] MEDS: RANITIDINE HCL 150 MG TAB PO SCH ×2 (07:43→19:46)
[2017-08-09] MEDS ORDERED: DIGOXIN 0.125 MG TAB PO ONE (08:15)
--- NOTE | 2017-08-09 10:25 | Cardiology Follow-Up ---
Subjective General Date of Service: Aug 09, 2017. Chief Complaint: hip fx; afib Pt evaluation today including: conversation w/ patient, physical exam, chart review, lab review, review of studies, review of inpatient medication list History of Present Illness Patient more awake and alert today. Answering questions appropriately. Denies chest pain or SOB. No hip pain currently. No sense of palpitations or tachypalpitations. No dizziness. Allergies Coded Allergies: No Known Allergies (Unverified , 08/02/17) Social History Smoking Status: Never Smoker Hx Tobacco Use In Past Year?: No Hx Alcohol Use - Type And Amou: No Hx Substance Use - Type And Am: No Problem List Medical Problems: (1) Hallucination Status: Acute Review of Systems Respiratory: No cough, No sputum, No wheezing, No shortness of breath, No dyspnea at rest, No hemoptysis Cardiac: No chest pain, No orthopnea, No PND, No edema, No palpitations Physical Exam Vital Signs Last Vital Signs Documentation Date Time Temp Pulse Resp B/P (MAP) Pulse Ox O2 Delivery O2 Flow Rate FiO2 08/09/17 08:50 116 08/09/17 08:00 Room Air 08/09/17 08:00 36.4 18 136/93 (107) 95 08/07/17 16:15 2.0 Physical Exam Constitutional: Level of Distress: NAD, acutely ill, chronically ill Psychiatric: Mental Status: active & alert Head: normocephalic Eyes: Pupils: PERRLA Lungs: Respiratory effort: good air movement Auscultation: no wheezing, no rales/crackles Cardiovascular: Heart Auscultation: tachycardia, II/ MAE, irregular rate rhythm Extremities: no edema Assessment and Plan Assessment and Plan 87-year-old female 1. Post op left hip hemiarthroplasty 2. Afib with RVR in the post op setting, chronic afib. -Toprol to 100 mg BID -Digoxin added. Additional dose of 0.25 mg this AM. -Continue digoxin 0.125 mg daily. -rates improving. 3. Hypothyroidism - treat 4. Dementia -? baseline -will need rehab/placement 5. PPM in situ - appropriate function per review of interrogation -persistently elevated ventricular rates noted. Case discussed with Dr. Cheng. Will follow. Patient seen and examined, plan as above. Patient much more alert today, heart rates improving. May go off monitor Mariano Cheng MD
[2017-08-09] MEDS ORDERED: QUETIAPINE FUMARATE 25 MG TAB PO ONE (17:15)
--- NOTE | 2017-08-09 18:37 | Progress Note ---
Medicine Progress Note Date & Time of Visit: Aug 09, 2017 at 18:37. Subjective Patient is pleasant, awake, and cooperative today. Has been eating well. No overnight events noted. Has not need 1:1. Denies any complaints. She is confused but is able to recall some events with cues and does recall visits from her family. Paged later in the evening that the patient has become uncooperative and has been cursing and throwing objects. 1:1 back in the room, difficult to reorient the patient. Objective Last 8 Hrs Date Time Temp Pulse Resp B/P (MAP) Pulse Ox O2 Delivery O2 Flow Rate FiO2 08/09/17 16:00 Room Air 08/09/17 15:03 37.2 106 22 143/99 (114) 95 Room Air 08/09/17 12:02 36.8 103 20 139/97 (111) 96 08/09/17 12:00 Room Air Physical Exam: GENERAL: Patient is in no acute distress. Awake, looking around, makes eye contact HEENT: No acute trauma, normocephalic, mucous membranes moist, no nasal congestion, no scleral icterus. NECK: No stridor, trachea is midline. LUNGS: Clear to auscultation bilaterally, no wheeze, no rhonchi, breath sounds equal. HEART: Without murmurs gallops or rubs, irregularly irregular ABDOMEN: Soft, nontender, bowel sounds positive EXTREMITIES: No cyanosis or edema, left thigh with dressing, leg abductor present NEUROLOGIC: Moving all extremities, no acute motor or sensory deficits, no focal weakness. SKIN: No rash, no jaundice, no diaphoresis. Assessment & Plan LEFT HIP FRACTURE SECONDARY TO MECHANICAL FALL: -s/p left hip hemiarthroplasty POD#5 -opioid medications held due to worsening encephalopathy -Hb decreased to 10, likely related to post op anemia as no active bleeding noted -Ortho consulted, appreciate recommendations -therapy, activity as per Ortho orders CAD: -prior CABG, and previous PCI with stent -Cardiology evaluated the patient preop as well -TTE Report: -- Conclusions -- * The left ventricular cavity is small. * There is severe concentric left ventricular hypertrophy. * Left ventricular systolic function is normal. * The left ventricular wall motion is normal. * Ejection Fraction = 65-70%. * Diastolic dysfunction, Grade III (restrictive pattern), consistent with markedly increased left atrial pressure. * The left atrium is severely dilated. * There is mild mitral regurgitation. * There is moderate tricuspid regurgitation. * Right ventricular systolic pressure is elevated at 40-50mmHg. * There is a pacemaker lead in the right ventricle. -continued on ASA, Losartan, Metoprolol, Simvastatin ATRIAL FIBRILLATION: S/P pacemaker -has been in A fib with RVR -PM interrogation performed, appropriate -Metoprolol held due to low BP/patient declines; titrated up again today per Cardio -digoxin was also added this admission -resumed Eliquis and ASA as ok with Ortho -required PRN IV metoprolol last evening again -HR 100-130 DEMENTIA: with ACUTE ENCEPHALOPATHY/DELIRIUM -continues to have confusion intermittently and sometimes is at baseline -likely multifactorial: hospital delirium, s/p surgery, possibly from morphine, no focal neurologic deficits -Morphine stopped--> PRN Ofirmev and Tramadol -continue donepezil -monitor -at baseline today -vitals and labs and clinical exam not suspicious for infection but can check urine to rule out -have added seroquel PRN qHS DEPRESSION: -continue zoloft HTN: -continue home meds -monitor and titrate meds as needed HYPOTHYROIDISM: -TSH 7, free T4 normal, subclinical hypothyroidism -continue Lthyroxine GERD: -continue zantac DYSLIPIDEMIA: -previous lipid panel from 04/2017: total: 170, HDL:81, LDL: 74, Triglycerides: 74 -continue zocor and zetia Current Inpatient Medications: Current Inpatient Medications Medications (Trade) Dose Ordered Sig/Jyothi Route Start Time Stop Time Status Last Admin Dose Admin Naloxone HCl (Narcan Inj) 0.1 mg PRN PRN IV 08/02/17 15:45 09/01/17 15:44 Polyethylene (Miralax Powder Packet) 17 gm DAILY PRN PO 08/02/17 15:45 09/01/17 15:44 Magnesium Hydroxide (Milk Of Magnesia Susp) 30 ml DAILY PRN PO 08/02/17 15:45 09/01/17 15:44 Bisacodyl (Dulcolax Supp) 10 mg DAILY PRN [place] 08/02/17 15:45 09/01/17 15:44 Sodium Biphosphate/ Sodium Phosphate (Fleet Enema) 132 ml PRN PRN [place] 08/02/17 15:45 Miscellaneous (Iv Fluids Completed) 1 ea PRN PRN N/A 08/02/17 16:00 08/02/18 15:59 Donepezil HCl (Aricept Tab) 5 mg HS PO 08/02/17 21:00 09/01/17 20:59 08/08/17 22:10 5 MG EZETIMIBE (Zetia Tab) 10 mg DAILY PO 08/03/17 09:00 09/02/17 08:59 08/09/17 07:41 10 MG Levothyroxine Sodium (Synthroid Tab) 25 mcg DAILYBB PO 08/03/17 06:00 09/02/17 06:59 08/09/17 06:10 25 MCG Losartan Potassium (coZAAR TAB) 50 mg DAILY PO 08/03/17 09:00 09/02/17 08:59 08/09/17 07:41 50 MG Ranitidine HCl (zANTac TAB) 150 mg BID PO 08/02/17 21:00 09/01/17 20:59 08/09/17 07:43 150 MG Simvastatin (Zocor Tab) 40 mg QPM PO 08/02/17 21:00 09/01/17 20:59 08/08/17 22:10 40 MG Sertraline HCl (Zoloft Tab) 25 mg DAILY PO 08/03/17 09:00 09/02/17 08:59 08/09/17 07:41 25 MG Acetaminophen 100 ml @ 400 mls/hr Q8H PRN IV 08/03/17 16:30 09/02/17 16:29 08/03/17 17:44 400 MLS/HR Ondansetron HCl (Zofran Inj) 4 mg Q6H PRN IV 08/04/17 10:00 09/03/17 09:59 08/04/17 11:46 4 MG Acetaminophen (Tylenol Tab) 650 mg Q6H PRN PO 08/04/17 10:00 09/03/17 09:59 Menthol (Nice Ansley) 1 ansley Q2H PRN PO 08/04/17 10:00 09/03/17 09:59 Senna/Docusate Sodium (Senokot S Tab) 2 tab HS PO 08/04/17 21:00 09/03/17 20:59 08/08/17 22:10 2 TAB Polyethylene (Miralax Powder Packet) 17 gm Q6 PO 08/06/17 06:00 09/05/17 05:59 08/09/17 14:02 17 GM Apixaban (Eliquis Tab) 2.5 mg BID PO 08/05/17 08:00 09/04/17 07:59 08/09/17 07:42 2.5 MG Aspirin (Ecotrin Tab) 81 mg QAM PO 08/05/17 09:00 09/04/17 08:59 08/09/17 07:41 81 MG Enalaprilat 0.625 mg/Dextrose 25.5 ml @ 100 mls/hr Q6H PRN IV 08/04/17 12:15 09/03/17 12:14 Tramadol HCl (Ultram Tab) 50 mg Q6H PRN PO 08/05/17 09:45 09/04/17 09:44 08/07/17 11:26 50 MG Metoprolol Tartrate (Lopressor Iv) 2.5 mg Q4 PRN IV 08/07/17 03:45 09/06/17 03:44 08/08/17 00:39 2.5 MG Metoprolol Succinate (Toprol Xl Tab) 100 mg BID PO 08/07/17 21:00 09/06/17 20:59 08/09/17 07:42 100 MG Digoxin (Lanoxin Tab) 0.125 mg QAM PO 08/09/17 09:00 09/08/17 08:59 08/09/17 07:42 0.125 MG
[2017-08-09] MEDS: DONEPEZIL HCL 5 MG TAB PO SCH (19:45)
[2017-08-09] MEDS: SIMVASTATIN 40 MG TAB PO SCH (19:47)
[2017-08-09] MEDS: DOCUSATE SODIUM/SENNA 50/8.6MG TAB PO SCH (19:47)
[2017-08-09] MEDS: QUETIAPINE FUMARATE 25 MG TAB PO SCH (21:16)
[2017-08-10] VITALS: O2SAT 96
[2017-08-10] MEDS: POLYETHYLENE (MIRALAX) 17 GM PACK PO SCH ×4 (00:20→18:24)
[2017-08-10] MEDS: LEVOTHYROXINE 25 MCG TAB PO SCH (05:57)
[2017-08-10 08:24] VITALS: BP 135/71; PULSE 103; TEMP 36.5; O2SAT 93
[2017-08-10] MEDS: DIGOXIN 0.125 MG TAB PO SCH ×2 (09:00→13:12)
[2017-08-10] MEDS: EZETIMIBE 10MG TAB PO SCH (09:00)
[2017-08-10] MEDS: RANITIDINE HCL 150 MG TAB PO SCH ×2 (09:00→22:01)
[2017-08-10] MEDS: ASPIRIN 81 MG ECTAB PO SCH ×2 (09:00→13:10)
[2017-08-10] MEDS: SERTRALINE HCL 50 MG TAB PO SCH (09:00)
[2017-08-10] MEDS: METOPROLOL SUCC 50MG EXT REL TAB PO SCH ×3 (09:00→22:13)
[2017-08-10] MEDS: LOSARTAN POTASSIUM 50 MG TAB PO SCH ×2 (09:00→13:11)
[2017-08-10] MEDS: APIXABAN 2.5 MG TAB PO SCH ×3 (09:00→22:00)
[2017-08-10 10:16] LABS: CREATININE 0.49 mg/dl (0.60-1.20)
[2017-08-10 12:25] VITALS: BP 122/75; PULSE 91; TEMP 36.7; O2SAT 95
--- NOTE | 2017-08-10 13:57 | Progress Note ---
Medicine Progress Note Date & Time of Visit: Aug 10, 2017 at 13:57. Subjective Patient is confused and is refusing everything. Refused AM meds and any PO intake. Unable to reorient or redirect despite multiple attempts. Overnight was confused and combative and a 1:[address]. Patient refuses anything is wrong and states she is going to leave. Objective Last 8 Hrs Date Time Temp Pulse Resp B/P (MAP) Pulse Ox O2 Delivery O2 Flow Rate FiO2 08/10/17 13:12 90 08/10/17 12:25 36.7 91 16 122/75 (91) 95 Room Air 08/10/17 08:24 36.5 103 16 135/71 (92) 93 Room Air 08/10/17 07:40 Room Air Physical Exam: GENERAL: Patient is in no acute distress. Awake, looking around, makes eye contact HEENT: No acute trauma, normocephalic, mucous membranes moist, no nasal congestion, no scleral icterus. NECK: No stridor, trachea is midline. LUNGS: patient refused HEART: patient refused ABDOMEN: patient refused EXTREMITIES: patient refused NEUROLOGIC: Moving all extremities, no acute motor or sensory deficits, no focal weakness. SKIN: patient refused Laboratory Results: Last 24 Hours Test 08/10/17 09:28 Creatinine 0.49 mg/dl Est Creatinine Clear Calc Drug Dose 61.6 ml/min Estimated GFR () 103.0 Estimated GFR (Non- 88.8 Assessment & Plan LEFT HIP FRACTURE SECONDARY TO MECHANICAL FALL: -s/p left hip hemiarthroplasty POD#6 -opioid medications held due to worsening encephalopathy -Hb decreased to 10, holding stable; likely related to post op anemia as no active bleeding noted -Ortho consulted, appreciate recommendations -therapy, activity as per Ortho orders CAD: -prior CABG, and previous PCI with stent -Cardiology evaluated the patient preop as well -TTE Report: -- Conclusions -- * The left ventricular cavity is small. * There is severe concentric left ventricular hypertrophy. * Left ventricular systolic function is normal. * The left ventricular wall motion is normal. * Ejection Fraction = 65-70%. * Diastolic dysfunction, Grade III (restrictive pattern), consistent with markedly increased left atrial pressure. * The left atrium is severely dilated. * There is mild mitral regurgitation. * There is moderate tricuspid regurgitation. * Right ventricular systolic pressure is elevated at 40-50mmHg. * There is a pacemaker lead in the right ventricle. -continued on ASA, Losartan, Metoprolol, Simvastatin ATRIAL FIBRILLATION: S/P pacemaker -has been in A fib with RVR -PM interrogation performed, appropriate -Metoprolol held due to low BP/patient declines; titrated up again today per Cardio -digoxin was also added this admission -resumed Eliquis and ASA as ok with Ortho -required PRN IV metoprolol last evening again -HR 100-130 DEMENTIA: with ACUTE ENCEPHALOPATHY/DELIRIUM -continues to have confusion intermittently and sometimes is at baseline -likely multifactorial: hospital delirium, s/p surgery, possibly from morphine, no focal neurologic deficits -Morphine and tramadol stopped -continue donepezil -monitor -again today the patient is confused, delirious -have added seroquel PRN qHS DEPRESSION: -continue zoloft HTN: -continue home meds -monitor and titrate meds as needed HYPOTHYROIDISM: -TSH 7, free T4 normal, subclinical hypothyroidism -continue L-thyroxine GERD: -continue zantac DYSLIPIDEMIA: -previous lipid panel from 04/2017: total: 170, HDL:81, LDL: 74, Triglycerides: 74 -continue zocor and zetia Current Inpatient Medications: Current Inpatient Medications Medications (Trade) Dose Ordered Sig/Jyothi Route Start Time Stop Time Status Last Admin Dose Admin Naloxone HCl (Narcan Inj) 0.1 mg PRN PRN IV 08/02/17 15:45 09/01/17 15:44 Polyethylene (Miralax Powder Packet) 17 gm DAILY PRN PO 08/02/17 15:45 09/01/17 15:44 Magnesium Hydroxide (Milk Of Magnesia Susp) 30 ml DAILY PRN PO 08/02/17 15:45 09/01/17 15:44 Bisacodyl (Dulcolax Supp) 10 mg DAILY PRN [place] 08/02/17 15:45 09/01/17 15:44 Sodium Biphosphate/ Sodium Phosphate (Fleet Enema) 132 ml PRN PRN [place] 08/02/17 15:45 Miscellaneous (Iv Fluids Completed) 1 ea PRN PRN N/A 08/02/17 16:00 08/02/18 15:59 Donepezil HCl (Aricept Tab) 5 mg HS PO 08/02/17 21:00 09/01/17 20:59 08/09/17 19:45 5 MG EZETIMIBE (Zetia Tab) 10 mg DAILY PO 08/03/17 09:00 09/02/17 08:59 08/09/17 07:41 10 MG Levothyroxine Sodium (Synthroid Tab) 25 mcg DAILYBB PO 08/03/17 06:00 09/02/17 06:59 08/10/17 05:57 25 MCG Losartan Potassium (coZAAR TAB) 50 mg DAILY PO 08/03/17 09:00 09/02/17 08:59 08/10/17 13:11 50 MG Ranitidine HCl (zANTac TAB) 150 mg BID PO 08/02/17 21:00 09/01/17 20:59 08/09/17 19:46 150 MG Simvastatin (Zocor Tab) 40 mg QPM PO 08/02/17 21:00 09/01/17 20:59 08/09/17 19:47 40 MG Sertraline HCl (Zoloft Tab) 25 mg DAILY PO 08/03/17 09:00 09/02/17 08:59 08/09/17 07:41 25 MG Acetaminophen 100 ml @ 400 mls/hr Q8H PRN IV 08/03/17 16:30 09/02/17 16:29 08/03/17 17:44 400 MLS/HR Ondansetron HCl (Zofran Inj) 4 mg Q6H PRN IV 08/04/17 10:00 09/03/17 09:59 08/04/17 11:46 4 MG Acetaminophen (Tylenol Tab) 650 mg Q6H PRN PO 08/04/17 10:00 09/03/17 09:59 Menthol (Nice Ansley) 1 ansley Q2H PRN PO 08/04/17 10:00 09/03/17 09:59 Senna/Docusate Sodium (Senokot S Tab) 2 tab HS PO 08/04/17 21:00 09/03/17 20:59 08/09/17 19:47 2 TAB Polyethylene (Miralax Powder Packet) 17 gm Q6 PO 08/06/17 06:00 09/05/17 05:59 08/10/17 11:36 17 GM Apixaban (Eliquis Tab) 2.5 mg BID PO 08/05/17 08:00 09/04/17 07:59 08/10/17 13:11 2.5 MG Aspirin (Ecotrin Tab) 81 mg QAM PO 08/05/17 09:00 09/04/17 08:59 08/10/17 13:10 81 MG Enalaprilat 0.625 mg/Dextrose 25.5 ml @ 100 mls/hr Q6H PRN IV 08/04/17 12:15 09/03/17 12:14 Tramadol HCl (Ultram Tab) 50 mg Q6H PRN PO 08/05/17 09:45 09/04/17 09:44 08/07/17 11:26 50 MG Metoprolol Tartrate (Lopressor Iv) 2.5 mg Q4 PRN IV 08/07/17 03:45 09/06/17 03:44 08/08/17 00:39 2.5 MG Metoprolol Succinate (Toprol Xl Tab) 100 mg BID PO 08/07/17 21:00 09/06/17 20:59 08/10/17 13:11 100 MG Digoxin (Lanoxin Tab) 0.125 mg QAM PO 08/09/17 09:00 09/08/17 08:59 08/10/17 13:12 0.125 MG Quetiapine Fumarate (seroQUEL TAB) 12.5 mg HS PO 08/09/17 21:00 09/08/17 20:59 08/09/17 21:16 12.5 MG
[2017-08-10 15:04] VITALS: BP 138/74; PULSE 100; TEMP 36.6; O2SAT 93
[2017-08-10] MEDS: QUETIAPINE FUMARATE 25 MG TAB PO SCH (22:03)
[2017-08-10] MEDS: DONEPEZIL HCL 5 MG TAB PO SCH (22:03)
[2017-08-10] MEDS: SIMVASTATIN 40 MG TAB PO SCH (22:06)
[2017-08-10] MEDS: DOCUSATE SODIUM/SENNA 50/8.6MG TAB PO SCH (22:13)
[2017-08-10 23:22] VITALS: BP 132/82; TEMP 35.9; O2SAT 95
[2017-08-11] MEDS: POLYETHYLENE (MIRALAX) 17 GM PACK PO SCH ×5 (06:00→23:31)
[2017-08-11] MEDS: LEVOTHYROXINE 25 MCG TAB PO SCH (06:42)
[2017-08-11 07:03] VITALS: BP 124/80; PULSE 97; TEMP 36; O2SAT 93
[2017-08-11] MEDS: METOPROLOL SUCC 50MG EXT REL TAB PO SCH ×2 (10:01→20:21)
[2017-08-11] MEDS: LOSARTAN POTASSIUM 50 MG TAB PO SCH (10:01)
[2017-08-11] MEDS: ASPIRIN 81 MG ECTAB PO SCH (10:02)
[2017-08-11] MEDS: DIGOXIN 0.125 MG TAB PO SCH (10:02)
[2017-08-11] MEDS: RANITIDINE HCL 150 MG TAB PO SCH ×2 (10:03→20:18)
[2017-08-11] MEDS: SERTRALINE HCL 50 MG TAB PO SCH (10:04)
[2017-08-11] MEDS: EZETIMIBE 10MG TAB PO SCH (10:04)
[2017-08-11] MEDS: APIXABAN 2.5 MG TAB PO SCH ×2 (10:05→20:18)
[2017-08-11 15:00] VITALS: BP 131/85; PULSE 97; TEMP 36.7; O2SAT 93
--- NOTE | 2017-08-11 15:04 | Progress Note ---
Medicine Progress Note Date & Time of Visit: Aug 11, 2017 at 15:02. Subjective Patient remains confused, she denies any complaints but is still not oriented except to self. No overnight events noted. Has been refusing PO intermittently. Did not require a 1:1 for much of the day but becomes much more combative in the evening/night. Objective Last 8 Hrs Date Time Temp Pulse Resp B/P (MAP) Pulse Ox O2 Delivery O2 Flow Rate FiO2 08/11/17 10:02 84 08/11/17 08:00 Room Air 08/11/17 07:03 36.0 97 18 124/80 (95) 93 Room Air Physical Exam: GENERAL: Patient is in no acute distress. HEENT: No acute trauma, normocephalic, mucous membranes moist, no nasal congestion, no scleral icterus. NECK: No stridor, trachea is midline. LUNGS: Clear to auscultation bilaterally, no wheeze, no rhonchi, breath sounds equal. HEART: Without murmurs gallops or rubs, irregularly irregular ABDOMEN: Soft, nontender, bowel sounds positive EXTREMITIES: No cyanosis or edema, left thigh with dressing NEUROLOGIC: Moving all extremities, no acute motor or sensory deficits, no focal weakness. SKIN: No rash, no jaundice, no diaphoresis. Assessment & Plan LEFT HIP FRACTURE SECONDARY TO MECHANICAL FALL: -s/p left hip hemiarthroplasty POD#7 -opioid medications held due to worsening encephalopathy -Hb decreased to 10, holding stable; likely related to post op anemia as no active bleeding noted, recheck labs in AM -Ortho consulted, appreciate recommendations -therapy, activity as per Ortho orders CAD: -prior CABG, and previous PCI with stent -Cardiology evaluated the patient preop as well -TTE Report: -- Conclusions -- * The left ventricular cavity is small. * There is severe concentric left ventricular hypertrophy. * Left ventricular systolic function is normal. * The left ventricular wall motion is normal. * Ejection Fraction = 65-70%. * Diastolic dysfunction, Grade III (restrictive pattern), consistent with markedly increased left atrial pressure. * The left atrium is severely dilated. * There is mild mitral regurgitation. * There is moderate tricuspid regurgitation. * Right ventricular systolic pressure is elevated at 40-50mmHg. * There is a pacemaker lead in the right ventricle. -continued on ASA, Losartan, Metoprolol, Simvastatin ATRIAL FIBRILLATION: S/P pacemaker -has been in A fib with RVR -PM interrogation performed, appropriate -Metoprolol held due to low BP/patient declines; titrated up again today per Cardio -digoxin was also added this admission -resumed Eliquis and ASA as ok with Ortho -required PRN IV metoprolol last evening again -HR better controlled DEMENTIA: with ACUTE ENCEPHALOPATHY/DELIRIUM -continues to have confusion intermittently and sometimes is at baseline -likely multifactorial: hospital delirium, s/p surgery, no focal neurologic deficits, unlikely medications as this would have resolved by now -Morphine and tramadol stopped -continue donepezil -monitor -patient continues to be confused, delirious, and hallucinating -have added seroquel PRN qHS DEPRESSION: -continue zoloft HTN: -continue home meds -monitor and titrate meds as needed HYPOTHYROIDISM: -TSH 7, free T4 normal, subclinical hypothyroidism -continue L-thyroxine GERD: -continue zantac DYSLIPIDEMIA: -previous lipid panel from 04/2017: total: 170, HDL:81, LDL: 74, Triglycerides: 74 -continue zocor and zetia Current Inpatient Medications: Current Inpatient Medications Medications (Trade) Dose Ordered Sig/Jyothi Route Start Time Stop Time Status Last Admin Dose Admin Naloxone HCl (Narcan Inj) 0.1 mg PRN PRN IV 08/02/17 15:45 09/01/17 15:44 Polyethylene (Miralax Powder Packet) 17 gm DAILY PRN PO 08/02/17 15:45 09/01/17 15:44 Magnesium Hydroxide (Milk Of Magnesia Susp) 30 ml DAILY PRN PO 08/02/17 15:45 09/01/17 15:44 Bisacodyl (Dulcolax Supp) 10 mg DAILY PRN [place] 08/02/17 15:45 09/01/17 15:44 Sodium Biphosphate/ Sodium Phosphate (Fleet Enema) 132 ml PRN PRN [place] 08/02/17 15:45 Miscellaneous (Iv Fluids Completed) 1 ea PRN PRN N/A 08/02/17 16:00 08/02/18 15:59 Donepezil HCl (Aricept Tab) 5 mg HS PO 08/02/17 21:00 09/01/17 20:59 08/10/17 22:03 5 MG EZETIMIBE (Zetia Tab) 10 mg DAILY PO 08/03/17 09:00 09/02/17 08:59 08/11/17 10:04 10 MG Levothyroxine Sodium (Synthroid Tab) 25 mcg DAILYBB PO 08/03/17 06:00 09/02/17 06:59 08/11/17 06:42 25 MCG Losartan Potassium (coZAAR TAB) 50 mg DAILY PO 08/03/17 09:00 09/02/17 08:59 08/11/17 10:01 50 MG Ranitidine HCl (zANTac TAB) 150 mg BID PO 08/02/17 21:00 09/01/17 20:59 08/11/17 10:03 150 MG Simvastatin (Zocor Tab) 40 mg QPM PO 08/02/17 21:00 09/01/17 20:59 08/10/17 22:06 40 MG Sertraline HCl (Zoloft Tab) 25 mg DAILY PO 08/03/17 09:00 09/02/17 08:59 08/11/17 10:04 25 MG Acetaminophen 100 ml @ 400 mls/hr Q8H PRN IV 08/03/17 16:30 09/02/17 16:29 08/03/17 17:44 400 MLS/HR Ondansetron HCl (Zofran Inj) 4 mg Q6H PRN IV 08/04/17 10:00 09/03/17 09:59 08/04/17 11:46 4 MG Acetaminophen (Tylenol Tab) 650 mg Q6H PRN PO 08/04/17 10:00 09/03/17 09:59 Menthol (Nice Ansley) 1 ansley Q2H PRN PO 08/04/17 10:00 09/03/17 09:59 Senna/Docusate Sodium (Senokot S Tab) 2 tab HS PO 08/04/17 21:00 09/03/17 20:59 08/10/17 22:13 2 TAB Polyethylene (Miralax Powder Packet) 17 gm Q6 PO 08/06/17 06:00 09/05/17 05:59 08/10/17 18:24 17 GM Apixaban (Eliquis Tab) 2.5 mg BID PO 08/05/17 08:00 09/04/17 07:59 08/11/17 10:05 2.5 MG Aspirin (Ecotrin Tab) 81 mg QAM PO 08/05/17 09:00 09/04/17 08:59 08/11/17 10:02 81 MG Enalaprilat 0.625 mg/Dextrose 25.5 ml @ 100 mls/hr Q6H PRN IV 08/04/17 12:15 09/03/17 12:14 Tramadol HCl (Ultram Tab) 50 mg Q6H PRN PO 08/05/17 09:45 09/04/17 09:44 08/07/17 11:26 50 MG Metoprolol Tartrate (Lopressor Iv) 2.5 mg Q4 PRN IV 08/07/17 03:45 09/06/17 03:44 08/08/17 00:39 2.5 MG Metoprolol Succinate (Toprol Xl Tab) 100 mg BID PO 08/07/17 21:00 09/06/17 20:59 08/11/17 10:01 100 MG Digoxin (Lanoxin Tab) 0.125 mg QAM PO 08/09/17 09:00 09/08/17 08:59 08/11/17 10:02 0.125 MG Quetiapine Fumarate (seroQUEL TAB) 12.5 mg HS PO 08/09/17 21:00 09/08/17 20:59 08/10/17 22:03 12.5 MG
[2017-08-11 16:00] VITALS: O2SAT 93
[2017-08-11 20:00] VITALS: BP 119/83; PULSE 98
[2017-08-11] MEDS: SIMVASTATIN 40 MG TAB PO SCH (20:19)
[2017-08-11] MEDS: DONEPEZIL HCL 5 MG TAB PO SCH (20:19)
[2017-08-11] MEDS: DOCUSATE SODIUM/SENNA 50/8.6MG TAB PO SCH (20:20)
[2017-08-11] MEDS: QUETIAPINE FUMARATE 25 MG TAB PO SCH (20:21)
[2017-08-11 23:48] VITALS: BP 127/88; PULSE 100; TEMP 36.2; O2SAT 95
[2017-08-12] MEDS: POLYETHYLENE (MIRALAX) 17 GM PACK PO SCH ×3 (06:00→17:33)
[2017-08-12] MEDS: LEVOTHYROXINE 25 MCG TAB PO SCH ×2 (06:30→06:35)
[2017-08-12 08:09] VITALS: BP 156/79; PULSE 90; TEMP 36.7
[2017-08-12 08:55] VITALS: PULSE 95; O2SAT 95
[2017-08-12] MEDS: APIXABAN 2.5 MG TAB PO SCH ×2 (11:31→20:53)
[2017-08-12] MEDS: LOSARTAN POTASSIUM 50 MG TAB PO SCH (11:31)
[2017-08-12] MEDS: METOPROLOL SUCC 50MG EXT REL TAB PO SCH ×2 (11:31→20:58)
[2017-08-12] MEDS: DIGOXIN 0.125 MG TAB PO SCH (11:31)
[2017-08-12] MEDS: EZETIMIBE 10MG TAB PO SCH (11:32)
[2017-08-12] MEDS: ASPIRIN 81 MG ECTAB PO SCH (11:32)
[2017-08-12] MEDS: RANITIDINE HCL 150 MG TAB PO SCH ×2 (11:32→20:53)
[2017-08-12] MEDS: SERTRALINE HCL 50 MG TAB PO SCH (11:33)
[2017-08-12 12:06] LABS: HEMATOCRIT 38.7 % (37-47); MEAN CELL VOLUME 90.2 fL (80-100); MEAN CORPUSCULAR HEMOGLOBIN 30.1 pg (25-34); MEAN CORPUSCULAR HGB CONC 33.3 g/dl (32-36); MEAN PLATELET VOLUME 9.9 fL (7.4-10.4); PLATELET COUNT 352 K/uL (130-400); RED BLOOD COUNT 4.29 M/uL (4.2-5.4); WHITE BLOOD COUNT 8.76 K/uL (4.8-10.8)
[2017-08-12 12:41] LABS: BUN/CREATININE RATIO 33.5 (10-20); CALCIUM 8.4 mg/dl (8.5-10.1); CREATININE 0.6 mg/dl (0.60-1.20); POTASSIUM 3.9 mmol/L (3.5-5.1)
[2017-08-12 14:18] LABS: URINE APPEARANCE CLOUDY (CLEAR); URINE COLOR DK YELLOW; URINE NITRITE NEG (NEG); URINE SPECIFIC GRAVITY 1.027 (1.000-1.030); UROBILINOGEN NEG (NEG); ZZURINE CULT IF INDIC CATH YES
[2017-08-12 14:25] LABS: MANUAL MICROSCOPIC REQUIRED? NO; REVIEW REQ? NO; URINE BILIRUBIN NEG (NEG)
[2017-08-12 15:39] VITALS: BP 146/88; PULSE 81; TEMP 36.5; O2SAT 96
[2017-08-12] MEDS ORDERED: CEFTRIAXONE SOD INJ 1 GM in DEXTROSE 5% ADD-VANTAGE 50ML 50 ML IV SCH (17:00)
--- NOTE | 2017-08-12 17:31 | Progress Note ---
Medicine Progress Note Date & Time of Visit: Aug 12, 2017 at 17:31. Subjective Patient remains confused, has been refusing to eat or drink today; managed to take medications but not willing to eat. Continues to have hallucinations and talks to individuals who are not in the room. No overnight events noted. Patient denies any complaints. Patient disoriented. Spoke to the patients nephew Guicho Espino and updated him on the general condition. Objective Last 8 Hrs Date Time Temp Pulse Resp B/P (MAP) Pulse Ox O2 Delivery O2 Flow Rate FiO2 08/12/17 16:00 Room Air 08/12/17 15:39 36.5 81 20 146/88 (107) 96 Room Air 08/12/17 11:31 95 Physical Exam: GENERAL: Patient is in no acute distress. HEENT: No acute trauma, normocephalic, mucous membranes moist, no nasal congestion, no scleral icterus. NECK: No stridor, trachea is midline. LUNGS: Clear to auscultation bilaterally, no wheeze, no rhonchi, breath sounds equal. HEART: Without murmurs gallops or rubs, irregularly irregular ABDOMEN: Soft, nontender, bowel sounds positive EXTREMITIES: No cyanosis or edema, left thigh incision intact NEUROLOGIC: Moving all extremities, no acute motor or sensory deficits, no focal weakness. SKIN: No rash, no jaundice, no diaphoresis. Laboratory Results: Last 24 Hours Test 08/12/17 12:00 08/12/17 13:15 White Blood Count 8.76 K/uL Red Blood Count 4.29 M/uL Hemoglobin 12.9 g/dL Hematocrit 38.7 % Mean Corpuscular Volume 90.2 fL Mean Corpuscular Hemoglobin 30.1 pg Mean Corpuscular Hemoglobin Concent 33.3 g/dl RDW Standard Deviation 47.6 fL RDW Coefficient of Variation 14.8 % Platelet Count 352 K/uL Mean Platelet Volume 9.9 fL Sodium Level 141 mmol/L Potassium Level 3.9 mmol/L Chloride Level 106 mmol/L Carbon Dioxide Level 21 mmol/L Anion Gap 14.0 mmol/L Blood Urea Nitrogen 20 mg/dl Creatinine 0.60 mg/dl Est Creatinine Clear Calc Drug Dose 50.3 ml/min Estimated GFR () 96.3 Estimated GFR (Non- 83.1 BUN/Creatinine Ratio 33.5 Random Glucose 85 mg/dl Calcium Level 8.4 mg/dl Urine Color DK YELLOW Urine Appearance CLOUDY Urine pH 5.0 Urine Specific [place] 1.027 Urine Protein NEG Urine Glucose (UA) NEG Urine Ketones 1+ Urine Occult Blood 3+ Urine Nitrite NEG Urine Bilirubin NEG Urine Urobilinogen NEG Urine Leukocyte Esterase MODERATE Urine WBC (Auto) 10-30 /hpf Urine RBC (Auto) >30 /hpf Urine Hyaline Casts (Auto) 5-10 /lpf Urine Epithelial Cells (Auto) 5-10 /lpf Urine Bacteria (Auto) 1+ Date/Time Source Procedure Growth Status 08/12/17 13:15 Urine,Catheterized Urine Culture Pending Received Assessment & Plan LEFT HIP FRACTURE SECONDARY TO MECHANICAL FALL: -s/p left hip hemiarthroplasty POD#7 -opioid medications held due to worsening encephalopathy -Hb decreased to 10, holding stable; likely related to post op anemia as no active bleeding noted, recheck labs in AM -Ortho consulted, appreciate recommendations -therapy, activity as per Ortho orders CAD: -prior CABG, and previous PCI with stent -Cardiology evaluated the patient preop as well -TTE Report: -- Conclusions -- * The left ventricular cavity is small. * There is severe concentric left ventricular hypertrophy. * Left ventricular systolic function is normal. * The left ventricular wall motion is normal. * Ejection Fraction = 65-70%. * Diastolic dysfunction, Grade III (restrictive pattern), consistent with markedly increased left atrial pressure. * The left atrium is severely dilated. * There is mild mitral regurgitation. * There is moderate tricuspid regurgitation. * Right ventricular systolic pressure is elevated at 40-50mmHg. * There is a pacemaker lead in the right ventricle. -continued on ASA, Losartan, Metoprolol, Simvastatin ATRIAL FIBRILLATION: S/P pacemaker -has been in A fib with RVR -PM interrogation performed, appropriate -Metoprolol held due to low BP/patient declines; titrated up again today per Cardio -digoxin was also added this admission -resumed Eliquis and ASA as ok with Ortho -required PRN IV metoprolol last evening again -HR better controlled DEMENTIA: with ACUTE ENCEPHALOPATHY/DELIRIUM -continues to have confusion intermittently and sometimes is at baseline -likely multifactorial: hospital delirium, s/p surgery, no focal neurologic deficits, unlikely medications as this would have resolved by now -Morphine and tramadol stopped -continue donepezil -monitor -patient continues to be confused, delirious, and hallucinating -have added seroquel PRN qHS -check urine culture, may need antibiotics if cultures are positive DEPRESSION: -continue zoloft HTN: -continue home meds -monitor and titrate meds as needed HYPOTHYROIDISM: -TSH 7, free T4 normal, subclinical hypothyroidism -continue L-thyroxine GERD: -continue zantac DYSLIPIDEMIA: -previous lipid panel from 04/2017: total: 170, HDL:81, LDL: 74, Triglycerides: 74 -continue zocor and zetia Current Inpatient Medications: Current Inpatient Medications Medications (Trade) Dose Ordered Sig/Jyothi Route Start Time Stop Time Status Last Admin Dose Admin Naloxone HCl (Narcan Inj) 0.1 mg PRN PRN IV 08/02/17 15:45 09/01/17 15:44 Polyethylene (Miralax Powder Packet) 17 gm DAILY PRN PO 08/02/17 15:45 09/01/17 15:44 Magnesium Hydroxide (Milk Of Magnesia Susp) 30 ml DAILY PRN PO 08/02/17 15:45 09/01/17 15:44 Bisacodyl (Dulcolax Supp) 10 mg DAILY PRN [place] 08/02/17 15:45 09/01/17 15:44 Sodium Biphosphate/ Sodium Phosphate (Fleet Enema) 132 ml PRN PRN [place] 08/02/17 15:45 Miscellaneous (Iv Fluids Completed) 1 ea PRN PRN N/A 08/02/17 16:00 08/02/18 15:59 Donepezil HCl (Aricept Tab) 5 mg HS PO 08/02/17 21:00 09/01/17 20:59 08/11/17 20:19 5 MG EZETIMIBE (Zetia Tab) 10 mg DAILY PO 08/03/17 09:00 09/02/17 08:59 08/12/17 11:32 10 MG Levothyroxine Sodium (Synthroid Tab) 25 mcg DAILYBB PO 08/03/17 06:00 09/02/17 06:59 08/11/17 06:42 25 MCG Losartan Potassium (coZAAR TAB) 50 mg DAILY PO 08/03/17 09:00 09/02/17 08:59 08/12/17 11:31 50 MG Ranitidine HCl (zANTac TAB) 150 mg BID PO 08/02/17 21:00 09/01/17 20:59 08/12/17 11:32 150 MG Simvastatin (Zocor Tab) 40 mg QPM PO 08/02/17 21:00 09/01/17 20:59 08/11/17 20:19 40 MG Sertraline HCl (Zoloft Tab) 25 mg DAILY PO 08/03/17 09:00 09/02/17 08:59 08/12/17 11:33 25 MG Acetaminophen 100 ml @ 400 mls/hr Q8H PRN IV 08/03/17 16:30 09/02/17 16:29 08/03/17 17:44 400 MLS/HR Ondansetron HCl (Zofran Inj) 4 mg Q6H PRN IV 08/04/17 10:00 09/03/17 09:59 08/04/17 11:46 4 MG Acetaminophen (Tylenol Tab) 650 mg Q6H PRN PO 08/04/17 10:00 09/03/17 09:59 08/11/17 16:39 650 MG Menthol (Nice Dieudonne) 1 dieudonne Q2H PRN PO 08/04/17 10:00 09/03/17 09:59 Senna/Docusate Sodium (Senokot S Tab) 2 tab HS PO 08/04/17 21:00 09/03/17 20:59 08/10/17 22:13 2 TAB Polyethylene (Miralax Powder Packet) 17 gm Q6 PO 08/06/17 06:00 09/05/17 05:59 08/10/17 18:24 17 GM Apixaban (Eliquis Tab) 2.5 mg BID PO 08/05/17 08:00 09/04/17 07:59 08/12/17 11:31 2.5 MG Aspirin (Ecotrin Tab) 81 mg QAM PO 08/05/17 09:00 09/04/17 08:59 08/12/17 11:32 81 MG Enalaprilat 0.625 mg/Dextrose 25.5 ml @ 100 mls/hr Q6H PRN IV 08/04/17 12:15 09/03/17 12:14 Tramadol HCl (Ultram Tab) 50 mg Q6H PRN PO 08/05/17 09:45 09/04/17 09:44 08/07/17 11:26 50 MG Metoprolol Tartrate (Lopressor Iv) 2.5 mg Q4 PRN IV 08/07/17 03:45 09/06/17 03:44 08/08/17 00:39 2.5 MG Metoprolol Succinate (Toprol Xl Tab) 100 mg BID PO 08/07/17 21:00 09/06/17 20:59 08/12/17 11:31 100 MG Digoxin (Lanoxin Tab) 0.125 mg QAM PO 08/09/17 09:00 09/08/17 08:59 08/12/17 11:31 0.125 MG Quetiapine Fumarate (seroQUEL TAB) 12.5 mg HS PO 08/09/17 21:00 09/08/17 20:59 08/11/17 20:21 12.5 MG
[2017-08-12 20:00] VITALS: O2SAT 93
[2017-08-12] MEDS: DONEPEZIL HCL 5 MG TAB PO SCH (20:52)
[2017-08-12] MEDS: SIMVASTATIN 40 MG TAB PO SCH (20:53)
[2017-08-12] MEDS: QUETIAPINE FUMARATE 25 MG TAB PO SCH (20:54)
[2017-08-12] MEDS: DOCUSATE SODIUM/SENNA 50/8.6MG TAB PO SCH (20:55)
[2017-08-12 23:28] VITALS: BP 137/69; PULSE 90; TEMP 36.5; O2SAT 90
[2017-08-13 01:00] VITALS: O2SAT 93
[2017-08-13] MEDS: POLYETHYLENE (MIRALAX) 17 GM PACK PO SCH ×2 (01:11→06:00)
[2017-08-13] MEDS: LEVOTHYROXINE 25 MCG TAB PO SCH (06:28)
[2017-08-13 07:37] VITALS: BP 98/79; PULSE 86; TEMP 36.6; O2SAT 96
[2017-08-13 08:35] LABS: CREATININE 0.42 mg/dl (0.60-1.20)
[2017-08-13] MEDS: DIGOXIN 0.125 MG TAB PO SCH (09:43)
[2017-08-13] MEDS: EZETIMIBE 10MG TAB PO SCH (09:43)
[2017-08-13] MEDS: ASPIRIN 81 MG ECTAB PO SCH (09:43)
[2017-08-13] MEDS: APIXABAN 2.5 MG TAB PO SCH ×2 (09:43→21:14)
[2017-08-13] MEDS: RANITIDINE HCL 150 MG TAB PO SCH ×2 (09:44→21:00)
[2017-08-13] MEDS: SERTRALINE HCL 50 MG TAB PO SCH (09:44)
[2017-08-13] MEDS: LOSARTAN POTASSIUM 50 MG TAB PO SCH (09:45)
[2017-08-13] MEDS: METOPROLOL SUCC 50MG EXT REL TAB PO SCH ×2 (09:45→20:58)
[2017-08-13] MEDS ORDERED: NURSING VERBAL MED ORDER ONE (12:30)
--- NOTE | 2017-08-13 13:51 | Progress Note ---
Subjective Date of Service: Aug 13, 2017. Subjective Pt evaluation today including: conversation w/ family, physical exam, lab review, review of studies, review of inpatient medication list Saw/examined the patient in room 263 she is doing okay, nephew is in the room I gave him an update on patient's urinary tract infection She is lethargic, staring in space; not eating much food. Problem List Medical Problems: (1) Hallucination Status: Acute Review of Systems difficult to obtain due to patient's condition Medications Current Inpatient Medications Medications (Trade) Dose Ordered Sig/Jyothi Route Start Time Stop Time Status Last Admin Dose Admin Naloxone HCl (Narcan Inj) 0.1 mg PRN PRN IV 08/02/17 15:45 09/01/17 15:44 Polyethylene (Miralax Powder Packet) 17 gm DAILY PRN PO 08/02/17 15:45 09/01/17 15:44 Magnesium Hydroxide (Milk Of Magnesia Susp) 30 ml DAILY PRN PO 08/02/17 15:45 09/01/17 15:44 Bisacodyl (Dulcolax Supp) 10 mg DAILY PRN [place] 08/02/17 15:45 09/01/17 15:44 Sodium Biphosphate/ Sodium Phosphate (Fleet Enema) 132 ml PRN PRN [place] 08/02/17 15:45 Miscellaneous (Iv Fluids Completed) 1 ea PRN PRN N/A 08/02/17 16:00 08/02/18 15:59 Donepezil HCl (Aricept Tab) 5 mg HS PO 08/02/17 21:00 09/01/17 20:59 08/12/17 20:52 5 MG EZETIMIBE (Zetia Tab) 10 mg DAILY PO 08/03/17 09:00 09/02/17 08:59 08/13/17 09:43 10 MG Levothyroxine Sodium (Synthroid Tab) 25 mcg DAILYBB PO 08/03/17 06:00 09/02/17 06:59 08/13/17 06:28 25 MCG Losartan Potassium (coZAAR TAB) 50 mg DAILY PO 08/03/17 09:00 09/02/17 08:59 08/12/17 11:31 50 MG Ranitidine HCl (zANTac TAB) 150 mg BID PO 08/02/17 21:00 09/01/17 20:59 08/13/17 09:44 150 MG Simvastatin (Zocor Tab) 40 mg QPM PO 08/02/17 21:00 09/01/17 20:59 08/12/17 20:53 40 MG Sertraline HCl (Zoloft Tab) 25 mg DAILY PO 08/03/17 09:00 09/02/17 08:59 08/13/17 09:44 25 MG Acetaminophen 100 ml @ 400 mls/hr Q8H PRN IV 08/03/17 16:30 09/02/17 16:29 08/03/17 17:44 400 MLS/HR Ondansetron HCl (Zofran Inj) 4 mg Q6H PRN IV 08/04/17 10:00 09/03/17 09:59 08/04/17 11:46 4 MG Acetaminophen (Tylenol Tab) 650 mg Q6H PRN PO 08/04/17 10:00 09/03/17 09:59 08/11/17 16:39 650 MG Menthol (Nice [place]) 1 ansley Q2H PRN PO 08/04/17 10:00 09/03/17 09:59 Senna/Docusate Sodium (Senokot S Tab) 2 tab HS PO 08/04/17 21:00 09/03/17 20:59 08/10/17 22:13 2 TAB Apixaban (Eliquis Tab) 2.5 mg BID PO 08/05/17 08:00 09/04/17 07:59 08/13/17 09:43 2.5 MG Aspirin (Ecotrin Tab) 81 mg QAM PO 08/05/17 09:00 09/04/17 08:59 08/13/17 09:43 81 MG Enalaprilat 0.625 mg/Dextrose 25.5 ml @ 100 mls/hr Q6H PRN IV 08/04/17 12:15 09/03/17 12:14 Tramadol HCl (Ultram Tab) 50 mg Q6H PRN PO 08/05/17 09:45 09/04/17 09:44 08/07/17 11:26 50 MG Metoprolol Tartrate (Lopressor Iv) 2.5 mg Q4 PRN IV 08/07/17 03:45 09/06/17 03:44 08/08/17 00:39 2.5 MG Metoprolol Succinate (Toprol Xl Tab) 100 mg BID PO 08/07/17 21:00 09/06/17 20:59 08/12/17 20:58 100 MG Digoxin (Lanoxin Tab) 0.125 mg QAM PO 08/09/17 09:00 09/08/17 08:59 08/13/17 09:43 0.125 MG Quetiapine Fumarate (seroQUEL TAB) 12.5 mg HS PO 08/09/17 21:00 09/08/17 20:59 08/12/17 20:54 12.5 MG Objective Vital Signs Date Time Temp Pulse Resp B/P (MAP) Pulse Ox O2 Delivery O2 Flow Rate FiO2 08/13/17 09:43 88 08/13/17 07:37 36.6 86 18 98/79 (85) 96 Room Air 08/13/17 01:00 93 Room Air 08/12/17 23:28 36.5 90 16 137/69 (91) 90 Room Air 08/12/17 20:00 93 Room Air 08/12/17 16:00 Room Air 08/12/17 15:39 36.5 81 20 146/88 (107) 96 Room Air Physical Exam General Appearance: + pertinent finding (+lethargic, weak, nonverbal currently , staring into space) ENT: + pertinent finding (+hard of hearing) Respiratory/Chest: no respiratory distress, no accessory muscle use Cardiovascular: regular rate, rhythm Extremities: normal inspection, no pedal edema Laboratory Results Last 24 Hours Test 08/12/17 13:15 08/13/17 07:37 Urine Color DK YELLOW Urine Appearance CLOUDY Urine pH 5.0 Urine Specific [place] 1.027 Urine Protein NEG Urine Glucose (UA) NEG Urine Ketones 1+ Urine Occult Blood 3+ Urine Nitrite NEG Urine Bilirubin NEG Urine Urobilinogen NEG Urine Leukocyte Esterase MODERATE Urine WBC (Auto) 10-30 /hpf Urine RBC (Auto) >30 /hpf Urine Hyaline Casts (Auto) 5-10 /lpf Urine Epithelial Cells (Auto) 5-10 /lpf Urine Bacteria (Auto) 1+ Creatinine 0.42 mg/dl Est Creatinine Clear Calc Drug Dose 71.9 ml/min Estimated GFR () 108.3 Estimated GFR (Non- 93.5 Assessment and Plan Confusion, multifactorial Metabolic Encephalopathy secondary to UTI likely delirium on dementia also metabolic encephalopathy secondary to UTI will give Rocephin gram negative bacilli, further cultures pending LEFT HIP FRACTURE SECONDARY TO MECHANICAL FALL -s/p left hip hemiarthroplasty POD#8 -opioid medications held due to worsening encephalopathy -Hb decreased to 10, holding stable; likely related to post op anemia as no active bleeding noted, recheck labs in AM -Ortho consulted, appreciate recommendations -therapy, activity as per Ortho orders CAD: -prior CABG, and previous PCI with stent -Cardiology evaluated the patient preop as well -TTE Report: -- Conclusions -- * The left ventricular cavity is small. * There is severe concentric left ventricular hypertrophy. * Left ventricular systolic function is normal. * The left ventricular wall motion is normal. * Ejection Fraction = 65-70%. * Diastolic dysfunction, Grade III (restrictive pattern), consistent with markedly increased left atrial pressure. * The left atrium is severely dilated. * There is mild mitral regurgitation. * There is moderate tricuspid regurgitation. * Right ventricular systolic pressure is elevated at 40-50mmHg. * There is a pacemaker lead in the right ventricle. -continued on ASA, Losartan, Metoprolol, Simvastatin ATRIAL FIBRILLATION: S/P pacemaker -has been in A fib with RVR -PM interrogation performed, appropriate -Metoprolol held due to low BP/patient declines; titrated up again today per Cardio -digoxin was also added this admission -resumed Eliquis and ASA as ok with Ortho -required PRN IV metoprolol last evening again -HR better controlled DEMENTIA: with ACUTE ENCEPHALOPATHY/DELIRIUM -continues to have confusion intermittently and sometimes is at baseline -likely multifactorial: hospital delirium, s/p surgery, no focal neurologic deficits, unlikely medications as this would have resolved by now -Morphine and tramadol stopped -continue donepezil -monitor -patient continues to be confused, delirious, and hallucinating -have added seroquel PRN qHS -check urine culture, may need antibiotics if cultures are positive DEPRESSION: -continue zoloft HTN: -continue home meds -monitor and titrate meds as needed HYPOTHYROIDISM: -TSH 7, free T4 normal, subclinical hypothyroidism -continue L-thyroxine GERD: -continue zantac DYSLIPIDEMIA: -previous lipid panel from 04/2017: total: 170, HDL:81, LDL: 74, Triglycerides: 74 -continue zocor and zetia
[2017-08-13] MEDS: SODIUM CHLORIDE 0.9% 1000ML 1,000 ML IV SCH (15:30)
[2017-08-13] MEDS: CEFTRIAXONE SOD INJ 1 GM in DEXTROSE 5% ADD-VANTAGE 50ML 50 ML IV SCH (15:30)
[2017-08-13 16:01] VITALS: BP 111/77; PULSE 93; TEMP 36.4; O2SAT 93
[2017-08-13] MEDS: BOOST VANILLA PO SCH ×2 (18:10)
[2017-08-13] MEDS: DOCUSATE SODIUM/SENNA 50/8.6MG TAB PO SCH (20:57)
[2017-08-13] MEDS: SIMVASTATIN 40 MG TAB PO SCH (20:57)
[2017-08-13] MEDS: DONEPEZIL HCL 5 MG TAB PO SCH (20:58)
[2017-08-13] MEDS: QUETIAPINE FUMARATE 25 MG TAB PO SCH (20:59)
[2017-08-13 21:00] VITALS: BP 132/79; PULSE 95
[2017-08-13 23:48] VITALS: BP 115/73; PULSE 92; TEMP 36.6; O2SAT 94
[2017-08-14] VITALS (8 sets, daily range): BP systolic 117–141; BP diastolic 75–83; PULSE 52–99; TEMP 36.3–36.5; O2SAT 93–97
[2017-08-14] MEDS: SODIUM CHLORIDE 0.9% 1000ML 1,000 ML IV SCH ×2 (03:39→15:27)
[2017-08-14] MEDS: LEVOTHYROXINE 25 MCG TAB PO SCH (05:31)
[2017-08-14] MEDS: BOOST VANILLA PO SCH ×4 (08:28→17:16)
[2017-08-14 08:45] LABS: BUN/CREATININE RATIO 37.6 (10-20); CALCIUM 8.3 mg/dl (8.5-10.1); CREATININE 0.54 mg/dl (0.60-1.20); POTASSIUM 3.6 mmol/L (3.5-5.1)
[2017-08-14] MEDS: ASPIRIN 81 MG ECTAB PO SCH (08:54)
[2017-08-14] MEDS: LOSARTAN POTASSIUM 50 MG TAB PO SCH (08:54)
[2017-08-14] MEDS: APIXABAN 2.5 MG TAB PO SCH ×2 (08:55→20:37)
[2017-08-14 08:56] LABS: HEMATOCRIT 37.2 % (37-47); MEAN CELL VOLUME 90.1 fL (80-100); MEAN CORPUSCULAR HEMOGLOBIN 29.8 pg (25-34); MEAN CORPUSCULAR HGB CONC 33.1 g/dl (32-36); MEAN PLATELET VOLUME 10.8 fL (7.4-10.4); PLATELET COUNT 288 K/uL (130-400); RED BLOOD COUNT 4.13 M/uL (4.2-5.4); WHITE BLOOD COUNT 10.67 K/uL (4.8-10.8)
[2017-08-14] MEDS: DIGOXIN 0.125 MG TAB PO SCH (08:58)
[2017-08-14] MEDS: METOPROLOL SUCC 50MG EXT REL TAB PO SCH ×2 (09:00→20:38)
[2017-08-14] MEDS: RANITIDINE HCL 150 MG TAB PO SCH ×2 (09:00→20:38)
[2017-08-14] MEDS: EZETIMIBE 10MG TAB PO SCH (09:02)
[2017-08-14] MEDS: SERTRALINE HCL 50 MG TAB PO SCH (09:06)
--- NOTE | 2017-08-14 09:32 | Progress Note ---
Subjective Date of Service: Aug 14, 2017. Subjective Pt evaluation today including: conversation w/ patient, physical exam, lab review, review of studies, review of inpatient medication list Saw/examined the patient in room 263 delirium persists - hallucinating; as per nephew, she was doing this prior to admission at times as well. She is seeing people in the window. Denies any pain. has not eaten breakfast; as per aides, they will try to get her to drink boost - she is agreeable with this plan. Problem List Medical Problems: (1) Hallucination Status: Acute Review of Systems Respiratory: No shortness of breath Cardiac: No chest pain Musculoskeletal: No joint pain Medications Current Inpatient Medications Medications (Trade) Dose Ordered Sig/Jyothi Route Start Time Stop Time Status Last Admin Dose Admin Naloxone HCl (Narcan Inj) 0.1 mg PRN PRN IV 08/02/17 15:45 09/01/17 15:44 Polyethylene (Miralax Powder Packet) 17 gm DAILY PRN PO 08/02/17 15:45 09/01/17 15:44 Magnesium Hydroxide (Milk Of Magnesia Susp) 30 ml DAILY PRN PO 08/02/17 15:45 09/01/17 15:44 Bisacodyl (Dulcolax Supp) 10 mg DAILY PRN [place] 08/02/17 15:45 09/01/17 15:44 Sodium Biphosphate/ Sodium Phosphate (Fleet Enema) 132 ml PRN PRN [place] 08/02/17 15:45 Miscellaneous (Iv Fluids Completed) 1 ea PRN PRN N/A 08/02/17 16:00 08/02/18 15:59 Donepezil HCl (Aricept Tab) 5 mg HS PO 08/02/17 21:00 09/01/17 20:59 08/13/17 20:58 5 MG EZETIMIBE (Zetia Tab) 10 mg DAILY PO 08/03/17 09:00 09/02/17 08:59 08/14/17 09:02 10 MG Levothyroxine Sodium (Synthroid Tab) 25 mcg DAILYBB PO 08/03/17 06:00 09/02/17 06:59 08/14/17 05:31 25 MCG Losartan Potassium (coZAAR TAB) 50 mg DAILY PO 08/03/17 09:00 09/02/17 08:59 08/14/17 08:54 50 MG Ranitidine HCl (zANTac TAB) 150 mg BID PO 08/02/17 21:00 09/01/17 20:59 08/14/17 09:00 150 MG Simvastatin (Zocor Tab) 40 mg QPM PO 08/02/17 21:00 09/01/17 20:59 08/13/17 20:57 40 MG Sertraline HCl (Zoloft Tab) 25 mg DAILY PO 08/03/17 09:00 09/02/17 08:59 08/14/17 09:06 25 MG Acetaminophen 100 ml @ 400 mls/hr Q8H PRN IV 08/03/17 16:30 09/02/17 16:29 08/03/17 17:44 400 MLS/HR Ondansetron HCl (Zofran Inj) 4 mg Q6H PRN IV 08/04/17 10:00 09/03/17 09:59 08/04/17 11:46 4 MG Acetaminophen (Tylenol Tab) 650 mg Q6H PRN PO 08/04/17 10:00 09/03/17 09:59 08/11/17 16:39 650 MG Menthol (Nice [place]) 1 ansley Q2H PRN PO 08/04/17 10:00 09/03/17 09:59 Senna/Docusate Sodium (Senokot S Tab) 2 tab HS PO 08/04/17 21:00 09/03/17 20:59 08/13/17 20:57 2 TAB Apixaban (Eliquis Tab) 2.5 mg BID PO 08/05/17 08:00 09/04/17 07:59 08/14/17 08:55 2.5 MG Aspirin (Ecotrin Tab) 81 mg QAM PO 08/05/17 09:00 09/04/17 08:59 08/14/17 08:54 81 MG Enalaprilat 0.625 mg/Dextrose 25.5 ml @ 100 mls/hr Q6H PRN IV 08/04/17 12:15 09/03/17 12:14 Tramadol HCl (Ultram Tab) 50 mg Q6H PRN PO 08/05/17 09:45 09/04/17 09:44 08/07/17 11:26 50 MG Metoprolol Tartrate (Lopressor Iv) 2.5 mg Q4 PRN IV 08/07/17 03:45 09/06/17 03:44 08/08/17 00:39 2.5 MG Metoprolol Succinate (Toprol Xl Tab) 100 mg BID PO 08/07/17 21:00 09/06/17 20:59 08/14/17 09:00 100 MG Digoxin (Lanoxin Tab) 0.125 mg QAM PO 08/09/17 09:00 09/08/17 08:59 08/14/17 08:58 0.125 MG Quetiapine Fumarate (seroQUEL TAB) 12.5 mg HS PO 08/09/17 21:00 09/08/17 20:59 08/13/17 20:59 12.5 MG Enteral Nutritional Formula (Boost) 1 can BIDM PO 08/13/17 17:00 09/12/17 16:59 08/14/17 08:28 1 CAN Ceftriaxone Sodium 1 gm/ Dextrose 50 ml @ 100 mls/hr Q24H IV 08/13/17 15:00 08/18/17 14:59 08/13/17 15:30 100 MLS/HR Sodium Chloride 1,000 ml @ 80 mls/hr [id number] IV 08/13/17 15:30 09/12/17 15:29 08/14/17 03:39 80 MLS/HR Objective Vital Signs Date Time Temp Pulse Resp B/P (MAP) Pulse Ox O2 Delivery O2 Flow Rate FiO2 08/14/17 08:58 65 08/14/17 07:32 36.3 52 18 141/83 (102) 95 Room Air 08/14/17 01:10 93 Room Air 08/13/17 23:48 36.6 92 16 115/73 (87) 94 Room Air 08/13/17 21:00 95 132/79 (96) 08/13/17 16:01 36.4 93 20 111/77 (88) 93 Room Air 08/13/17 15:44 Room Air 08/13/17 09:43 88 Physical Exam General Appearance: no apparent distress, + pertinent finding (+delirium; hallucinating) Respiratory/Chest: no respiratory distress, no accessory muscle use Cardiovascular: regular rate, rhythm Extremities: normal inspection, no pedal edema Neurologic/Psychiatric: alert, + disoriented Laboratory Results Last 24 Hours Test 08/14/17 07:53 White Blood Count 10.67 K/uL Red Blood Count 4.13 M/uL Hemoglobin 12.3 g/dL Hematocrit 37.2 % Mean Corpuscular Volume 90.1 fL Mean Corpuscular Hemoglobin 29.8 pg Mean Corpuscular Hemoglobin Concent 33.1 g/dl RDW Standard Deviation 48.5 fL RDW Coefficient of Variation 15.0 % Platelet Count 288 K/uL Mean Platelet Volume 10.8 fL Sodium Level 145 mmol/L Potassium Level 3.6 mmol/L Chloride Level 111 mmol/L Carbon Dioxide Level 24 mmol/L Anion Gap 10.0 mmol/L Blood Urea Nitrogen 20 mg/dl Creatinine 0.54 mg/dl Est Creatinine Clear Calc Drug Dose 55.9 ml/min Estimated GFR () 99.7 Estimated GFR (Non- 86.0 BUN/Creatinine Ratio 37.6 Random Glucose 82 mg/dl Calcium Level 8.3 mg/dl Assessment and Plan Confusion, multifactorial Metabolic Encephalopathy secondary to UTI 08/14 urine culture = e. coli and enterobacter will continue Rocephin IVFs opioids held started boost protein shakes will recheck TSH, check ammonia level and RPR 08/13 likely delirium on dementia also metabolic encephalopathy secondary to UTI will give Rocephin gram negative bacilli, further cultures pending LEFT HIP FRACTURE SECONDARY TO MECHANICAL FALL -s/p left hip hemiarthroplasty POD#8 -opioid medications held due to worsening encephalopathy -Hb decreased to 10, holding stable; likely related to post op anemia as no active bleeding noted, recheck labs in AM -Ortho consulted, appreciate recommendations -therapy, activity as per Ortho orders CAD: -prior CABG, and previous PCI with stent -Cardiology evaluated the patient preop as well -TTE Report: -- Conclusions -- * The left ventricular cavity is small. * There is severe concentric left ventricular hypertrophy. * Left ventricular systolic function is normal. * The left ventricular wall motion is normal. * Ejection Fraction = 65-70%. * Diastolic dysfunction, Grade III (restrictive pattern), consistent with markedly increased left atrial pressure. * The left atrium is severely dilated. * There is mild mitral regurgitation. * There is moderate tricuspid regurgitation. * Right ventricular systolic pressure is elevated at 40-50mmHg. * There is a pacemaker lead in the right ventricle. -continued on ASA, Losartan, Metoprolol, Simvastatin ATRIAL FIBRILLATION: S/P pacemaker -has been in A fib with RVR -PM interrogation performed, appropriate -Metoprolol held due to low BP/patient declines; titrated up again today per Cardio -digoxin was also added this admission -resumed Eliquis and ASA as ok with Ortho -required PRN IV metoprolol last evening again -HR better controlled DEPRESSION: -continue zoloft HTN: -continue home meds -monitor and titrate meds as needed HYPOTHYROIDISM: -TSH 7, free T4 normal, subclinical hypothyroidism -continue L-thyroxine GERD: -continue zantac DYSLIPIDEMIA: -previous lipid panel from 04/2017: total: 170, HDL:81, LDL: 74, Triglycerides: 74 -continue zocor and zetia
[2017-08-14] MEDS: CEFTRIAXONE SOD INJ 1 GM in DEXTROSE 5% ADD-VANTAGE 50ML 50 ML IV SCH (15:27)
[2017-08-14] MEDS: DONEPEZIL HCL 5 MG TAB PO SCH (20:37)
[2017-08-14] MEDS: QUETIAPINE FUMARATE 25 MG TAB PO SCH (20:38)
[2017-08-14] MEDS: DOCUSATE SODIUM/SENNA 50/8.6MG TAB PO SCH (20:39)
[2017-08-14] MEDS: SIMVASTATIN 40 MG TAB PO SCH (20:39)
[2017-08-15] MEDS: SODIUM CHLORIDE 0.9% 1000ML 1,000 ML IV SCH ×2 (05:13→18:09)
[2017-08-15] MEDS: LEVOTHYROXINE 25 MCG TAB PO SCH (05:14)
[2017-08-15 07:21] VITALS: BP 129/84; PULSE 99; TEMP 36.3; O2SAT 97
[2017-08-15] MEDS: RANITIDINE HCL 150 MG TAB PO SCH ×2 (08:31→20:14)
[2017-08-15] MEDS: ASPIRIN 81 MG ECTAB PO SCH (08:31)
[2017-08-15] MEDS: BOOST VANILLA PO SCH ×4 (08:31→18:09)
[2017-08-15] MEDS: EZETIMIBE 10MG TAB PO SCH (08:31)
[2017-08-15] MEDS: SERTRALINE HCL 50 MG TAB PO SCH (08:31)
[2017-08-15] MEDS: DIGOXIN 0.125 MG TAB PO SCH (08:32)
[2017-08-15] MEDS: LOSARTAN POTASSIUM 50 MG TAB PO SCH (08:32)
[2017-08-15] MEDS: METOPROLOL SUCC 50MG EXT REL TAB PO SCH ×2 (08:32→20:19)
[2017-08-15] MEDS: APIXABAN 2.5 MG TAB PO SCH ×2 (08:33→20:13)
[2017-08-15 10:00] VITALS: O2SAT 97
[2017-08-15] MEDS: CEFTRIAXONE SOD INJ 1 GM in DEXTROSE 5% ADD-VANTAGE 50ML 50 ML IV SCH (14:33)
[2017-08-15 15:02] VITALS: BP 145/83; PULSE 95; TEMP 36.9; O2SAT 96
--- NOTE | 2017-08-15 15:20 | Progress Note ---
Subjective Date of Service: Aug 15, 2017. Subjective Pt evaluation today including: conversation w/ patient, physical exam, lab review, review of studies, review of inpatient medication list Saw/examined the patient in room 263 She is pleasantly demented Does not have an appetite still hallucinating Problem List Medical Problems: (1) Hallucination Status: Acute Review of Systems difficult to assess due to patient's mental status Medications Current Inpatient Medications Medications (Trade) Dose Ordered Sig/Jyothi Route Start Time Stop Time Status Last Admin Dose Admin Naloxone HCl (Narcan Inj) 0.1 mg PRN PRN IV 08/02/17 15:45 09/01/17 15:44 Polyethylene (Miralax Powder Packet) 17 gm DAILY PRN PO 08/02/17 15:45 09/01/17 15:44 Magnesium Hydroxide (Milk Of Magnesia Susp) 30 ml DAILY PRN PO 08/02/17 15:45 09/01/17 15:44 Bisacodyl (Dulcolax Supp) 10 mg DAILY PRN [place] 08/02/17 15:45 09/01/17 15:44 Sodium Biphosphate/ Sodium Phosphate (Fleet Enema) 132 ml PRN PRN [place] 08/02/17 15:45 Miscellaneous (Iv Fluids Completed) 1 ea PRN PRN N/A 08/02/17 16:00 08/02/18 15:59 Donepezil HCl (Aricept Tab) 5 mg HS PO 08/02/17 21:00 09/01/17 20:59 08/14/17 20:37 5 MG EZETIMIBE (Zetia Tab) 10 mg DAILY PO 08/03/17 09:00 09/02/17 08:59 08/15/17 08:31 10 MG Levothyroxine Sodium (Synthroid Tab) 25 mcg DAILYBB PO 08/03/17 06:00 09/02/17 06:59 08/15/17 05:14 25 MCG Losartan Potassium (coZAAR TAB) 50 mg DAILY PO 08/03/17 09:00 09/02/17 08:59 08/15/17 08:32 50 MG Ranitidine HCl (zANTac TAB) 150 mg BID PO 08/02/17 21:00 09/01/17 20:59 08/15/17 08:31 150 MG Simvastatin (Zocor Tab) 40 mg QPM PO 08/02/17 21:00 09/01/17 20:59 08/14/17 20:39 40 MG Sertraline HCl (Zoloft Tab) 25 mg DAILY PO 08/03/17 09:00 09/02/17 08:59 08/15/17 08:31 25 MG Acetaminophen 100 ml @ 400 mls/hr Q8H PRN IV 08/03/17 16:30 09/02/17 16:29 08/03/17 17:44 400 MLS/HR Ondansetron HCl (Zofran Inj) 4 mg Q6H PRN IV 08/04/17 10:00 09/03/17 09:59 08/04/17 11:46 4 MG Acetaminophen (Tylenol Tab) 650 mg Q6H PRN PO 08/04/17 10:00 09/03/17 09:59 08/11/17 16:39 650 MG Menthol (Nice Ansley) 1 ansley Q2H PRN PO 08/04/17 10:00 09/03/17 09:59 Senna/Docusate Sodium (Senokot S Tab) 2 tab HS PO 08/04/17 21:00 09/03/17 20:59 08/14/17 20:39 2 TAB Apixaban (Eliquis Tab) 2.5 mg BID PO 08/05/17 08:00 09/04/17 07:59 08/15/17 08:33 2.5 MG Aspirin (Ecotrin Tab) 81 mg QAM PO 08/05/17 09:00 09/04/17 08:59 08/15/17 08:31 81 MG Enalaprilat 0.625 mg/Dextrose 25.5 ml @ 100 mls/hr Q6H PRN IV 08/04/17 12:15 09/03/17 12:14 Tramadol HCl (Ultram Tab) 50 mg Q6H PRN PO 08/05/17 09:45 09/04/17 09:44 08/07/17 11:26 50 MG Metoprolol Tartrate (Lopressor Iv) 2.5 mg Q4 PRN IV 08/07/17 03:45 09/06/17 03:44 08/08/17 00:39 2.5 MG Metoprolol Succinate (Toprol Xl Tab) 100 mg BID PO 08/07/17 21:00 09/06/17 20:59 08/15/17 08:32 100 MG Digoxin (Lanoxin Tab) 0.125 mg QAM PO 08/09/17 09:00 09/08/17 08:59 08/15/17 08:32 0.125 MG Quetiapine Fumarate (seroQUEL TAB) 12.5 mg HS PO 08/09/17 21:00 09/08/17 20:59 08/14/17 20:38 12.5 MG Enteral Nutritional Formula (Boost) 1 can BIDM PO 08/13/17 17:00 09/12/17 16:59 08/15/17 08:31 1 CAN Ceftriaxone Sodium 1 gm/ Dextrose 50 ml @ 100 mls/hr Q24H IV 08/13/17 15:00 08/18/17 14:59 08/15/17 14:33 100 MLS/HR Sodium Chloride 1,000 ml @ 80 mls/hr [id number] IV 08/13/17 15:30 09/12/17 15:29 08/15/17 05:13 80 MLS/HR Objective Vital Signs Date Time Temp Pulse Resp B/P (MAP) Pulse Ox O2 Delivery O2 Flow Rate FiO2 08/15/17 15:02 36.9 95 16 145/83 (103) 96 Room Air 08/15/17 10:00 97 Room Air 08/15/17 08:32 90 08/15/17 07:21 36.3 99 16 129/84 (99) 97 Room Air 08/15/17 00:00 Room Air 08/14/17 23:35 36.5 99 18 120/82 (95) 97 Room Air 08/14/17 20:50 91 136/79 (98) 08/14/17 20:00 Room Air 08/14/17 18:00 95 Room Air 08/14/17 15:57 Room Air 08/14/17 15:46 117/75 (89) 08/14/17 15:39 36.4 63 16 95 Room Air Physical Exam General Appearance: no apparent distress, + pertinent finding (+pleasantly demented, no distress) Respiratory/Chest: lungs clear, normal breath sounds, no respiratory distress, no accessory muscle use Cardiovascular: no edema, + systolic murmur, + irregularly irregular Extremities: normal inspection, no pedal edema Neurologic/Psychiatric: + pertinent finding (pleasantly demented) Assessment and Plan Confusion, multifactorial Metabolic Encephalopathy secondary to UTI 08/15 IV Rocephin for now for the urine culture E. coli and enterobacter can switch to Cipro + Cefuroxime for discharge 08/14 urine culture = e. coli and Enterobacter will continue Rocephin IVFs opioids held started boost protein shakes will recheck TSH, check ammonia level and RPR 08/13 likely delirium on dementia also metabolic encephalopathy secondary to UTI will give Rocephin gram negative bacilli, further cultures pending Failure to Thrive patient with lack of appetite trying boost BID with meals will benefit from d/c to SNF LEFT HIP FRACTURE SECONDARY TO MECHANICAL FALL -s/p left hip hemiarthroplasty POD#8 -opioid medications held due to worsening encephalopathy -Hb decreased to 10, holding stable; likely related to post op anemia as no active bleeding noted, recheck labs in AM -Ortho consulted, appreciate recommendations -therapy, activity as per Ortho orders CAD: -prior CABG, and previous PCI with stent -Cardiology evaluated the patient preop as well -TTE Report: -- Conclusions -- * The left ventricular cavity is small. * There is severe concentric left ventricular hypertrophy. * Left ventricular systolic function is normal. * The left ventricular wall motion is normal. * Ejection Fraction = 65-70%. * Diastolic dysfunction, Grade III (restrictive pattern), consistent with markedly increased left atrial pressure. * The left atrium is severely dilated. * There is mild mitral regurgitation. * There is moderate tricuspid regurgitation. * Right ventricular systolic pressure is elevated at 40-50mmHg. * There is a pacemaker lead in the right ventricle. -continued on ASA, Losartan, Metoprolol, Simvastatin ATRIAL FIBRILLATION: S/P pacemaker -has been in A fib with RVR -PM interrogation performed, appropriate -Metoprolol held due to low BP/patient declines; titrated up again today per Cardio -digoxin was also added this admission -resumed Eliquis and ASA as ok with Ortho -required PRN IV metoprolol last evening again -HR better controlled DEPRESSION: -continue zoloft HTN: -continue home meds -monitor and titrate meds as needed HYPOTHYROIDISM: -TSH 7, free T4 normal, subclinical hypothyroidism -continue L-thyroxine GERD: -continue zantac DYSLIPIDEMIA: -previous lipid panel from 04/2017: total: 170, HDL:81, LDL: 74, Triglycerides: 74 -continue zocor and zetia
[2017-08-15 16:00] VITALS: O2SAT 96
[2017-08-15] MEDS: DOCUSATE SODIUM/SENNA 50/8.6MG TAB PO SCH (20:13)
[2017-08-15] MEDS: DONEPEZIL HCL 5 MG TAB PO SCH (20:13)
[2017-08-15] MEDS: SIMVASTATIN 40 MG TAB PO SCH (20:14)
[2017-08-15 20:18] VITALS: BP 161/96; PULSE 88
[2017-08-15] MEDS: QUETIAPINE FUMARATE 25 MG TAB PO SCH (20:20)
[2017-08-16 00:05] VITALS: BP 151/85; PULSE 76; TEMP 36.9; O2SAT 96
[2017-08-16] MEDS: LEVOTHYROXINE 25 MCG TAB PO SCH (05:31)
[2017-08-16 06:55] VITALS: BP 160/92; PULSE 92; TEMP 36.9; O2SAT 96
[2017-08-16 07:50] LABS: HEMATOCRIT 36.5 % (37-47); MEAN CELL VOLUME 89.9 fL (80-100); MEAN CORPUSCULAR HEMOGLOBIN 29.6 pg (25-34); MEAN CORPUSCULAR HGB CONC 32.9 g/dl (32-36); MEAN PLATELET VOLUME 10.2 fL (7.4-10.4); PLATELET COUNT 287 K/uL (130-400); RED BLOOD COUNT 4.06 M/uL (4.2-5.4)
[2017-08-16] MEDS: BOOST VANILLA PO SCH ×4 (07:55→16:26)
[2017-08-16] MEDS: POLYETHYLENE (MIRALAX) 17 GM PACK PO PRN (07:56)
[2017-08-16] MEDS: SODIUM CHLORIDE 0.9% 1000ML 1,000 ML IV SCH ×2 (07:56→22:22)
[2017-08-16] MEDS: LOSARTAN POTASSIUM 50 MG TAB PO SCH (07:57)
[2017-08-16] MEDS: EZETIMIBE 10MG TAB PO SCH (07:58)
[2017-08-16] MEDS: RANITIDINE HCL 150 MG TAB PO SCH ×2 (07:58→22:22)
[2017-08-16] MEDS: ASPIRIN 81 MG ECTAB PO SCH (07:58)
[2017-08-16] MEDS: DIGOXIN 0.125 MG TAB PO SCH (07:58)
[2017-08-16] MEDS: METOPROLOL SUCC 50MG EXT REL TAB PO SCH ×2 (07:59→22:22)
[2017-08-16] MEDS: APIXABAN 2.5 MG TAB PO SCH ×2 (07:59→22:23)
[2017-08-16] MEDS: SERTRALINE HCL 50 MG TAB PO SCH (07:59)
[2017-08-16 08:23] LABS: BUN/CREATININE RATIO 16.8 (10-20); CALCIUM 8.1 mg/dl (8.5-10.1); CREATININE 0.38 mg/dl (0.60-1.20)
[2017-08-16] MEDS: CEFTRIAXONE SOD INJ 1 GM in DEXTROSE 5% ADD-VANTAGE 50ML 50 ML IV SCH (14:14)
[2017-08-16 14:31] VITALS: BP 125/76; PULSE 58; TEMP 36.7; O2SAT 96
[2017-08-16] MEDS ORDERED: POTASSIUM CHLORIDE 20 MEQ TABCR PO ONE (15:15)
[2017-08-16 16:00] VITALS: O2SAT 96
--- NOTE | 2017-08-16 18:30 | Progress Note ---
Medicine Progress Note Date & Time of Visit: Aug 16, 2017 at 13:27. Subjective Pt was seen and examined sitting in chair with no distress Pt said that she is having some pain in his back She said that she walked with PT today Denies any chest pain, palpitation, dizziness and SOB Objective Last 8 Hrs Date Time Temp Pulse Resp B/P (MAP) Pulse Ox O2 Delivery O2 Flow Rate FiO2 08/16/17 16:00 96 Room Air 08/16/17 14:31 36.7 58 18 125/76 (92) 96 Room Air Physical Exam: General- No acute distress Head- atraumatic Eyes- PERRL, EOMI ENT- oropharynx clear Neck- supple, no JVD Lungs- clear to auscultation Heart- irregular rhythm, systolic murmur Abdomen- normal bowel sounds, soft Extremities-no calf tenderness Neuro- alert, oriented, PERRL, EOMI; no facial palsy Skin- warm & dry Laboratory Results: Last 24 Hours Test 08/16/17 07:27 White Blood Count 8.80 K/uL Red Blood Count 4.06 M/uL Hemoglobin 12.0 g/dL Hematocrit 36.5 % Mean Corpuscular Volume 89.9 fL Mean Corpuscular Hemoglobin 29.6 pg Mean Corpuscular Hemoglobin Concent 32.9 g/dl RDW Standard Deviation 48.8 fL RDW Coefficient of Variation 15.0 % Platelet Count 287 K/uL Mean Platelet Volume 10.2 fL Sodium Level 141 mmol/L Potassium Level 3.0 mmol/L Chloride Level 107 mmol/L Carbon Dioxide Level 24 mmol/L Anion Gap 11.0 mmol/L Blood Urea Nitrogen 6 mg/dl Creatinine 0.38 mg/dl Est Creatinine Clear Calc Drug Dose 79.5 ml/min Estimated GFR () 112.0 Estimated GFR (Non- 96.6 BUN/Creatinine Ratio 16.8 Random Glucose 83 mg/dl Calcium Level 8.1 mg/dl Assessment & Plan Confusion, multifactorial Metabolic Encephalopathy secondary to UTI CT head on admission showed no acute intracranial abnormality. Please avoid medication that can altered mental status Clinically improved Continue monitor UTI urine cx grew E. coli and Enterobacter Was on Ancef for a couple days that was sensitive for E. Coli On IV Rocephin day 4 ( that covers both organisms) Will switch Cefuroxime on discharge for 2 more days that covers Enterobacter Failure to Thrive Continue Encourage to eat Continue boost BID with meals LEFT HIP FRACTURE SECONDARY TO MECHANICAL FALL s/p left hip hemiarthroplasty POD#12 opioid medications held due to worsening encephalopathy Hb stable Continue PT/OT Fall precaution Will discharge to [facility] for Rehab Follow up appointment 10-14 days from the date of your surgery date. CAD: prior CABG, and previous PCI with stent Cardiology evaluated the patient preop as well TTE Report: -- Conclusions -- * The left ventricular cavity is small. * There is severe concentric left ventricular hypertrophy. * Left ventricular systolic function is normal. * The left ventricular wall motion is normal. * Ejection Fraction = 65-70%. * Diastolic dysfunction, Grade III (restrictive pattern), consistent with markedly increased left atrial pressure. * The left atrium is severely dilated. * There is mild mitral regurgitation. * There is moderate tricuspid regurgitation. * Right ventricular systolic pressure is elevated at 40-50mmHg. * There is a pacemaker lead in the right ventricle. continued on ASA, Losartan, Metoprolol, Simvastatin ATRIAL FIBRILLATION: S/P pacemaker Was in A fib with RVR Rate is controlled PM interrogation performed, appropriate Continue digoxin, metoprolol On Eliquis and asa DEPRESSION: Continue zoloft HTN: Continue home meds Monitor and titrate meds as needed HYPOTHYROIDISM: TSH 7, free T4 normal, subclinical hypothyroidism Ccontinue L-thyroxine GERD: Vontinue zantac DYSLIPIDEMIA: Previous lipid panel from 04/2017: total: 170, HDL:81, LDL: 74, Triglycerides: 74 Continue zocor and zetia DVT px on Eliquis and Asa CODE STATUS DNR DISPOSITION Will discharge today to [facility] for inpatient rehab Current Inpatient Medications: Current Inpatient Medications Medications (Trade) Dose Ordered Sig/Jyothi Route Start Time Stop Time Status Last Admin Dose Admin Naloxone HCl (Narcan Inj) 0.1 mg PRN PRN IV 08/02/17 15:45 09/01/17 15:44 Polyethylene (Miralax Powder Packet) 17 gm DAILY PRN PO 08/02/17 15:45 09/01/17 15:44 08/16/17 07:56 17 GM Magnesium Hydroxide (Milk Of Magnesia Susp) 30 ml DAILY PRN PO 08/02/17 15:45 09/01/17 15:44 Bisacodyl (Dulcolax Supp) 10 mg DAILY PRN [place] 08/02/17 15:45 09/01/17 15:44 Sodium Biphosphate/ Sodium Phosphate (Fleet Enema) 132 ml PRN PRN [place] 08/02/17 15:45 Miscellaneous (Iv Fluids Completed) 1 ea PRN PRN N/A 08/02/17 16:00 08/02/18 15:59 Donepezil HCl (Aricept Tab) 5 mg HS PO 08/02/17 21:00 09/01/17 20:59 08/15/17 20:13 5 MG EZETIMIBE (Zetia Tab) 10 mg DAILY PO 08/03/17 09:00 09/02/17 08:59 08/16/17 07:58 10 MG Levothyroxine Sodium (Synthroid Tab) 25 mcg DAILYBB PO 08/03/17 06:00 09/02/17 06:59 08/16/17 05:31 25 MCG Losartan Potassium (coZAAR TAB) 50 mg DAILY PO 08/03/17 09:00 09/02/17 08:59 08/16/17 07:57 50 MG Ranitidine HCl (zANTac TAB) 150 mg BID PO 08/02/17 21:00 09/01/17 20:59 08/16/17 07:58 150 MG Simvastatin (Zocor Tab) 40 mg QPM PO 08/02/17 21:00 09/01/17 20:59 08/15/17 20:14 40 MG Sertraline HCl (Zoloft Tab) 25 mg DAILY PO 08/03/17 09:00 09/02/17 08:59 08/16/17 07:59 25 MG Acetaminophen 100 ml @ 400 mls/hr Q8H PRN IV 08/03/17 16:30 09/02/17 16:29 08/03/17 17:44 400 MLS/HR Ondansetron HCl (Zofran Inj) 4 mg Q6H PRN IV 08/04/17 10:00 09/03/17 09:59 08/04/17 11:46 4 MG Acetaminophen (Tylenol Tab) 650 mg Q6H PRN PO 08/04/17 10:00 09/03/17 09:59 08/11/17 16:39 650 MG Menthol (Nice Ansley) 1 ansley Q2H PRN PO 08/04/17 10:00 09/03/17 09:59 Senna/Docusate Sodium (Senokot S Tab) 2 tab HS PO 08/04/17 21:00 09/03/17 20:59 08/15/17 20:13 2 TAB Apixaban (Eliquis Tab) 2.5 mg BID PO 08/05/17 08:00 09/04/17 07:59 08/16/17 07:59 2.5 MG Aspirin (Ecotrin Tab) 81 mg QAM PO 08/05/17 09:00 09/04/17 08:59 08/16/17 07:58 81 MG Enalaprilat 0.625 mg/Dextrose 25.5 ml @ 100 mls/hr Q6H PRN IV 08/04/17 12:15 09/03/17 12:14 Tramadol HCl (Ultram Tab) 50 mg Q6H PRN PO 08/05/17 09:45 09/04/17 09:44 08/07/17 11:26 50 MG Metoprolol Tartrate (Lopressor Iv) 2.5 mg Q4 PRN IV 08/07/17 03:45 09/06/17 03:44 08/08/17 00:39 2.5 MG Metoprolol Succinate (Toprol Xl Tab) 100 mg BID PO 08/07/17 21:00 09/06/17 20:59 08/16/17 07:59 100 MG Digoxin (Lanoxin Tab) 0.125 mg QAM PO 08/09/17 09:00 09/08/17 08:59 08/16/17 07:58 0.125 MG Quetiapine Fumarate (seroQUEL TAB) 12.5 mg HS PO 08/09/17 21:00 09/08/17 20:59 08/15/17 20:20 12.5 MG Enteral Nutritional Formula (Boost) 1 can BIDM PO 08/13/17 17:00 09/12/17 16:59 08/16/17 07:55 1 CAN Ceftriaxone Sodium 1 gm/ Dextrose 50 ml @ 100 mls/hr Q24H IV 08/13/17 15:00 08/18/17 14:59 08/16/17 14:14 100 MLS/HR Sodium Chloride 1,000 ml @ 80 mls/hr [id number] IV 08/13/17 15:30 09/12/17 15:29 08/16/17 07:56 80 MLS/HR
[2017-08-16] MEDS: QUETIAPINE FUMARATE 25 MG TAB PO SCH (22:22)
[2017-08-16] MEDS: SIMVASTATIN 40 MG TAB PO SCH (22:22)
[2017-08-16] MEDS: DOCUSATE SODIUM/SENNA 50/8.6MG TAB PO SCH (22:22)
[2017-08-16] MEDS: DONEPEZIL HCL 5 MG TAB PO SCH (22:23)
[2017-08-16 23:30] VITALS: BP 122/70; PULSE 81; TEMP 36.9; O2SAT 96
[2017-08-17] MEDS: LEVOTHYROXINE 25 MCG TAB PO SCH (06:17)
[2017-08-17 07:05] VITALS: BP 137/85; PULSE 81; TEMP 36.9; O2SAT 97
[2017-08-17] MEDS: BOOST VANILLA PO SCH ×2 (07:49)
[2017-08-17] MEDS: POLYETHYLENE (MIRALAX) 17 GM PACK PO PRN (07:50)
[2017-08-17] MEDS: DIGOXIN 0.125 MG TAB PO SCH (07:51)
[2017-08-17] MEDS: LOSARTAN POTASSIUM 50 MG TAB PO SCH (07:51)
[2017-08-17] MEDS: EZETIMIBE 10MG TAB PO SCH (07:51)
[2017-08-17] MEDS: SERTRALINE HCL 50 MG TAB PO SCH (07:51)
[2017-08-17] MEDS: ASPIRIN 81 MG ECTAB PO SCH (07:51)
[2017-08-17] MEDS: METOPROLOL SUCC 50MG EXT REL TAB PO SCH (07:52)
[2017-08-17] MEDS: RANITIDINE HCL 150 MG TAB PO SCH (07:52)
[2017-08-17] MEDS: CEFTRIAXONE SOD INJ 1 GM in DEXTROSE 5% ADD-VANTAGE 50ML 50 ML IV SCH (09:58)
[2017-08-17] MEDS: APIXABAN 2.5 MG TAB PO SCH (10:36)
[2017-08-17 10:45] LABS: BUN/CREATININE RATIO 18.2 (10-20); CREATININE 0.49 mg/dl (0.60-1.20)
[2017-08-17 11:10] LABS: POTASSIUM 3.9 mmol/L (3.5-5.1)
[2017-08-17] MEDS: SODIUM CHLORIDE 0.9% 1000ML 1,000 ML IV SCH (11:22)
--- NOTE | 2017-08-17 12:44 | Progress Note ---
Medicine Progress Note Date & Time of Visit: Aug 17, 2017 at 12:39. Subjective Pt was seen and examined Lying in bed comfortable with no distress Pt said that she feels fine she said that she does not have any pain today denies any chest pain, palpitation, dizziness and SOB Objective Last 8 Hrs Date Time Temp Pulse Resp B/P (MAP) Pulse Ox O2 Delivery O2 Flow Rate FiO2 08/17/17 07:51 83 08/17/17 07:05 36.9 81 16 137/85 (102) 97 Room Air Physical Exam: General- No acute distress Head- atraumatic Eyes- PERRL, EOMI ENT- oropharynx clear Neck- supple, no JVD Lungs- clear to auscultation Heart- irregular rhythm, systolic murmur Abdomen- normal bowel sounds, soft Extremities-no calf tenderness Neuro- alert, oriented, PERRL, EOMI; no facial palsy Skin- warm & dry Laboratory Results: Last 24 Hours Test 08/17/17 09:54 Sodium Level 143 mmol/L Potassium Level 3.9 mmol/L Chloride Level 112 mmol/L Carbon Dioxide Level 26 mmol/L Anion Gap 5.0 mmol/L Blood Urea Nitrogen 9 mg/dl Creatinine 0.49 mg/dl Est Creatinine Clear Calc Drug Dose 61.6 ml/min Estimated GFR () 103.0 Estimated GFR (Non- 88.8 BUN/Creatinine Ratio 18.2 Random Glucose 83 mg/dl Calcium Level 8.0 mg/dl Chemistry Specimen Hemolysis Assessment & Plan Confusion, multifactorial Metabolic Encephalopathy secondary to UTI CT head on admission showed no acute intracranial abnormality. Please avoid medication that can altered mental status Continue donepezil and quetiapine Stable UTI urine cx grew E. coli and Enterobacter Was on Ancef for a couple days that was sensitive for E. Coli On IV Rocephin day 5 ( that covers both organisms) Will do Cefuroxime on discharge for 2 more days to cover for Enterobacter Failure to Thrive Continue Encourage to eat Continue boost BID with meals Stable LEFT HIP FRACTURE SECONDARY TO MECHANICAL FALL s/p left hip hemiarthroplasty POD#13 opioid medications held due to worsening encephalopathy Hb stable Continue PT/OT Fall precaution Will discharge to [facility] for Rehab today Follow up appointment in 2 weeks from the date of your surgery date. CAD: prior CABG, and previous PCI with stent Cardiology evaluated the patient preop as well TTE Report: -- Conclusions -- * The left ventricular cavity is small. * There is severe concentric left ventricular hypertrophy. * Left ventricular systolic function is normal. * The left ventricular wall motion is normal. * Ejection Fraction = 65-70%. * Diastolic dysfunction, Grade III (restrictive pattern), consistent with markedly increased left atrial pressure. * The left atrium is severely dilated. * There is mild mitral regurgitation. * There is moderate tricuspid regurgitation. * Right ventricular systolic pressure is elevated at 40-50mmHg. * There is a pacemaker lead in the right ventricle. continued on ASA, Losartan, Metoprolol, Simvastatin ATRIAL FIBRILLATION: S/P pacemaker Rate has been controlled PM interrogation performed, appropriate Continue digoxin, metoprolol Continue Eliquis and asa DEPRESSION: Continue Zoloft HTN: Continue home meds Monitor and titrate meds as needed HYPOTHYROIDISM: TSH 7, free T4 normal, subclinical hypothyroidism Ccontinue L-thyroxine GERD: Continue Zantac DYSLIPIDEMIA: Previous lipid panel from 04/2017: total: 170, HDL:81, LDL: 74, Triglycerides: 74 Continue Zocor and Zetia DVT px on Eliquis and Asa CODE STATUS DNR DISPOSITION Will discharge today to [facility] for inpatient rehab Consultants: Ortho Cardio Procedures: s/p left hip hemiarthroplasty Current Inpatient Medications: Current Inpatient Medications Medications (Trade) Dose Ordered Sig/Jyothi Route Start Time Stop Time Status Last Admin Dose Admin Naloxone HCl (Narcan Inj) 0.1 mg PRN PRN IV 08/02/17 15:45 09/01/17 15:44 Polyethylene (Miralax Powder Packet) 17 gm DAILY PRN PO 08/02/17 15:45 09/01/17 15:44 08/17/17 07:50 17 GM Magnesium Hydroxide (Milk Of Magnesia Susp) 30 ml DAILY PRN PO 08/02/17 15:45 09/01/17 15:44 Bisacodyl (Dulcolax Supp) 10 mg DAILY PRN [place] 08/02/17 15:45 09/01/17 15:44 Sodium Biphosphate/ Sodium Phosphate (Fleet Enema) 132 ml PRN PRN [place] 08/02/17 15:45 Miscellaneous (Iv Fluids Completed) 1 ea PRN PRN N/A 08/02/17 16:00 08/02/18 15:59 Donepezil HCl (Aricept Tab) 5 mg HS PO 08/02/17 21:00 09/01/17 20:59 08/16/17 22:23 5 MG EZETIMIBE (Zetia Tab) 10 mg DAILY PO 08/03/17 09:00 09/02/17 08:59 08/17/17 07:51 10 MG Levothyroxine Sodium (Synthroid Tab) 25 mcg DAILYBB PO 08/03/17 06:00 09/02/17 06:59 08/17/17 06:17 25 MCG Losartan Potassium (coZAAR TAB) 50 mg DAILY PO 08/03/17 09:00 09/02/17 08:59 08/17/17 07:51 50 MG Ranitidine HCl (zANTac TAB) 150 mg BID PO 08/02/17 21:00 09/01/17 20:59 08/17/17 07:52 150 MG Simvastatin (Zocor Tab) 40 mg QPM PO 08/02/17 21:00 09/01/17 20:59 08/16/17 22:22 40 MG Sertraline HCl (Zoloft Tab) 25 mg DAILY PO 08/03/17 09:00 09/02/17 08:59 08/17/17 07:51 25 MG Acetaminophen 100 ml @ 400 mls/hr Q8H PRN IV 08/03/17 16:30 09/02/17 16:29 08/03/17 17:44 400 MLS/HR Ondansetron HCl (Zofran Inj) 4 mg Q6H PRN IV 08/04/17 10:00 09/03/17 09:59 08/04/17 11:46 4 MG Acetaminophen (Tylenol Tab) 650 mg Q6H PRN PO 08/04/17 10:00 09/03/17 09:59 08/11/17 16:39 650 MG Menthol (Nice Ansley) 1 ansley Q2H PRN PO 08/04/17 10:00 09/03/17 09:59 Senna/Docusate Sodium (Senokot S Tab) 2 tab HS PO 08/04/17 21:00 09/03/17 20:59 08/16/17 22:22 2 TAB Apixaban (Eliquis Tab) 2.5 mg BID PO 08/05/17 08:00 09/04/17 07:59 08/17/17 10:36 2.5 MG Aspirin (Ecotrin Tab) 81 mg QAM PO 08/05/17 09:00 09/04/17 08:59 08/17/17 07:51 81 MG Enalaprilat 0.625 mg/Dextrose 25.5 ml @ 100 mls/hr Q6H PRN IV 08/04/17 12:15 09/03/17 12:14 Tramadol HCl (Ultram Tab) 50 mg Q6H PRN PO 08/05/17 09:45 09/04/17 09:44 08/07/17 11:26 50 MG Metoprolol Tartrate (Lopressor Iv) 2.5 mg Q4 PRN IV 08/07/17 03:45 09/06/17 03:44 08/08/17 00:39 2.5 MG Metoprolol Succinate (Toprol Xl Tab) 100 mg BID PO 08/07/17 21:00 09/06/17 20:59 08/17/17 07:52 100 MG Digoxin (Lanoxin Tab) 0.125 mg QAM PO 08/09/17 09:00 09/08/17 08:59 08/17/17 07:51 0.125 MG Quetiapine Fumarate (seroQUEL TAB) 12.5 mg HS PO 08/09/17 21:00 09/08/17 20:59 08/16/17 22:22 12.5 MG Enteral Nutritional Formula (Boost) 1 can BIDM PO 08/13/17 17:00 09/12/17 16:59 08/17/17 07:49 1 CAN Ceftriaxone Sodium 1 gm/ Dextrose 50 ml @ 100 mls/hr Q24H IV 08/13/17 15:00 08/18/17 14:59 08/17/17 09:58 100 MLS/HR Sodium Chloride 1,000 ml @ 80 mls/hr [id number] IV 08/13/17 15:30 09/12/17 15:29 08/17/17 11:22 80 MLS/HR
[2017-08-17] MEDS ORDERED: ACET-1047 PO (12:56)
[2017-08-17] MEDS ORDERED: SRQ25 PO (12:56)
[2017-08-17] MEDS ORDERED: LNX125 PO (12:56)
[2017-08-17] MEDS ORDERED: TPRSR50 PO (12:56)
[2017-08-17] MEDS ORDERED: CEFU1TAB36 PO (13:00)
--- NOTE | 2017-08-17 13:06 | Discharge Instructions ---
Discharge Instructions Date of Service Aug 17, 2017. Admission Reason for Admission: Atrial Fibrillation, Closed Fracture Of Left Hip Discharge Discharge Diagnosis / Problem: LEFT HIP FRACTURE, UTI, Confusion Afib with RVR , failure to thrive Discharge Goals Goal(s): Decrease discomfort, Improve function, Improve disease control Activity Recommendations Activity Limitations: resume your previous activity (as tolerated) . Instructions / Follow-Up Instructions / Follow-Up Discharge today to [facility] Follow up with your primary care provider once discharge from rehab Call to schedule follow appointment with Ortho within 1 week Follow ortho recommendation Continue PT/OT Fall precaution Complete course of abx with cefuroxime Current Hospital Diet Patient's current hospital diet: AHA Diet (Heart Healthy) Discharge Diet Recommended Diet: AHA Diet (Heart Healthy) Procedures Procedures Performed: Left Bipolar Hip Prosthesis Pending Studies Studies pending at discharge: no Medical Emergencies . Who to Call and When: Medical Emergencies: If at any time you feel your situation is an emergency, please call 911 immediately. . Non-Emergent Contact Non-Emergency issues call your: Primary Care Provider Call Non-Emergent contact if: you have a fever, your pain is not controlled, you have any medication questions . . "Provider Documentation" section prepared by Hossein Cortez. . Solar Pv Installer Recommendations Solar Pv Installer Recommendations: U DISCHARGE INSTRUCTIONS: HIP FRACTURE SELF CARE INSTRUCTIONS: A. You are to ambulate with a walker or crutches for approximately 6 weeks. B. You are WEIGHT BEARING TOLERATE on your operative lower extremity for at least 6 weeks. C. Wear low heeled shoes with non-slip soles D. Be sure that your floors are free of things that could trip you throw rugs, electrical cords, and small objects. Avoid wet and waxed floors, especially with crutches/walker/cane. E. Try to walk several times a day with rest periods between. F. You may shower 48 hours after surgery and get the incision area wet, but DO NOT soak or submerge incision area in water. (No baths, swimming pools, hot tubs ) G. You may have a large, band-aid like dressing over your incision (Aquacel). This will remain on your incision for 7 days, and then can be removed. You CAN shower with this on. If incision is leaking through the dressing, please call the office . H. Do NOT apply soap or any ointment/lotions directly over incision. I. You may use ice as needed to operative site. SPECIAL CARE INSTRUCTIONS: VERY IMPORTANT TO READ AND REVIEW A. You may be at risk for phlebitis or blood clots. a. Wear surgical stockings (NYLA hose) for 2 weeks after surgery to improve circulation and reduce swelling. b. Take your home medication eliquis and aspirin as directed by your medical doctor. This is your blood thinner. c. If you are on Coumadin- you will have daily/weekly blood work to monitor your levels. This will be done by either your family physician/ senior principal software engineer (if you are on Coumadin chronically) versus your orthopedic surgeon. Expect a phone call the day of or the day after your blood work is drawn to adjust your dose accordingly. B. There are a few signs you need to watch for after you are home. Call [facility] at [phone] if you experience any of the following: a. If you have a temperature of 101 degrees or higher. b. Sudden increase in pain in your hip not relieved by rest or pain medication. c. Any fluid or drainage from the incision; redness of the incision. d. Shortness of breath or chest pain. B. Please call [facility] at [phone] if you have any questions or concerns about your operation or recovery. C. Call your physician if: a. Temperature is greater than 101 degrees (F). b. Pain is not relieved by prescribed pain medications. c. Increase drainage or redness from incision. d. Unanswered questions or concerns. D. Pain Medication: a. You will be prescribed pain medication upon discharge that should last till your first post-operative appointment. b. If you experience nausea and/or skin rash, discontinue this medication and contact our office for an alternative medication. c. Caution- narcotic pain medication can cause constipation. FOLLOW UP VISIT: Please call [facility] at [phone] to schedule a follow up appointment 10-14 days from the date of your surgery date. VTE Core Measure Inpt VTE Proph given/why not?: Other Anticoagulation, SCD's
--- NOTE | 2017-08-17 13:19 | Discharge Summary ---
Discharge Summary Date of Service Aug 17, 2017. Discharge Summary Admission Date: Aug 02, 2017 at 16:00 Discharge Date: Aug 17, 2017 Discharge Disposition: Rehab Principal Diagnosis: LEFT HIP FRACTURE Secondary Diagnoses/Problems: UTI Confusion Afib with RVR Failure to thrive Hypothyroidism CAD HTN Depression Procedures: s/p left hip hemiarthroplasty ECHO Interpretation Summary * Name: MANE FELICIANO Study Date: 08/03/2017 06:25 AM BP: 157/82 mmHg * Patient Location: [id number]\\[id number]\\[id number]\\1 HR: 63 * : 1930 (M/d/yyyy) Gender: Female Height: 57 in * Age: 87 yrs Ethnicity: CA Weight: 111 lb * Ordering Physician: Kal Sexton * Referring Physician: Self, Referred * Performed By: Jerri Cardozo RDCS * * Reason For Study: AFIB * BSA: 1.4 m2 * -- Conclusions -- * The left ventricular cavity is small. * There is severe concentric left ventricular hypertrophy. * Left ventricular systolic function is normal. * The left ventricular wall motion is normal. * Ejection Fraction = 65-70%. * Diastolic dysfunction, Grade III (restrictive pattern), consistent with markedly increased left atrial pressure. * The left atrium is severely dilated. * There is mild mitral regurgitation. * There is moderate tricuspid regurgitation. * Right ventricular systolic pressure is elevated at 40-50mmHg. * There is a pacemaker lead in the right ventricle. Procedure Details * A complete two-dimensional transthoracic echocardiogram was performed (2D, M- mode, Doppler and color flow Doppler). Left Ventricle * The left ventricular cavity is small. * There is severe concentric left ventricular hypertrophy. * Left ventricular systolic function is normal. * Ejection Fraction = 65-70%. * The left ventricular wall motion is normal. Right Ventricle * The right ventricle is normal in size and function. * There is a pacemaker lead in the right ventricle. Atria * The left atrium is severely dilated. * Right atrial size is normal. * No ASD detected; PFO is not assessed. Mitral Valve * The mitral valve anatomy is normal. * There is no mitral valve stenosis. * There is mild mitral regurgitation. Tricuspid Valve * The tricuspid valve anatomy is normal. * There is no tricuspid stenosis. * There is moderate tricuspid regurgitation. * Right ventricular systolic pressure is elevated at 40-50mmHg. Aortic Valve * The aortic valve is trileaflet. * Aortic valve sclerosis moderate, without significant aortic valvular stenosis. * No aortic regurgitation is present. Pulmonic Valve * The pulmonic valve is not well visualized. Great Vessels * The aortic root is normal size. Pericardium/Pleural * There is no pericardial effusion. Great Vessels * Normal inferior vena cava diameter and respiratory variation suggests normal central venous pressure. Left Ventricular Diastolic Function * Diastolic dysfunction, Grade III (restrictive pattern), consistent with markedly increased left atrial pressure. HEAD WITHOUT CONTRAST (CT) CLINICAL HISTORY: 87 years-old Female with fall; ? head strike. Acute head injury status post fall TECHNIQUE: Multiple axial CT images of the head were obtained without contrast. A dose lowering technique was utilized adhering to the principles of ALARA. CT DOSE: 638.56 mGycm COMPARISON: CT head 07/16/2017. FINDINGS: No acute intracranial hemorrhage, midline shift, mass, or large territorial ischemia. Moderate interval atrophy, notably involving the bilateral frontal lobes. Cavum septum lucidum noted. No definite extra-axial fluid collections. Moderate background chronic microvascular ischemic changes are noted. Cerebral vascular calcifications are seen at the level of the skull base. Remote lacunar infarction of the left lentiform nucleus. The calvarium is intact. The paranasal sinuses, mastoid air cells, and middle ear cavities are clear. IMPRESSION: 1. No acute intracranial abnormality. 2. Atrophy with chronic microvascular ischemic changes. The above report was generated using voice recognition software. It may contain grammatical, syntax or spelling errors. Electronically signed by: Jaspal Og M.D. 08/02/2017 1:40 PM Dictated Date/Time: 08/02/2017 1:37 PM PELVIS/BILATERAL HIP 2 VIEWS CLINICAL HISTORY: fall; L pelvis and hip pain trauma. Pain. COMPARISON STUDY: None FINDINGS: Subcapital fracture left hip mild superior displacement left femoral shaft. Moderate degenerative change right hip. No additional fracture. Soft tissue vascular calcifications. IMPRESSION: Subcapital fracture left hip with moderate superior migration left femoral shaft. The above report was generated using voice recognition software. It may contain grammatical, syntax or spelling errors. Electronically signed by: Cholo Lainez M.D. 08/02/2017 2:12 PM Dictated Date/Time: 08/02/2017 2:12 PM Consultations: Ortho Cardio Medication Reconciliation New Medications: Cefuroxime Axetil (Cefuroxime Axetil) 500 Mg Tab 1 TAB PO BID for 2 Days, #4 TAB Acetaminophen (Mapap) 325 Mg Tab 650 MG PO Q6H PRN for For mild pain (pain scale 1-3) for 5 Days, #40 TAB Digoxin (Digoxin) 0.125 Mg Tab 0.125 MG PO QAM for 30 Days, #30 TAB Metoprolol Succinate (Metoprolol Succinate ER) 50 Mg Tabcr 100 MG PO BID for 30 Days Quetiapine Fumarate (Quetiapine Fumarate) 25 Mg Tab 12.5 MG PO HS for 30 Days, TAB Continued Medications: Apixaban (Eliquis) 2.5 Mg Tab 1 TAB PO BID Aspirin (Aspirin Ec) 81 Mg Tab 81 MG PO DAILY Cholecalciferol (Vitamin D3) 1,000 Unit Tab 1000 INTER.UNIT PO DAILY, TAB Donepezil HCl (Donepezil HCl) 5 Mg Tab 5 MG PO HS Ezetimibe (Zetia) 10 Mg Tab 10 MG PO DAILY Levothyroxine Sodium (Levothyroxine Sodium) 25 Mcg Tab 25 MCG PO QAM Losartan Potassium (Losartan Potassium) 50 Mg Tab 50 MG PO DAILY Ranitidine (Zantac) 150 Mg Tab 150 MG PO BID Sertraline HCl (Sertraline HCl) 25 Mg Tab 25 MG PO DAILY Simvastatin (Zocor) 40 Mg Tab 40 MG PO QPM, TAB Discontinued Medications: Metoprolol Tartrate (Lopressor) (Lopressor) 100 Mg Tab 100 MG PO HS, TAB Admission Information HPI (per Admitting provider): Pt is 87y/o F with PMH a-fib, HTN, CAD, CAD with hx bypass, stents, hypercholesterolemia, hypothyroidism, dementia, depression presents with c/o L hip pain. States pt was at [place] [employer] where she lives, and missed a step and fell. Pt thinks she may have hit her head, but denies any LOC and reports remembers falling. States was unable to bear any weight to left leg. Pt' s friend called pt's great nephew and he brought her in to ER today. Nephew reports pt c/o LYLE intermittently and c/o LYLE earlier but now pt denies any current LYLE. Nephew also reports that pt a couple of weeks ago was having hallucinations "see children running in apartment" and she was evaluated at ER at that time with essentially negative workup. Nephew reports pt does often have some confusion. Pt lives alone at the [facility] and that pt is usually independent. Denies fever/chills, diaphoresis, N/V/D/C, dizziness, syncope, vision changes, neck pain, CP, SOB, orthopnea, palpitations, cough, sore throat, choking, otalgia, rhinorrhea, abdominal pain, extremity paresthesias, extremity edema, rashes, urinary symptoms. Attempted to call pt's PCP office to verify medical hx and meds however unable to reach. Called pt's pharmacy [facility] in [place] to confirm meds. Pt has losartan listed on med list, however pharmacy states that she hasn't had that filled in months. Pt states that she does all her own meds, but is unsure what she is using at this time. Unable to find any previous echo in pt's [employer] or [facility]. In ER today Xray hip: subcapital fracture of L hip. CXR: no acute process, cardiomegaly without overt pulmonary edema. Negative CT scan head. EKG: a-fib, rate controlled. WBC: 12, H/H 14/43. GFR>60. BP:168/93, P:76, afebrile, O2: 93% on RA. Pt was given morphine 4mg and zofran 4mg in ER. Pt states that helped with pain, however family notes that pt more sleepy since the meds. Physical Exam (per Admitting): General Appearance: WD/WN, no apparent distress (pt lying supine in bed) Head: normocephalic, atraumatic Eyes: normal inspection, PERRL, EOMI, sclerae normal ENT: pharynx normal, + pertinent finding (hard of hearing) Neck: supple, no JVD, trachea midline, + pertinent finding (+approx 2cm soft non-tender mass to submental/submandibular region with no overlying skin discoloration) Respiratory/Chest: chest non-tender, lungs clear, normal breath sounds, no respiratory distress, no accessory muscle use Cardiovascular: no edema, normal peripheral pulses, + irregularly irregular Abdomen/GI: normal bowel sounds, non tender, soft Extremities/Musculoskelatal: no pedal edema, + pertinent finding (Noted left leg shortened and L foot mildly rotated laterally. Left hip:diffuse mild tenderness to palpation (examined after pt given pain med and reports much decreased pain). pt unable to attempt movement of left hip. no tenderness to L upper leg, L lower leg, L ankle or foot. Pedal pushes intact bilaterally with tenderness reproduced to left hip with left pedal push. Right hip/leg non-tender , ROM hip, knee, ankle intact. Upper arms bilaterally non-tender, ROM intact. Upper and Lower Bilaterally distal pulses intact, brisk capillary refill, sensation to light touch. ) Neurologic/Psych: alert, normal mood/affect, + pertinent finding (oriented to person, place, day, year, confused on month) Skin: normal color, warm/dry Hospital Course Confusion, multifactorial Metabolic Encephalopathy secondary to UTI CT head on admission showed no acute intracranial abnormality. Please avoid medication that can altered mental status Stable UTI urine cx grew E. coli and Enterobacter Was on Ancef for a couple days that was sensitive for E. Coli On IV Rocephin day 5 ( that covers both organisms) Will do Cefuroxime on discharge for 2 more days to cover for Enterobacter Failure to Thrive Continue Encourage to eat Continue boost BID with meals Stable LEFT HIP FRACTURE SECONDARY TO MECHANICAL FALL s/p left hip hemiarthroplasty POD#13 opioid medications held due to worsening encephalopathy Hb stable Continue PT/OT Fall precaution Will discharge to [facility] for Rehab today Follow up appointment in 2 weeks from the date of your surgery date. CAD: prior CABG, and previous PCI with stent Cardiology evaluated the patient preop as well TTE Report: -- Conclusions -- * The left ventricular cavity is small. * There is severe concentric left ventricular hypertrophy. * Left ventricular systolic function is normal. * The left ventricular wall motion is normal. * Ejection Fraction = 65-70%. * Diastolic dysfunction, Grade III (restrictive pattern), consistent with markedly increased left atrial pressure. * The left atrium is severely dilated. * There is mild mitral regurgitation. * There is moderate tricuspid regurgitation. * Right ventricular systolic pressure is elevated at 40-50mmHg. * There is a pacemaker lead in the right ventricle. continued on ASA, Losartan, Metoprolol, Simvastatin ATRIAL FIBRILLATION: S/P pacemaker Rate has been controlled PM interrogation performed, appropriate Continue digoxin, metoprolol Continue Eliquis and asa DEPRESSION: Continue Zoloft HTN: Continue home meds Monitor and titrate meds as needed HYPOTHYROIDISM: TSH 7, free T4 normal, subclinical hypothyroidism Ccontinue L-thyroxine GERD: Continue Zantac DYSLIPIDEMIA: Previous lipid panel from 04/2017: total: 170, HDL:81, LDL: 74, Triglycerides: 74 Continue Zocor and Zetia DVT px on Eliquis and Asa CODE STATUS DNR DISPOSITION Will discharge today to [facility] for inpatient rehab Total time spent on discharge = 40 minutes This includes examination of the patient, discharge planning, medication reconciliation, and communication with other providers. Discharge Instructions Discharge Instructions Date of Service Aug 17, 2017. Admission Reason for Admission: Atrial Fibrillation, Closed Fracture Of Left Hip Discharge Discharge Diagnosis / Problem: LEFT HIP FRACTURE, UTI, Confusion Afib with RVR , failure to thrive Discharge Goals Goal(s): Decrease discomfort, Improve function, Improve disease control Activity Recommendations Activity Limitations: resume your previous activity (as tolerated) . Instructions / Follow-Up Instructions / Follow-Up Discharge today to [facility] Follow up with your primary care provider once discharge from rehab Call to schedule follow appointment with Ortho within 1 week Follow ortho recommendation Continue PT/OT Fall precaution Complete course of abx with cefuroxime Current Hospital Diet Patient's current hospital diet: AHA Diet (Heart Healthy) Discharge Diet Recommended Diet: AHA Diet (Heart Healthy) Procedures Procedures Performed: Left Bipolar Hip Prosthesis Pending Studies Studies pending at discharge: no Medical Emergencies . Who to Call and When: Medical Emergencies: If at any time you feel your situation is an emergency, please call 911 immediately. . Non-Emergent Contact Non-Emergency issues call your: Primary Care Provider Call Non-Emergent contact if: you have a fever, your pain is not controlled, you have any medication questions . . "Provider Documentation" section prepared by Hossein Cortez. . Carburizing Furnace Operator Recommendations Carburizing Furnace Operator Recommendations: UOC DISCHARGE INSTRUCTIONS: HIP FRACTURE SELF CARE INSTRUCTIONS: A. You are to ambulate with a walker or crutches for approximately 6 weeks. B. You are WEIGHT BEARING TOLERATE on your operative lower extremity for at least 6 weeks. C. Wear low heeled shoes with non-slip soles D. Be sure that your floors are free of things that could trip you throw rugs, electrical cords, and small objects. Avoid wet and waxed floors, especially with crutches/walker/cane. E. Try to walk several times a day with rest periods between. F. You may shower 48 hours after surgery and get the incision area wet, but DO NOT soak or submerge incision area in water. (No baths, swimming pools, hot tubs ) G. You may have a large, band-aid like dressing over your incision (Aquacel). This will remain on your incision for 7 days, and then can be removed. You CAN shower with this on. If incision is leaking through the dressing, please call the office . H. Do NOT apply soap or any ointment/lotions directly over incision. I. You may use ice as needed to operative site. SPECIAL CARE INSTRUCTIONS: VERY IMPORTANT TO READ AND REVIEW A. You may be at risk for phlebitis or blood clots. a. Wear surgical stockings (NYLA hose) for 2 weeks after surgery to improve circulation and reduce swelling. b. Take your home medication eliquis and aspirin as directed by your medical doctor. This is your blood thinner. c. If you are on Coumadin- you will have daily/weekly blood work to monitor your levels. This will be done by either your family physician/ senior principal architect (if you are on Coumadin chronically) versus your orthopedic surgeon. Expect a phone call the day of or the day after your blood work is drawn to adjust your dose accordingly. B. There are a few signs you need to watch for after you are home. Call [facility] at [phone] if you experience any of the following: a. If you have a temperature of 101 degrees or higher. b. Sudden increase in pain in your hip not relieved by rest or pain medication. c. Any fluid or drainage from the incision; redness of the incision. d. Shortness of breath or chest pain. B. Please call [facility] at [phone] if you have any questions or concerns about your operation or recovery. C. Call your physician if: a. Temperature is greater than 101 degrees (F). b. Pain is not relieved by prescribed pain medications. c. Increase drainage or redness from incision. d. Unanswered questions or concerns. D. Pain Medication: a. You will be prescribed pain medication upon discharge that should last till your first post-operative appointment. b. If you experience nausea and/or skin rash, discontinue this medication and contact our office for an alternative medication. c. Caution- narcotic pain medication can cause constipation. FOLLOW UP VISIT: Please call [facility] at [phone] to schedule a follow up appointment 10-14 days from the date of your surgery date. VTE Core Measure Inpt VTE Proph given/why not?: Other Anticoagulation, SCD's Additional Copies To ElkeBryan johnson
[2017-08-17 13:22] VITALS: BP 137/85; PULSE 83; TEMP 36.9; O2SAT 97
== END 2017-08-17 14:00 | DRG 469 ==
LOC: C.EDB 12:22 → C.2E 15:14 → OBSVTOIN 16:00 → EDBEDREQ 16:03 → ENRESERV 16:12 → C.MS2W 08-09 20:18
PROVIDERS: ADMIT Hospitalist; ATTEND Internal Medicine
PROC: 0SRS0J9 Replacement of Left Hip Joint, Femoral Surface with Synthetic Substitute, Cemented, Open Approach (ICD-10-PCS; principal; 2017-08-04 07:30)
DX: S72.012A Unspecified intracapsular fracture of left femur, initial encounter for closed fracture (principal); G93.41 Metabolic encephalopathy; N39.0 Urinary tract infection, site not specified; F03.91 Unspecified dementia, unspecified severity, with behavioral disturbance; W10.1XXA Fall (on)(from) sidewalk curb, initial encounter; Y93.01 Activity, walking, marching and hiking; Y92.480 Sidewalk as the place of occurrence of the external cause; Y99.8 Other external cause status; B96.20 Unspecified Escherichia coli [E. coli] as the cause of diseases classified elsewhere; B96.89 Other specified bacterial agents as the cause of diseases classified elsewhere; R62.7 Adult failure to thrive; I48.2 Chronic atrial fibrillation; I25.10 Atherosclerotic heart disease of native coronary artery without angina pectoris; F32.9 Major depressive disorder, single episode, unspecified; I10 Essential (primary) hypertension; E03.9 Hypothyroidism, unspecified; K21.9 Gastro-esophageal reflux disease without esophagitis; E78.5 Hyperlipidemia, unspecified; Z66 Do not resuscitate; Z95.0 Presence of cardiac pacemaker; Z95.1 Presence of aortocoronary bypass graft; Z95.5 Presence of coronary angioplasty implant and graft; Z79.01 Long term (current) use of anticoagulants; Z79.82 Long term (current) use of aspirin; Z79.899 Other long term (current) drug therapy; Z82.49 Family history of ischemic heart disease and other diseases of the circulatory system; Z82.3 Family history of stroke; Z80.49 Family history of malignant neoplasm of other genital organs

== ENCOUNTER 2017-08-27 20:45 | Emergency (ER) | payer OTHER ==
[~2017-08-27] VITALS: Ht 147.3 cm; Wt 54.7 kg
[~2017-08-27 20:45] MED LIST changes: +ACET-1047 PO; -ASPEC81 PO; +ASPI81TA28 PO; +LNX125 PO; -METO100T14 PO; -METO50TA16 PO; +SRQ25 PO; +TPRSR50 PO
[2017-08-27 20:51] VITALS: TEMP 37.2; Ht 147.3 cm; Wt 54.7 kg
--- NOTE | 2017-08-27 20:56 | EMERGENCY ROOM VISIT NOTE ---
History Report prepared by Satish: Tunde Velasquez Under the Supervision of: Dr. Phuong Brunson M.D. First contact with patient: 20:48 Chief Complaint: FALL Stated Complaint: FALL, LACERATION TO FOREHEAD-FROM [facility] History of Present Illness The patient is an 87 year old female who presents to the Emergency Room via EMS from [facility] with complaints of sudden mechanical fall that occurred around an hour ago. Per the nursing staff, the patient was walking at [facility] and fell onto the floor. The patient says that after falling she tried to get up but she was unable to get up. She has a noted laceration to her forehead , but the patient denies any other injuries. The patient had a recent left hip replacement, per the nursing staff. The patient notes that she has a pacemaker and history of 2 stent placements. She is on aspirin daily. The patient denies any neck pain. Source of History: patient, nursing staff Onset: Around an hour ago Position: other (global - fall) Symptom Intensity: could not get up after fall Quality: other (mechanical) Associated Symptoms: No neck pain Note: Associated symptoms: Laceration to forehead. Denies any other injuries. Review of Systems See HPI for pertinent positives & negatives. A total of 10 systems reviewed and were otherwise negative. Past Medical & Surgical Medical Problems: (1) Atrial fibrillation (2) CAD (coronary artery disease) (3) Closed fracture of left hip (4) Dementia (5) Depression (6) HTN (hypertension) (7) Hx of cardiac pacemaker (8) Hyperlipidemia (9) Hypothyroidism (10) Knee pain Surgical Problems: (1) Hx of CABG (2) Hx of heart artery stent Family History FH: CAD (coronary artery disease) BROTHER (ND age 37) FH: cancer SISTER (cervical CA) Stroke FATHER Social History Smoking Status: Never Smoker Drug Use: none Marital Status: Occupation Status: retired Current/Historical Medications Scheduled Apixaban (Eliquis), 1 TAB PO BID Aspirin (Aspirin Ec), 81 MG PO DAILY Cholecalciferol (Vitamin D3), 1,000 INTER.UNIT PO DAILY Cholecalciferol (Vitamin D 1000 Unit), 1,000 INTER.UNIT PO DAILY Digoxin (Digoxin), 0.125 MG PO QAM Docusate Sodium (Docusate Sodium), 1 CAP PO BID Donepezil HCl (Donepezil HCl), 5 MG PO HS Ezetimibe (Zetia), 10 MG PO DAILY Famotidine (Pepcid), 20 MG PO DAILY Levothyroxine Sodium (Levothyroxine Sodium), 25 MCG PO QAM Losartan Potassium (Losartan Potassium), 50 MG PO DAILY Metoprolol Succinate (Metoprolol Succinate ER), 100 MG PO BID Quetiapine Fumarate (Quetiapine Fumarate), 12.5 MG PO HS Ranitidine (Zantac), 150 MG PO BID Sertraline HCl (Sertraline HCl), 25 MG PO DAILY Simvastatin (Zocor), 40 MG PO QPM Scheduled PRN Acetaminophen (Tylenol), 500 MG PO Q4 PRN for Bisacodyl (Bisac-Evac), 10 MG PO DAILY PRN for Constipation Magnesium Hydroxide (Milk Of Magnesia), 30 ML PO DAILY PRN for Constipation Polyethylene Glycol 3350 (Miralax), 17 GM PO DAILY PRN for Constipation Senna/Docusate Sod (Senokot S), 1 TAB PO QLUNCH PRN for Constipation Sodium Phosphate/Biphosphate (Fleet Enema), 1 EA MD DAILY PRN for Constipation Allergies Coded Allergies: No Known Allergies (Unverified , 08/02/17) Physical Exam Vital Signs Date Time Temp Pulse Resp B/P (MAP) Pulse Ox O2 Delivery O2 Flow Rate FiO2 08/27/17 23:08 75 18 145/94 97 08/27/17 20:51 37.2 65 18 159/86 96 Room Air Physical Exam Vital signs reviewed. General: Well-appearing 87 year old female, in no significant distress. HEENT: No scleral icterus, PERRLA, neck supple. 2 cm linear laceration to the left forehead, bleeding is controlled. TM's are partially obscured by cerumen but no hemotympanum appreciated. Cardiovascular: Regular rate and rhythm, no extra sounds. Pulmonary: Clear to auscultation bilaterally, normal work of breathing. Abdomen: Soft, nontender, nondistended, positive bowel sounds. Musculoskeletal: Nontender to palpation of the cervical, thoracic, and lumbosacral spine. Atraumatic, no peripheral edema. Pelvis is nontender to stress. Neurologic: Patient awake alert and oriented x 3, full strength in all 4 extremities. Cranial nerves 2 through 12 grossly intact. Skin: Warm, dry, no rash Medical Decision & Procedures ER Provider Diagnostic Interpretation: Radiology results as stated below per my review and radiologist interpretation: L HIP UNILATERAL 2 VIEWS CLINICAL HISTORY: L hip replacement, fall trauma COMPARISON: 08/04/2017 DISCUSSION: Total left hip replacement. Good contact between prosthetic and underlying bone. Soft tissue postoperative change. No evidence for fracture. Expected soft tissue postoperative change IMPRESSION: Anatomic alignment status post total left hip arthroplasty. No acute bony abnormality. The above report was generated using voice recognition software. It may contain grammatical, syntax or spelling errors. Electronically signed by: Cholo Lainez M.D. 08/27/2017 10:10 PM Dictated Date/Time: 08/27/2017 10:09 PM HEAD WITHOUT CONTRAST (CT) CT DOSE: 537.48 mGy.cm HISTORY: Trauma fall, [facility]I TECHNIQUE: Multiaxial CT images of the head were performed without the use of intravenous contrast. A dose lowering technique was utilized adhering to the principles of ALARA. Comparison: 08/02/2017 Findings: The paranasal sinuses and mastoid air cells are clear. The calvarium and skull base are intact. The ventricles and sulci are within normal limits. There is no mass, hematoma, midline shift, or acute infarct. Chronic age-related atrophy and chronic small vessel change. No acute intracranial hemorrhage. Impression: Chronic and age-related change. No acute process. No change from the prior study. The above report was generated using voice recognition software. It may contain grammatical, syntax or spelling errors. Electronically signed by: Cholo Lainez M.D. 08/27/2017 9:40 PM Dictated Date/Time: 08/27/2017 9:39 PM Medications Administered Medications (Trade) Dose Ordered Sig/Jyothi Route Start Time Stop Time Status Last Admin Dose Admin Lidocaine HCl (Buffered Lidocaine 1% Inj) 20 ml ONE ONCE INFIL 08/27/17 21:30 08/27/17 21:31 DC 08/27/17 21:30 20 ML Procedure Location: Left forehead. Total length: 2 cm. Complexity: Simple. Verbal consent was obtained after the risks and benefits were explained, including but not limited to bleeding, scarring, infection, pain, and bone/joint /nerve damage. At this time, the risks of the procedure are less than the risks of NOT performing the procedure. A time out was taken and the correct patient and site identified. The skin was prepped with betadine. The target area was anesthetized with 1 ml of 1% lidocaine without epinephrine. Copious irrigation was performed using normal saline. The skin was re-prepped with betadine and a sterile field set. The wound was explored for foreign bodies and none found. Examination revealed no injury to deep structures such as tendons, bone, or significant blood vessels. Debridement was not performed. The wound edges were approximated using 7, 6-0 simple interrupted Ethilon sutures. Hemostasis and excellent approximation was achieved. Antibacterial ointment and a sterile dressing applied. Detailed wound care instructions and signs and symptoms of infection reviewed with the patient. No complications and the patient tolerated the procedure well. ED Course 2049: Past medical records reviewed. The patient was evaluated in room B6. A complete history and physical examination was performed. 2129: Ordered Buffered Lidocaine 1% Inj 20 ml INFIL. 2204: Upon reevaluation, the patient appeared to have improvement of her symptoms. I discussed findings with her. She verbalized agreement of the treatment plan. She was discharged home. Medical Decision Differential diagnosis: Intracranial injury, cervical spine injury, intrathoracic injury, intra- abdominal injury, musculoskeletal injury. This patient was evaluated and appeared to be in no significant distress. CT scan of the head was performed and reveals no evidence of acute intracranial pathology. Left hip x-ray reveals hardware in good position. Eyebrow laceration was repaired, please see my note above. Patient tolerated procedure well. She was discharged to [facility] for further management. Wound care instructions were given. The patient will return to the ER for worsening of symptoms or any medical concerns. Medication Reconcilliation Current Medication List: was personally reviewed by me Blood Pressure Screening Patient's blood pressure: Elevated blood pressure Blood pressure disposition: Elevated BP felt to be situational Impression Primary Impression: Fall Additional Impression: Closed head injury Scribe Attestation The scribe's documentation has been prepared under my direction and personally reviewed by me in its entirety. I confirm that the note above accurately reflects all work, treatment, procedures, and medical decision making performed by me. Departure Information Dispostion Home / Self-Care Referrals No Doctor, Assigned (PCP) Patient Instructions ED Head Injury Closed, My [facility] Additional Instructions Diagnosis: Closed head injury, scalp laceration Keep wound clean and dry. No water on the area for 12-24 hrs then no soaking until sutures removed. Do not allow any crusting or dried blood to accumulate on sutures. If this occurs, use a 1:1 solution of hydrogen peroxide/water on a Q-tip to clean the wound. Use an antibiotic ointment for 3-4 days, then let wound dry. Suture removal in 5-7 days. Follow up sooner for any signs of infection (increasing redness, swelling, drainage). Ice and elevate for swelling and pain. Tylenol 650 mg every 6 hrs for pain. Keep covered when in sun until sutures removed then SPF 50 or higher for one year. Vitamin E oil if desired two weeks after suture removal for reduction of scar. Please read the head injury handout. Follow-up with your physician this week for reevaluation. Return to the ER for worsening of symptoms or any medical concerns. Problem Qualifiers Primary Impression: Fall Encounter type: initial encounter Qualified Codes: W19.XXXA - Unspecified fall, initial encounter Additional Impression: Closed head injury Encounter type: initial encounter Qualified Codes: S09.90XA - Unspecified injury of head, initial encounter
[2017-08-27] MEDS ORDERED: MOML PO (21:27)
[2017-08-27] MEDS ORDERED: POLY335019 PO (21:27)
[2017-08-27] MEDS ORDERED: SODIENE PR (21:27)
[2017-08-27] MEDS ORDERED: ACET-1256 PO (21:27)
[2017-08-27] MEDS ORDERED: SENN-65 PO (21:27)
[2017-08-27] MEDS ORDERED: CHOL100027 PO (21:27)
[2017-08-27] MEDS ORDERED: DLCS PO (21:27)
[2017-08-27] MEDS ORDERED: DOCU100C31 PO (21:27)
[2017-08-27] MEDS ORDERED: FAMO20TA11 PO (21:28)
[2017-08-27] MEDS ORDERED: XYLOCAINE 1%/SOD BICARB 20 ML VIAL INFIL ONE (21:30)
--- NOTE | 2017-08-27 21:41 | DIAGNOSTIC IMAGING REPORT ---
HEAD WITHOUT CONTRAST (CT) CT DOSE: 537.48 mGy.cm HISTORY: Trauma fall, [facility]I TECHNIQUE: Multiaxial CT images of the head were performed without the use of intravenous contrast. A dose lowering technique was utilized adhering to the principles of ALARA. Comparison: 08/02/2017 Findings: The paranasal sinuses and mastoid air cells are clear. The calvarium and skull base are intact. The ventricles and sulci are within normal limits. There is no mass, hematoma, midline shift, or acute infarct. Chronic age-related atrophy and chronic small vessel change. No acute intracranial hemorrhage. Impression: Chronic and age-related change. No acute process. No change from the prior study. The above report was generated using voice recognition software. It may contain grammatical, syntax or spelling errors. Electronically signed by: Cholo Lainez M.D. 08/27/2017 9:40 PM Dictated Date/Time: 08/27/2017 9:39 PM
--- NOTE | 2017-08-27 22:11 | DIAGNOSTIC IMAGING REPORT ---
L HIP UNILATERAL 2 VIEWS CLINICAL HISTORY: L hip replacement, fall trauma COMPARISON: 08/04/2017 DISCUSSION: Total left hip replacement. Good contact between prosthetic and underlying bone. Soft tissue postoperative change. No evidence for fracture. Expected soft tissue postoperative change IMPRESSION: Anatomic alignment status post total left hip arthroplasty. No acute bony abnormality. The above report was generated using voice recognition software. It may contain grammatical, syntax or spelling errors. Electronically signed by: Cholo Lainez M.D. 08/27/2017 10:10 PM Dictated Date/Time: 08/27/2017 10:09 PM
[2017-08-27 23:08] VITALS: BP 145/94; PULSE 75; O2SAT 97
== END 2017-08-27 23:18 | disposition home or self-care (01) ==
LOC: EDBD 20:45 → C.EDB 20:47
DX: S01.81XA Laceration without foreign body of other part of head, initial encounter (principal); W19.XXXA Unspecified fall, initial encounter; Z96.642 Presence of left artificial hip joint; Z95.0 Presence of cardiac pacemaker; Z95.5 Presence of coronary angioplasty implant and graft; I48.91 Unspecified atrial fibrillation; I10 Essential (primary) hypertension; E78.5 Hyperlipidemia, unspecified; E03.9 Hypothyroidism, unspecified; Z79.82 Long term (current) use of aspirin; Z82.49 Family history of ischemic heart disease and other diseases of the circulatory system; Z80.49 Family history of malignant neoplasm of other genital organs; Z82.3 Family history of stroke